=== PATIENT | female | born 1930 | race Caucasian/White ===

== ENCOUNTER → 2016-09-03 | Outpatient (REF) | payer MEDICARE, OTHER ==
[~2016-09-03] MED LIST: AMLO5TAB2 PO; ATEN100T PO; ATEN25TA PO; BISA10SU4 PR; CLONI1TA PO; FEBU40TA PO; LASI40TA PO; LOMO2.5T PO; NYST10PW TOP; TYLE325T5 PO
[2016-09-03 10:47] LABS: MEAN CORPUSCULAR HEMOGLOBIN 31.1 pg (27.0-33.0); MEAN CORPUSCULAR HGB CONC 32.8 g/dl (32.0-36.5); MEAN CORPUSCULAR VOLUME 94.7 fl (80.0-96.0); RED CELL DISTRIBUTION WIDTH 13.3 % (11.5-14.5); WHITE BLOOD COUNT 9.7 K/mm3 (4.0-10.0)
[2016-09-03 11:14] LABS: CALCIUM LEVEL 9.3 MG/DL (8.8-10.2); CREATININE FOR GFR 1.86 MG/DL (0.55-1.02); GLOMERULAR FILTRATION RATE 27.2 (>32)
== END ==
PROVIDERS: ATTEND Internal Medicine
DX: I50.9 Heart failure, unspecified (principal)

== ENCOUNTER → 2016-09-09 | Outpatient (REF) ==
[2016-09-09 12:18] LABS: MEAN CORPUSCULAR HEMOGLOBIN 32.3 pg (27.0-33.0); MEAN CORPUSCULAR HGB CONC 34.1 g/dl (32.0-36.5); MEAN CORPUSCULAR VOLUME 94.8 fl (80.0-96.0); RED CELL DISTRIBUTION WIDTH 12.4 % (11.5-14.5); WHITE BLOOD COUNT 9.6 K/mm3 (4.0-10.0)
[2016-09-09 13:12] LABS: CALCIUM LEVEL 9.6 MG/DL (8.8-10.2); CREATININE FOR GFR 1.77 MG/DL (0.55-1.02); GLOMERULAR FILTRATION RATE 28.8 (>32)
== END ==
PROVIDERS: ATTEND Internal Medicine
DX: I50.9 Heart failure, unspecified (principal)

== ENCOUNTER → 2016-09-16 | Outpatient (REF) ==
[2016-09-16 14:11] LABS: CALCIUM LEVEL 8.8 MG/DL (8.8-10.2); CREATININE FOR GFR 1.88 MG/DL (0.55-1.02); GLOMERULAR FILTRATION RATE 26.9 (>32); POTASSIUM SERUM 5.1 MEQ/L (3.5-5.1)
[2016-09-16 14:14] LABS: MEAN CORPUSCULAR HEMOGLOBIN 31.3 pg (27.0-33.0); MEAN CORPUSCULAR VOLUME 94.9 fl (80.0-96.0); RED CELL DISTRIBUTION WIDTH 13.2 % (11.5-14.5); WHITE BLOOD COUNT 10.7 K/mm3 (4.0-10.0)
== END ==
PROVIDERS: ATTEND Internal Medicine
DX: N18.9 Chronic kidney disease, unspecified (principal)

== ENCOUNTER 2016-10-14 19:53 | Inpatient (IN) | payer MEDICARE, OTHER ==
[~2016-10-14] VITALS: Ht 154.9 cm; Wt 83.5 kg
[~2016-10-14 19:53] MED LIST changes: -ACET65SU PR; -AMLO10TA2 PO; -ENEMENE3 PR; -FURO20TA2 PO; -MILKSUS PO; -MIRT1TAB PO
[2016-10-14] MEDS ORDERED: ACETAMINOPHEN 325 MG TAB As Ordered ONE (20:39)
[2016-10-14] MEDS ORDERED: ASPIRIN 325 MG TAB As Ordered ONE (20:39)
[2016-10-14 20:44] LABS: ABG BASE EXCESS 1.3 (-2.0-2.0); ABG DEVICE NASAL CANN; ABG HCO3 24.3 MEQ/L (22.0-26.0); ABG PARTIAL PRESSURE CO2 33.6 mmHg (35.0-45.0); ABG PARTIAL PRESSURE O2 67.8 mmHg (75.0-100.0); ABG STANDARD HCO3 25.6 MEQ/L (22.0-26.0); ABG TOTAL CO2 25.3 MEQ/L (23.0-31.0); ABG pH (ARTERIAL) 7.477 UNITS (7.350-7.450)
[2016-10-14 20:54] LABS: BASO % 0.2 % (0.0-1.0); EOS # 0.1 K/mm3 (0.0-0.50); EOS % 0.8 % (0.0-3.0); LARGE UNSTAINED CELL # 0.2 K/mm3 (0.0-0.4); LARGE UNSTAINED CELL % 1.6 % (0.0-4.0); LYMPH # 0.6 K/mm3 (1.5-4.5); LYMPH % 3.6 % (24.0-44.0); MEAN CORPUSCULAR HEMOGLOBIN 30.6 pg (27.0-33.0); MEAN CORPUSCULAR HGB CONC 32.6 g/dl (32.0-36.5); MEAN CORPUSCULAR VOLUME 93.9 fl (80.0-96.0); MONO # 0.6 K/mm3 (0.0-0.8); MONO % 4.8 % (0.0-5.0); NEUTROPHILS # 10.7 K/mm3 (1.8-7.7); PLATELET COUNT, AUTOMATED 179 k/mm3 (150-450); RED CELL DISTRIBUTION WIDTH 12.2 % (11.5-14.5); WHITE BLOOD COUNT 12.1 K/mm3 (4.0-10.0)
[2016-10-14 21:14] LABS: ALBUMIN/GLOBULIN RATIO 0.86 (1.00-1.93); BILIRUBIN,DIRECT 0.2 MG/DL (0.0-0.2); BILIRUBIN,TOTAL 0.4 MG/DL (0.2-1.0); CALCIUM LEVEL 8.2 MG/DL (8.8-10.2); CREATININE FOR GFR 2.18 MG/DL (0.55-1.02); GLOMERULAR FILTRATION RATE 22.7 (>32); POTASSIUM SERUM 4.7 MEQ/L (3.5-5.1); TOTAL PROTEIN 6.5 GM/DL (6.4-8.2)
[2016-10-14 21:28] LABS: INR 1.05
[2016-10-14] MEDS ORDERED: LevoFLOXacin/DEXTROSE 750 MG/150 ML BAG (J1956) As Ordered ONE (22:46)
[2016-10-14] MEDS ORDERED: AMLO10TA2 PO (23:25)
[2016-10-14] MEDS ORDERED: FURO20TA2 PO (23:25)
[2016-10-14] MEDS ORDERED: MILKSUS PO (23:25)
[2016-10-14] MEDS ORDERED: ATEN25TA PO (23:25)
[2016-10-14] MEDS ORDERED: ENEMENE3 PR (23:25)
[2016-10-14] MEDS ORDERED: MIRT1TAB PO (23:25)
[2016-10-14] MEDS ORDERED: ACET65SU PR (23:25)
[2016-10-15] VITALS (8 sets, daily range): BP systolic 107–174; BP diastolic 51–78
[2016-10-15] MEDS ORDERED: MOM 30ML SUSPENSION UDC PO PRN (00:15)
[2016-10-15] MEDS ORDERED: BISACODYL 10 MG SUPP PR PRN (00:15)
[2016-10-15] MEDS ORDERED: FLEET ENEMA PR PRN (00:15)
[2016-10-15] MEDS ORDERED: VANCOMYCIN INTERMITTENT/PULSE DOSING BY CLINICAL PHARMACIST PER DOSING PROTOCOL XX SCH (01:15)
--- NOTE | 2016-10-15 01:25 | HPEPDOC ---
General Date of Admission Oct 15, 2016 at 00:12 Chief Complaint The patient is a 86-year-old female admitted with a reason for visit of Healthcare Associated Pneumonia. History of Present Illness 86-year-old female with past medical history of gout, depression, dementia, hypertension, and CHF who presented from the assisted living facility for evaluation of respiratory distress. The extent of this history is limited given the patient's baseline dementia. According to EMS documentation the patient was noted to be in respiratory distress, with O2 saturation of 88% on room air, which improved with 2 L of nasal cannula. The patient also appeared to be more confused and agitated compared to her baseline. There were no reports suggesting any fevers, chills, chest pain, abdominal pain, or any vomiting/ diarrhea noted at the living facility. In the ER, a chest x-ray revealed an infiltrate suggestive of pneumonia. The patient has been started on broad-spectrum antibiotics, and she will be admitted to the hospitalist service for further evaluation and management of her hypoxia secondary to pneumonia. Home Medications Scheduled Amlodipine Besylate (Amlodipine Besylate) 10 Mg Tab 10 MG PO DAILY (Reported) Atenolol (Atenolol) 25 Mg Tab 12.5 MG PO DAILY (Reported) Febuxostat (Uloric) 40 Mg Tab 40 MG PO DAILY (Reported) AT DINNERTIME Furosemide (Furosemide) 20 Mg Tab 10 MG PO 3XW (Reported) FRIDAY, FRIDAY, FRIDAY AT QAM Mirtazapine (Mirtazapine) 7.5 Mg Tab 7.5 MG PO QHS (Reported) Scheduled PRN Acetaminophen (Tylenol) 325 Mg Tab 650 MG PO Q4H PRN PRN PAIN / FEVER (Reported ) Acetaminophen (Acetaminophen) 650 Mg Supp 650 MG NE Q4H PRN PRN PAIN / FEVER ( Reported) Bisacodyl (Bisacodyl) 10 Mg Sup 10 MG NE DAILY PRN PRN CONSTIPATION (Reported) Milk Of Magnesia (Milk of Magnesia) 1,200 Mg/15 Ml Tiffany 30 ML PO DAILY PRN PRN CONSTIPATION (Reported) Sodium Phosphate/Biphosphate (Enema 7-19 gm/118Ml) 1 Byron Byron 1 BYRON NE DAILY PRN PRN CONSTIPATION (Reported) Allergies Coded Allergies: No Known Drug Allergy (Verified Allergy, Unknown, 12/07/12) Past Medical History Medical History As noted in HPI. Surgical History Breast lumpectomy, hysterectomy Social History Unable to obtain social history given the patient's baseline dementia. Review of Symptoms Other systems Unable to fully obtain review of systems given the patient's baseline dementia. Physical Examination General Exam: Positive: Cooperative, No Acute Distress, Other (patient only oriented to person, but not to place, time, or situation) ENT Exam: Positive: Atraumatic, Mucous membr. moist/pink Neck Exam: Negative: JVD Chest Exam: Positive: Diminished Heart Exam: Positive: Normal S1, Normal S2, Rate Normal Telemetry: Positive: Sinus Abdomen Exam: Positive: Soft, Negative: Tenderness Extremity Exam: Positive: Swelling (1+ pitting edema in the lower extremities bilaterally), Negative: Tenderness Vital Signs As noted in the EMR. Laboratory Data Labs 24H Laboratory Tests 2 10/14/16 20:18: Arterial Blood pH 7.477H, Arterial Blood Partial Pressure CO2 33.6L, Arterial Blood Partial Pressure O2 67.8L, Arterial Blood Total CO2 25.3, Arterial Blood HCO3 24.3, Arterial Blood Base Excess 1.3, Arterial Blood Oxygen Saturation 94.7L, Blood Gas Bicarbonate Standard 25.6, Oxygen Delivery Device NASAL ERICK 10/14/16 20:25: Activated Partial Thromboplast Time 32.6, Aspartate Amino Transf (AST/SGOT) 41H , Alanine Aminotransferase (ALT/SGPT) 18, Alkaline Phosphatase 75, Total Bilirubin 0.4, Direct Bilirubin 0.2, Albumin 3.0L, Albumin/Globulin Ratio 0.86L , Anion Gap 10, White Blood Count 12.1H, Red Blood Count 4.21, Hemoglobin 12.9, Hematocrit 39.5, Mean Corpuscular Volume 93.9, Mean Corpuscular Hemoglobin 30.6 , Mean Corpuscular Hemoglobin Concent 32.6, Red Cell Distribution Width 12.2, Platelet Count 179, Neutrophils (%) (Auto) 89.0H, Lymphocytes (%) (Auto) 3.6L, Monocytes (%) (Auto) 4.8, Eosinophils (%) (Auto) 0.8, Basophils (%) (Auto) 0.2, Neutrophils # (Auto) 10.7H, Lymphocytes # (Auto) 0.6L, Monocytes # (Auto) 0.6, Eosinophils # (Auto) 0.1, Basophils # (Auto) 0.0, C-Reactive Protein, Quantitative 7.89H, Calcium Level 8.2L, Glomerular Filtration Rate 22.7L, Lactic Acid (Sepsis) 1.5, Large Unclassified Cells # 0.2, Large Unclassified Cells % 1.6, Prothromb Time International Ratio 1.05, Prothrombin Time 13.8, Total Protein 6.5 10/14/16 20:35: Urine Amorphous Sediment MODERATEH, Urine Appearance CLOUDYH, Urine Color YELLOW , Urine pH 5.0, Urine Specific [place] 1.013, Urine Protein 1+H, Urine Glucose ( UA) NEGATIVE, Urine Ketones NEGATIVE, Urine Urobilinogen 0.2, Urine Bilirubin NEGATIVE, Urine Leukocyte Esterase NEGATIVE, Urine Bacteria (Auto) 1+H, Urine Blood NEGATIVE, Urine Calcium Carbonate Cryst(Auto) , Urine Calcium Oxalate Cryst (Auto) , Urine Calcium Phosphate Coral (Auto) , Urine Cellular Casts , Urine Cystine Crystals , Urine Granular Casts (Auto) , Urine Hyaline Casts (Auto ) 0, Urine Leucine Crystals , Urine Mucus (Auto) , Urine Nitrite NEGATIVE, Urine Oval Fat Bodies (Auto) , Urine RBC (Auto) 1, Urine Renal Epithelial Cells , Urine Sperm (Auto) , Urine Squamous Epithelial Cells 1, Urine Transitional Epithelial Cells , Urine Trichomonas (Auto) , Urine Triple Phosphate Cryst (Auto ) , Urine Tyrosine Crystals , Urine Uric Acid Crystals (Auto) , Urine WBC (Auto ) 1, Urine Waxy Casts (Auto) , Urine Yeast-Like Cells (Auto) CBC/BMP Laboratory Tests 10/14/16 20:25 Red Blood Count 4.21, Mean Corpuscular Volume 93.9, Mean Corpuscular Hemoglobin 30.6, Mean Corpuscular Hemoglobin Concent 32.6, Red Cell Distribution Width 12.2 , Neutrophils (%) (Auto) 89.0 H, Lymphocytes (%) (Auto) 3.6 L, Monocytes (%) ( Auto) 4.8, Eosinophils (%) (Auto) 0.8, Basophils (%) (Auto) 0.2, Neutrophils # ( Auto) 10.7 H, Lymphocytes # (Auto) 0.6 L, Monocytes # (Auto) 0.6, Eosinophils # (Auto) 0.1, Basophils # (Auto) 0.0 Microbiology Microbiology 10/14/16 Blood Culture, Received Pending 10/14/16 Blood Culture, Received Pending 10/14/16 Respiratory Virus Panel (PCR) (LATONYA) - Final, Complete 10/14/16 Urine Culture, Received Pending Plan / VTE VTE Prophylaxis Ordered?: Yes Plan Plan Healthcare associated pneumonia We will admit the patient to the telemetry unit Chest x-ray noted Blood cultures, sputum cultures, respiratory panel ordered We will empirically cover the patient with vancomycin and Zosyn Continue to monitor the patient's respiratory status Chronic kidney disease Serum creatinine noted to be 2.18 (the patient's serum creatinine noted to be between 1.8 and 2.0 at baseline) Will withhold from nephrotoxic agents at this time Gentle IV fluid hydration Repeat BMP in a.m. ? Atrial fibrillation noted on EKG Patient given 325 mg of aspirin in the ER Patient noted to be in normal sinus rhythm on gambling monitor Possibly precipitated by underlying pneumonia TSH level, echocardiogram ordered Repeat EKG in the a.m. Hypertension, stable Continue current regimen History of congestive heart failure Appears volume compensated at this time We'll continue the patient's dose of Lasix 10 mg every Mondays, Wednesdays, Fridays Echocardiogram ordered Gout Continue Uloric Constipation Continue bowel regimen as ordered DVT prophylaxis-heparin subcutaneous The patient will be admitted under the service of Dr. Garcia, who will begin to follow the patient on 10/15/16 at 7 AM. JOHN MONTANO MD Oct 15, 2016 01:24
--- NOTE | 2016-10-15 01:48 | PHACANCOPD ---
PHARMACY VANCOMYCIN DOSING Pt Demographics Demographics Patient Age:86 , Weight:90.800 , Gender: female Adjusted Body Weight Date: 10/15/16, Adjusted Body Weight: [64.3] Kg Events Past 24 Hours Events Past 24 Hours: NO: Change in CrCl, Dialysis, Diuretic Therapy, Elevation in WBC, Fever, Other, Pending Diagnostics, Pending Procedures Vancomycin Vancomycin Target Ranges: 15-20 mcg/ml Vancomycin Load Y/N: Yes Load Dose Date Time Vancomycin Load Dose: 1000MG Date: 10-15 Time: 0200 Vancomycin Dose Date: 10/15/16. Current Vancomycin Dose: Intermittent Dosing?: Yes Labs Labs Item Value Date Time White Blood Count 12.1 K/mm3 H 10/14/162024 Creatinine 2.18 MG/DL H 10/14/162024 Blood Urea Nitrogen 43 MG/DL H 10/14/162024 Vital Signs Label Value Date Time Patient Temperature 97.8 degrees F 10/15/16 0129 Temperature Source Tympanic 10/15/16 0129 Micro Microbiology 10/14/16 Blood Culture, Received Pending 10/14/16 Blood Culture, Received Pending 10/14/16 Respiratory Virus Panel (PCR) (LATONYA) - Final, Complete 10/14/16 Urine Culture, Received Pending Creatinine Clearance Date:10/15/16. Creatinine Clearance: [14]. Pending Labs random 10-15 in am Assessment and Plan Maintaining Current Dose?: Yes Reason for dose change: No Dose Change Pharmacist Note Pharmacist Note Date: 10/15/16. Pharmacist note:Dosed intermittent per levels. First random am of 2-. Will continue to monitor and make adjustments as needed. MIKAELA DUQUE PHARMACY Oct 15, 2016 01:48
[2016-10-15] MEDS ORDERED: VANCOMYCIN HCL 1,000 MG, VIAL MATE ADAPTER 1 EACH in D5W 250 ML IV SCH (02:00)
[2016-10-15] MEDS ORDERED: VANCOMYCIN 1000 MG/20 ML VIAL (J3370) As Ordered ONE (02:04)
[2016-10-15] MEDS ORDERED: PIPERACILLIN/TAZOBACTAM SOD 2.25 GM in D5W MINI-BAG PLUS 50 ML IV SCH (03:00)
[2016-10-15] MEDS ORDERED: ZOSYN 2.25 GM VIAL (J2543) As Ordered ONE (03:22)
[2016-10-15] MEDS: PIPERACILLIN/TAZOBACTAM SOD 2.25 GM in D5W MINI-BAG PLUS 50 ML IV SCH ×3 (04:22→22:31)
[2016-10-15] MEDS ORDERED: ACETAMINOPHEN TAB 650MG DOSE (2X325MG) As Ordered ONE (04:25)
[2016-10-15] MEDS: ACETAMINOPHEN TAB 650MG DOSE (2X325MG) PO PRN ×2 (04:29→16:10)
[2016-10-15] MEDS ORDERED: HEPARIN SOD (PORCINE) 5000 UNITS/ML VIAL As Ordered ONE (06:34)
[2016-10-15] MEDS: HEPARIN SOD (PORCINE) 5000 UNITS/ML VIAL SC SCH ×3 (06:42→22:31)
[2016-10-15 07:41] LABS: MEAN CORPUSCULAR HEMOGLOBIN 31.4 pg (27.0-33.0); MEAN CORPUSCULAR HGB CONC 33.7 g/dl (32.0-36.5); WHITE BLOOD COUNT 7.9 K/mm3 (4.0-10.0)
--- NOTE | 2016-10-15 07:49 | REP ---
Clinical: Fever. Chest pain. Technique: AP and lateral. Comparison: 08/23/2016. Findings: Mediastinum and cardiac silhouette are stable. Lung ram demonstrate chronic interstitial changes. Superimposed basilar atelectasis/infiltrate cannot be excluded. Small left pleural effusion cannot be excluded. No pneumothorax. Skeletal structures stable. Impression: Limited examination. Cannot exclude superimposed atelectasis or small left pleural effusion. Signed by Jeff Goodwin MD 10/15/2016 07:39 A
[2016-10-15 08:10] LABS: CALCIUM LEVEL 8.1 MG/DL (8.8-10.2); CREATININE FOR GFR 2.19 MG/DL (0.55-1.02); GLOMERULAR FILTRATION RATE 22.5 (>32); POTASSIUM SERUM 4.3 MEQ/L (3.5-5.1); VANCOMYCIN RANDOM 17.3 UG/ML
--- NOTE | 2016-10-15 08:11 | ECGEPIP ---
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
--- NOTE | 2016-10-15 08:13 | ECGEPIP ---
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
[2016-10-15] MEDS: amLODIPine 10 MG TAB PO SCH (09:00)
[2016-10-15] MEDS ORDERED: ATENOLOL 25 MG TAB PO SCH (09:00)
[2016-10-15] MEDS ORDERED: ONDANSETRON 4MG/2ML VIAL (J2405) As Ordered ONE (11:36)
[2016-10-15] MEDS: ONDANSETRON 4MG/2ML VIAL (J2405) IV PRN ×2 (11:40→12:43)
--- NOTE | 2016-10-15 12:12 | EDDOCDS ---
Nurse's Notes [facility] Name: Ariela Driscoll Age: 86 yrs Sex: Female : 1930 Arrival Date: 10/14/2016 Time: 19:53 Bed Admit Hold Private MD: Diagnosis: Lobar pneumonia, unspecified organism;Atrial fibrillation and flutter Presentation: 10/14 20:02 Presenting complaint: EMS states: Pt to ED from assisted living facility for evaluation mv5 of "respiratory distress", EMS reported no respiratory distress observed upon arrival, RA 02 sat 88%, improved with 2LNC. Pt had episode of vomiting when moved from bed to stretcher per EMS. Pt warm to touch. Pt confused at baseline, arrives awake and alert, MESSINA. Adult Sepsis Screening: The patient does not have new or worsening altered mentation. Patient's respiratory rate is less than 22. Systolic blood pressure is greater than 100. Patient has a qSOFA score of 0- Negative Sepsis Screen. Suicide/Homicide risk assessment- the patient denies having any suicidal and/or homicidal ideations and does not present with any other emotional, behavioral or mental health complaints. Status: Patient is not a front services agent or dependent. Transition of care: patient was received from [facility]-assisted. 20:02 Acuity: ASHWINI Level 3 mv5 20:02 Method Of Arrival: Ambulance mv5 Triage Assessment: 20:11 General: Appears in no apparent distress. Pain: Denies pain. The patient is triaged at mv5 the bedside. See Assessment in Nurses Notes section of ED record. Neurological: Level of Consciousness is awake, alert, Oriented to person. Cardiovascular: Capillary refill < 3 seconds Heart tones S1 S2 present. Respiratory: Airway is patent Respiratory effort is even, unlabored, Respiratory pattern is regular, symmetrical. Derm: Skin is pink, warm & dry. Historical: - Allergies: no known allergies; - Home Meds: 1. mirtazapine 7.5 mg Oral tab once daily 2. furosemide 10 mg tab oral tab every Mon/Wed/Fri 3. amlodipine 10 mg Oral tab 1 tab once daily 4. atenolol 12.5 mg tab Oral tab once daily 5. bisacodyl 10 mg Rectal supp 1 suppository as needed 6. acetaminophen 325 mg Oral tab 2 tabs as needed - PMHx: breast cancer; CHF; Dementia; Depression; Gout; Hypertension; UTI; - PSHx: breast lumpectomy; Hysterectomy; - Social history: Smoking status: unknown if patient ever smoked tobacco. No barriers to communication noted, The patient speaks fluent Danish. - Family history: No immediate family members are acutely ill. - : The pt / caregiver states he / she is not on anticoagulants. Home medication list is obtained from PCP visit record. - Exposure Risk Screening:: None identified. Assessment: 20:13 General: See triage assessment.. mv5 20:44 General: Appears in no apparent distress, comfortable, well nourished, well groomed, mv5 Behavior is cooperative, pleasant. Pain: Denies pain. Neurological: Oriented to person. Cardiovascular: Rhythm is atrial flutter variable. Respiratory: Airway is patent Respiratory effort is even, unlabored, Respiratory pattern is regular, symmetrical, Breath sounds are diminished in left posterior lower lobe, right posterior middle lobe and right posterior lower lobe. GI: No deficits noted. : Straight cath completed, pt tolerated well. Small amount of clear yellow urine obtained. Urine is clear, wears incontinence brief. Derm: Skin is pink, warm & dry. 21:20 General: Appears in no apparent distress, to be sleeping. Pain: Denies pain. mv5 Cardiovascular: Rhythm is irregular. Respiratory: Airway is patent Respiratory effort is even, unlabored, Respiratory pattern is regular, symmetrical. Derm: Skin is pink, warm & dry. 22:40 General: Appears in no apparent distress, well nourished, Behavior is cooperative. mv5 Neurological: Level of Consciousness is Oriented to person, Pt wakes to verbal stim.. Cardiovascular: Rhythm is atrial flutter. Respiratory: Airway is patent Respiratory effort is even, unlabored, Respiratory pattern is regular, symmetrical, Derm: Skin is pink, warm & dry. 23:21 General: Appears in no apparent distress, comfortable, Behavior is cooperative, mv5 pleasant. Pain: Location: left quadriceps and left knee Pain currently is 4 out of 10 on a pain scale. Pain does not radiate. Pain began Family reports hx of leg pain r/t arthritis. Pt treats with Tylenol, pt administered Tylenol previously. Will continue to monitor. Cardiovascular: Rhythm is sinus rhythm No ectopy. Derm: Skin is pink, warm & dry. 10/15 00:11 General: Appears in no apparent distress, Pt assisted to reposition in bed.. mv5 Cardiovascular: Rhythm is sinus rhythm No ectopy. Respiratory: Airway is patent Respiratory effort is even, unlabored, Respiratory pattern is regular, symmetrical. Derm: Skin is pink, warm & dry. 02:23 Cardiovascular: Rhythm is atrial fibrillation. sep 06:26 Cardiovascular: Rhythm is atrial fibrillation Other afib with jorge arrythmia. sep Vital Signs: 10/14 19:58 Temp 103.5(TE); ar3 20:05 BP 152 / 77; Pulse 81; Resp 18; Temp 103.5(TE); Pulse Ox 92% on 3 lpm NC; Weight 88.77 lr2 kg; Height 61 in. (154.94 cm); Pain 0/10; 20:37 Temp 101.1(R); mv5 20:44 BP 165 / 65; Pulse 85; Resp 18; Pulse Ox 94% 2 lpm ; mv5 21:18 BP 110 / 51 (auto/); mv5 21:18 Pulse 68 MON; Resp 16; Temp 99.8(TE); Pulse Ox 92% ; mv5 22:18 BP 131 / 61 (auto/); mv5 22:18 Pulse 72 MON; Pulse Ox 93% ; mv5 22:48 BP 138 / 65 (auto/); mv5 22:48 Pulse 58 MON; Pulse Ox 93% ; mv5 23:18 BP 136 / 60 (auto/); mv5 23:18 Pulse 60 MON; Pulse Ox 93% ; mv5 23:48 BP 132 / 63 (auto/); mv5 23:48 Pulse 58 MON; Pulse Ox 94% ; mv5 10/15 00:03 BP 103 / 55 (auto/); sep 00:04 Pulse 122 MON; Pulse Ox 98% ; sep 00:18 BP 98 / 57 (auto/); sep 00:19 Pulse 119 MON; Pulse Ox 98% ; sep 00:33 BP 94 / 51 (auto/); sep 00:34 Pulse 117 MON; Pulse Ox 99% ; sep 00:48 BP 100 / 57 (auto/); sep 00:48 Pulse 116 MON; Pulse Ox 95% ; sep 02 20:05 Body Mass Index 36.98 (88.77 kg, 154.94 cm) lr2 Vitals: 10/14 20:11 Log In Time N/A - ambulance arrival. mv5 ED Course: 19:57 Patient visited by Aj Aguirre, Furniture Crater. ml3 19:57 Leila Gonzalez,RN is Primary Nurse. ml3 19:57 Patient moved to Waiting ml3 19:57 Patient moved to 7 ml3 19:58 Patient visited by Corie Sawant PCA. ar3 20:05 [facility] le 20:05 Triage Initiated mv5 20:09 Patient visited by Samreen Floyd FNP. le 20:09 Patient visited by Samreen Floyd FNP. le 20:22 -Arterial Blood Gas Sent. jc3 20:35 BLOOD CULTURES Sent. mv5 20:35 -Blood Culture Sent. mv5 20:35 C Reactive Protein Sent. mv5 20:36 CBC with Diff Sent. mv5 20:36 Lactic Acid (Suarez tube on ice) Sent. mv5 20:36 Liver Profile Sent. mv5 20:36 MED Profile Sent. mv5 20:36 PT/INR Sent. mv5 20:36 PTT Sent. mv5 20:36 Urinalysis Sent. mv5 20:36 Urine Culture Sent. mv5 20:40 EKG done. (by ED staff). lr2 20:47 RESPIRATORY PANEL Sent. cln 20:50 Patient visited by Leila Gonzalez RN. mv5 21:20 Patient visited by Leila Gonzalez,DARSHAN. mv5 21:52 Patient visited by Leila Gonzalez,DARSHAN. mv5 22:12 [facility] Payment Agreement was scanned into [employer] and attached to record. gjb 22:15 Patient name changed from Ariela\\S\\\\S\\Americo\\S\\ to Ariela\\S\\Rhianna\\S\\[place]. EDMS 22:39 Patient visited by Leila Gonzalez,DARSHAN. mv5 22:41 Patient visited by Leila Gonzalez,DARSHAN. mv5 22:56 Domingo Washington is Hospitalizing Provider. le 10/15 00:28 Patient moved to Admit Hold sep 00:50 Aleisha Camarillo,DARSHAN is Primary Nurse. sep 00:50 Patient moved to 21 sep 00:53 Patient moved to Admit Hold ml3 01:01 Patient visited by Tong Rhoades PCA. kb5 01:01 EKG done. (by ED staff). Reviewed by Samreen WOO. kb5 03:18 Primary Nurse role handed off by Aleisha Camarillo,DARSHAN kb5 07:07 Geovanny Whiteside MD is Attending Physician. pc 07:12 Primary Nurse role handed off by Leila Gonzalez,DARSHAN mv5 08:06 Chest, 2 View (pa\\E\\lat) Returned. EDMS 08:40 EKG-ADULT Returned. EDMS 08:40 EKG-ADULT Returned. EDMS Administered Medications: 10/14 20:44 Drug: Acetaminophen 650 mg [acetaminophen 325 mg tablet (2 tabs)] Route: PO; mv5 21:16 Follow up: Response: No Adverse Reaction mv5 20:44 Drug: Aspirin 325 mg [aspirin 325 mg tablet (1 tabs)] Route: PO; mv5 21:15 Follow up: Response: No Adverse Reaction mv5 22:54 Drug: levofloxacin 750 mg [levofloxacin 750 mg/150 mL in 5 % dextrose intravenous mv5 piggyback] Route: IVPB; Infused Over: 90 mins; Site: left antecubital; RT: 20:22 ABG's drawn from right radial artery pressure held for 5 minutes no bleeding noted jc3 pressure bandage applied specimen sent pt. tolerated well. Order Results: Lab Order: -Arterial Blood Gas; SPEC'M 10/14/16 20:18 Test: ABG pH (ARTERIAL); Value: 7.477; Range: 7.350-7.450; Abnormal: Above high normal; Units: UNITS; Status: F Test: ABG PARTIAL PRESSURE CO2; Value: 33.6; Range: 35.0-45.0; Abnormal: Below low normal; Units: mmHg; Status: F Test: ABG PARTIAL PRESSURE O2; Value: 67.8; Range: 75.0-100.0; Abnormal: Below low normal; Units: mmHg; Status: F Test: ABG TOTAL CO2; Value: 25.3; Range: 23.0-31.0; Units: MEQ/L; Status: F Test: ABG HCO3; Value: 24.3; Range: 22.0-26.0; Units: MEQ/L; Status: F Test: ABG BASE EXCESS; Value: 1.3; Range: -2.0-2.0; Status: F Test: ABG STANDARD HCO3; Value: 25.6; Range: 22.0-26.0; Units: MEQ/L; Status: F Test: ABG O2 SATURATION; Value: 94.7; Range: 95.0-99.0; Abnormal: Below low normal; Units: %; Status: F Test: ABG DEVICE; Value: NASAL ERICK; Status: F Lab Order: C Reactive Protein; SPEC10/14/16 20:25 Test: C REACTIVE PROTEIN QUANTITATIV; Value: 7.89; Range: 0.00-0.30; Abnormal: Above high normal; Units: MG/DL; Status: F Lab Order: CBC with Diff; 10/14/16 20:25 Test: WHITE BLOOD COUNT; Value: 12.1; Range: 4.0-10.0; Abnormal: Above high normal; Units: K/mm3; Status: F Test: RED BLOOD COUNT; Value: 4.21; Range: 4.00-5.40; Units: M/mm3; Status: F Test: HEMOGLOBIN; Value: 12.9; Range: 12.0-16.0; Units: g/dl; Status: F Test: HEMATOCRIT; Value: 39.5; Range: 36.0-47.0; Units: %; Status: F Test: MEAN CORPUSCULAR VOLUME; Value: 93.9; Range: 80.0-96.0; Units: fl; Status: F Test: MEAN CORPUSCULAR HEMOGLOBIN; Value: 30.6; Range: 27.0-33.0; Units: pg; Status: F Test: MEAN CORPUSCULAR HGB CONC; Value: 32.6; Range: 32.0-36.5; Units: g/dl; Status: F Test: RED CELL DISTRIBUTION WIDTH; Value: 12.2; Range: 11.5-14.5; Units: %; Status: F Test: PLATELET COUNT, AUTOMATED; Value: 179; Range: 150-450; Units: k/mm3; Status: F Test: NEUTROPHILS %; Value: 89.0; Range: 36.0-66.0; Abnormal: Above high normal; Units: %; Status: F Test: LYMPH %; Value: 3.6; Range: 24.0-44.0; Abnormal: Below low normal; Units: %; Status: F Test: MONO %; Value: 4.8; Range: 0.0-5.0; Units: %; Status: F Test: EOS %; Value: 0.8; Range: 0.0-3.0; Units: %; Status: F Test: BASO %; Value: 0.2; Range: 0.0-1.0; Units: %; Status: F Test: LARGE UNSTAINED CELL %; Value: 1.6; Range: 0.0-4.0; Units: %; Status: F Test: NEUTROPHILS #; Value: 10.7; Range: 1.8-7.7; Abnormal: Above high normal; Units: K/mm3; Status: F Test: LYMPH #; Value: 0.6; Range: 1.5-4.5; Abnormal: Below low normal; Units: K/mm3; Status: F Test: MONO #; Value: 0.6; Range: 0.0-0.8; Units: K/mm3; Status: F Test: EOS #; Value: 0.1; Range: 0.0-0.50; Units: K/mm3; Status: F Test: BASO #; Value: 0.0; Range: 0.0-0.2; Units: K/mm3; Status: F Test: LARGE UNSTAINED CELL #; Value: 0.2; Range: 0.0-0.4; Units: K/mm3; Status: F Lab Order: Lactic Acid (Suarez tube on ice); SPEC' 10/14/16 20:25 Test: LACTIC ACID SEPSIS PROTOCOL; Value: 1.5; Range: 0.4-2.0; Units: MMOL/L; Status: F Lab Order: Liver Profile; SPEC'M 10/14/16 20:25 Test: AST/SGOT; Value: 41; Range: 15-37; Abnormal: Above high normal; Units: U/L; Status: F Test: ALT/SGPT; Value: 18; Range: 12-78; Units: U/L; Status: F Test: ALKALINE PHOSPHATASE; Value: 75; Range: 45-117; Units: U/L; Status: F Test: BILIRUBIN,TOTAL; Value: 0.4; Range: 0.2-1.0; Units: MG/DL; Status: F Test: BILIRUBIN,DIRECT; Value: 0.2; Range: 0.0-0.2; Units: MG/DL; Status: F Test: TOTAL PROTEIN; Value: 6.5; Range: 6.4-8.2; Units: GM/DL; Status: F Test: ALBUMIN; Value: 3.0; Range: 3.2-5.2; Abnormal: Below low normal; Units: GM/DL; Status: F Test: ALBUMIN/GLOBULIN RATIO; Value: 0.86; Range: 1.00-1.93; Abnormal: Below low normal; Status: F Lab Order: MED Profile; [facility] 10/14/16 20:25 Test: GLUCOSE, FASTING; Value: 148; Range: 83-110; Abnormal: Above high normal; Units: MG/DL; Status: F Test: BLOOD UREA NITROGEN; Value: 43; Range: 7-18; Abnormal: Above high normal; Units: MG/DL; Status: F Test: CREATININE FOR GFR; Value: 2.18; Range: 0.55-1.02; Abnormal: Above high normal; Units: MG/DL; Status: F Test: GLOMERULAR FILTRATION RATE; Value: 22.7; Range: >32; Abnormal: Below low normal; Status: F Test: SODIUM LEVEL; Value: 142; Range: 136-145; Units: MEQ/L; Status: F Test: POTASSIUM SERUM; Value: 4.7; Range: 3.5-5.1; Units: MEQ/L; Status: F Test: CHLORIDE LEVEL; Value: 106; Range: 98-107; Units: MEQ/L; Status: F Test: CARBON DIOXIDE LEVEL; Value: 26; Range: 21-32; Units: MEQ/L; Status: F Test: ANION GAP; Value: 10; Range: 8-16; Units: MEQ/L; Status: F Test: CALCIUM LEVEL; Value: 8.2; Range: 8.8-10.2; Abnormal: Below low normal; Units: MG/DL; Status: F Test Note: ; Units are mL/min/1.73 m2 Chronic Kidney Disease Staging per NKF: Stage I & II GFR >=60 Normal to Mildly Decreased Stage III GFR 30-59 Moderately Decreased Stage IV GFR 15-29 Severely Decreased Stage V GFR <15 Very Little GFR Left ESRD GFR <15 on ATTACHE Lab Order: PT/INR; [facility] 10/14/16 20:25 Test: PROTHROMBIN TIME; Value: 13.8; Range: 12.3-14.5; Units: SECONDS; Status: F Test: INR; Value: 1.05; Status: F Test Note: ; THERAPUTIC HUMAN INR VALUES INDICATIONS NORMAL RANGES PROPHYLAXIS/TREATMENT OF: VENOUS THROMBOSIS 2.0-3.0 PULMONARY EMBOLISM 2.0-3.0 PREVENTION OF SYSTEMIC EMBOLISM FROM: TISSUE HEART VALVES 2.0-3.0 ACUTE MYOCARDIAL INFARCTION 2.0-3.0 VALVULAR HEART DISEASE 2.0-3.0 ATRIAL FIBRILLATION 2.0-3.0 MECHANICAL VALVES(HIGH RISK) 2.5-3.5 RECURRENT MYOCARDIAL INFARCTION 2.5-3.5 Lab Order: PTT; [facility] 10/14/16 20:25 Test: PARTIAL THROMBOPLASTIN TIME; Value: 32.6; Range: 26.6-37.1; Units: SECONDS; Status: F Lab Order: Urinalysis; [facility] 10/14/16 20:35 Test: APPEARANCE, URINE; Value: CLOUDY; Range: CLEAR; Abnormal: Above high normal; Status: F Test: COLOR, URINE; Value: YELLOW; Range: YELLOW; Status: F Test: PH,URINE; Value: 5.0; Range: 5.0-9.0; Units: UNITS; Status: F Test: SPECIFIC GRAVITY URINE AUTO; Value: 1.013; Range: 1.002-1.035; Status: F Test: PROTEIN, URINE AUTO; Value: 1+; Range: NEGATIVE; Abnormal: Above high normal; Units: mg/dL; Status: F Test: GLUCOSE, URINE (UA) AUTO; Value: NEGATIVE; Range: NEGATIVE; Units: mg/dL; Status: F Test: KETONE, URINE AUTO; Value: NEGATIVE; Range: NEGATIVE; Units: mg/dL; Status: F Test: UROBILINOGEN, URINE AUTO; Value: 0.2; Range: 0.0-2.0; Units: mg/dL; Status: F Test: BILIRUBIN, URINE AUTO; Value: NEGATIVE; Range: NEGATIVE; Status: F Test: NITRITE, URINE AUTO; Value: NEGATIVE; Range: NEGATIVE; Status: F Test: LEUKOCYTE ESTERASE, URINE AUTO; Value: NEGATIVE; Range: NEGATIVE; Status: F Test: BLOOD, URINE BLOOD; Value: NEGATIVE; Range: NEGATIVE; Status: F Test: WBC, URINE AUTO; Value: 1; Range: 0-3; Units: /HPF; Status: F Test: RBC, URINE AUTO; Value: 1; Range: 0-3; Units: /HPF; Status: F Test: BACTERIA, URINE AUTO; Value: 1+; Range: NEGATIVE; Abnormal: Above high normal; Status: F Test: SQUAMOUS EPITHELIAL CELL UR AU; Value: 1; Range: 0-6; Units: /HPF; Status: F Test: HYALINE CAST, URINE AUTO; Value: 0; Range: 0-1; Units: /LPF; Status: F Test: AMORPHOUS SEDIMENT; Value: MODERATE; Range: NEGATIVE; Abnormal: Above high normal; Status: F Lab Order: RESPIRATORY PANEL; SPEC'M 10/14/16 20:42 Test: RESPIRATORY PANEL; Value: RP PANEL RESULT NEGATIVE by PCR; Status: F Test: RESPIRATORY PANEL; Value: Comments:; Status: F Test Note: ; This respiratory PCR panel detects Influenza A H1, H3 and 2009 H1 viruses, Influenza B virus, Respiratory syncytial virus, Human metapneumovirus, Parainfluenza virus 1, 2, 3 and 4, Adenovirus, Rhinovirus/Enterovirus, Coronavirus HKU1, NL63, OC43 and 229E, Bordetella pertussis, Mycoplasma pneumoniae and Chlamydia pneumoniae. Lab Order: BASIC METABOLIC PROFILE; SPEC'M 10/15/16 06:55 Test: GLUCOSE, FASTING; Value: 94; Range: 83-110; Units: MG/DL; Status: F Test: BLOOD UREA NITROGEN; Value: 45; Range: 7-18; Abnormal: Above high normal; Units: MG/DL; Status: F Test: CREATININE FOR GFR; Value: 2.19; Range: 0.55-1.02; Abnormal: Above high normal; Units: MG/DL; Status: F Test: GLOMERULAR FILTRATION RATE; Value: 22.5; Range: >32; Abnormal: Below low normal; Status: F Test: SODIUM LEVEL; Value: 140; Range: 136-145; Units: MEQ/L; Status: F Test: POTASSIUM SERUM; Value: 4.3; Range: 3.5-5.1; Units: MEQ/L; Status: F Test: CHLORIDE LEVEL; Value: 105; Range: 98-107; Units: MEQ/L; Status: F Test: CARBON DIOXIDE LEVEL; Value: 26; Range: 21-32; Units: MEQ/L; Status: F Test: ANION GAP; Value: 9; Range: 8-16; Units: MEQ/L; Status: F Test: CALCIUM LEVEL; Value: 8.1; Range: 8.8-10.2; Abnormal: Below low normal; Units: MG/DL; Status: F Test Note: ; Units are mL/min/1.73 m2 Chronic Kidney Disease Staging per NKF: Stage I & II GFR >=60 Normal to Mildly Decreased Stage III GFR 30-59 Moderately Decreased Stage IV GFR 15-29 Severely Decreased Stage V GFR <15 Very Little GFR Left ESRD GFR <15 on ATTACHE Lab Order: COMPLETE BLOOD COUNT; SPEC'10/15/16 06:55 Test: WHITE BLOOD COUNT; Value: 7.9; Range: 4.0-10.0; Units: K/mm3; Status: F Test: RED BLOOD COUNT; Value: 4.04; Range: 4.00-5.40; Units: M/mm3; Status: F Test: HEMOGLOBIN; Value: 12.7; Range: 12.0-16.0; Units: g/dl; Status: F Test: HEMATOCRIT; Value: 37.5; Range: 36.0-47.0; Units: %; Status: F Test: MEAN CORPUSCULAR VOLUME; Value: 93.0; Range: 80.0-96.0; Units: fl; Status: F Test: MEAN CORPUSCULAR HEMOGLOBIN; Value: 31.4; Range: 27.0-33.0; Units: pg; Status: F Test: MEAN CORPUSCULAR HGB CONC; Value: 33.7; Range: 32.0-36.5; Units: g/dl; Status: F Test: RED CELL DISTRIBUTION WIDTH; Value: 12.0; Range: 11.5-14.5; Units: %; Status: F Test: PLATELET COUNT, AUTOMATED; Value: 142; Range: 150-450; Abnormal: Below low normal; Units: k/mm3; Status: F Lab Order: TROPONIN; SPEC10/15/16 01:32 Test: TROPONIN I; Value: 0.08; Range: < 0.10; Units: NG/ML; Status: F Test Note: ; Troponin I Reference Interval for [employer] [place] LOCI: 99th Percentile= 0.00-0.045 ng/ml Risk Stratification: <= 0.10 ng/ml Decreased Risk for Adverse Clinical Events. 0.10-1.50 ng/ml Increased Risk for Adverse Clinical Events. Evaluation of additional criterion and/or repeat testing in 2-6 hours is suggested to rule out myocardial damage. >= 1.50 ng/ml Indicative of Myocardial Injury. Lab Order: THYROID STIMULATING HORMONE; SPEC'10/15/16 06:55 Test: THYROID STIMULATING HORMONE; Value: 4.660; Range: 0.358-3.740; Abnormal: Above high normal; Units: uIU/ML; Status: F Lab Order: TROPONIN; SPEC'10/15/16 06:55 Test: TROPONIN I; Value: 0.05; Range: < 0.10; Abnormal: Delta; Units: NG/ML; Status: F Test Note: ; Troponin I Reference Interval for [employer] [place] Boqii: 99th Percentile= 0.00-0.045 ng/ml Risk Stratification: <= 0.10 ng/ml Decreased Risk for Adverse Clinical Events. 0.10-1.50 ng/ml Increased Risk for Adverse Clinical Events. Evaluation of additional criterion and/or repeat testing in 2-6 hours is suggested to rule out myocardial damage. >= 1.50 ng/ml Indicative of Myocardial Injury. Lab Order: VANCOMYCIN RANDOM; SPEC'10/15/16 06:55 Test: VANCOMYCIN RANDOM; Value: 17.3; Units: UG/ML; Status: F Radiology Order: Chest, 2 View (pa\\E\\lat) Test: Chest, 2 View (pa\\E\\lat) REASON FOR EXAMINATION: fever; Clinical: Fever. Chest pain.; ; Technique: AP and lateral.; ; Comparison: 08/23/2016.; ; Findings:; Mediastinum and cardiac silhouette are stable. Lung ram demonstrate chronic; interstitial changes. Superimposed basilar atelectasis/infiltrate cannot be; excluded. Small left pleural effusion cannot be excluded. No pneumothorax.; Skeletal structures stable.; ; Impression:; Limited examination. Cannot exclude superimposed atelectasis or small left; pleural effusion.; ; ; Signed by; Jeff Goodwin MD 10/15/2016 07:39 A; Radiology Order: EKG-ADULT Test: EKG-ADULT REASON FOR EXAMINATION: new a fib/flutter; Stationary ECG Study; [facility] ED; ; Test Date: 2016-10-14; Pat Name: [facility] Department:; Room: [place] [address]; Gender: F Keeper Head: lennox; : 1930 Requested By: SAMREEN WOO; Order Number: [id number] Reading MD: Nicolasa Caballero; Measurements; Intervals [place]; Rate: 85 P:; WI: 0 QRS: 101; QRSD: 72 T: -5; QT: 361; QTc: 430; Interpretive Statements; ATRIAL FIBRILLATION; MARKED RIGHT AXIS DEVIATION; NONSPECIFIC ST T-WAVE ABNORMALITY; PRIOR SINUS BRADYCARDIA 08/23/16; Electronically Signed On 10-15-2016 8:11:23 EST by Nicolasa Caballero; Radiology Order: EKG-ADULT Test: EKG-ADULT REASON FOR EXAMINATION: converted to NSR; Stationary ECG Study; [facility] ED; ; Test Date: 2016-10-15; Pat Name: [facility] Department:; Room: [place] [address]; Gender: F Keeper Head: MIRELLA; : 1930 Requested By: SAMREEN WOO; Order Number: [id number] Reading : Nicolasa Caballero; Measurements; Intervals [place]; Rate: 60 P: 61; WI: 234 QRS: 52; QRSD: 74 T: 46; QT: 423; QTc: 424; Interpretive Statements; SINUS RHYTHM WITH FIRST DEGREE AV BLOCK; POSSIBLE LEFT ATRIAL ENLARGEMENT; NONSPECIFIC T-WAVE ABNORMALITY; PRIOR ATRIAL FIBRILLATION 20:37; Electronically Signed On 10-15-2016 8:13:36 EST by Nicolasa Caballero; Outcome: 22:58 Decision to Hospitalize by Provider. le 10/15 12:11 Patient left the ED. kcs Signatures: Dispatcher [employer] EDMS Geovanny Whiteside MD MD pc Sleeman, Kacey, RN RN alyce Callejas, Jovana Delatorre, RN RN chase Aguirre, Ivettebeth, Furniture Crater Unit ml3 Tong Rhoades, RAILROAD FIRER RAILROAD FIRER kb5 Samreen Floyd, SALES REPRESENTATIVE UNIFORMS SALES REPRESENTATIVE UNIFORMS Akash Turner jc3 Corie Sawant, RAILROAD FIRER RAILROAD FIRER ar3 Jo Cooperb Juli, [place], RAILROAD FIRER RAILROAD FIRER prashanthn Lanette Gamble lr2 Leila Gonzalez,RN RN mv5 MTDD
--- NOTE | 2016-10-15 12:12 | EDDOCDS ---
Physician Documentation [facility] Name: Ariela Driscoll Age: 86 yrs Sex: Female : 1930 Arrival Date: 10/14/2016 Time: 19:53 Bed Admit Hold Private MD: Disposition: 10/14/16 22:58 Hospitalization ordered by Domingo Washington for Observation. Preliminary diagnosis are Lobar pneumonia, unspecified organism, Atrial fibrillation and flutter. - Bed requested for PCU. - Status is Observation. kcs - Condition is Stable. - Problem is new. - Symptoms are unchanged. Historical: - Allergies: no known allergies; - Home Meds: 1. mirtazapine 7.5 mg Oral tab once daily 2. furosemide 10 mg tab oral tab every Fri/Fri/Fri 3. amlodipine 10 mg Oral tab 1 tab once daily 4. atenolol 12.5 mg tab Oral tab once daily 5. bisacodyl 10 mg Rectal supp 1 suppository as needed 6. acetaminophen 325 mg Oral tab 2 tabs as needed - PMHx: breast cancer; CHF; Dementia; Depression; Gout; Hypertension; UTI; - PSHx: breast lumpectomy; Hysterectomy; - Social history: Smoking status: unknown if patient ever smoked tobacco. No barriers to communication noted, The patient speaks fluent Monegasque. - Family history: No immediate family members are acutely ill. - : The pt / caregiver states he / she is not on anticoagulants. Home medication list is obtained from PCP visit record. - Exposure Risk Screening:: None identified. Vital Signs: 10/14 19:58 Temp 103.5(TE); ar3 20:05 BP 152 / 77; Pulse 81; Resp 18; Temp 103.5(TE); Pulse Ox 92% on 3 lpm NC; Weight 88.77 lr2 kg / 195.7 lbs; Height 61 in. (154.94 cm); Pain 0/10; 20:37 Temp 101.1(R); mv5 20:44 BP 165 / 65; Pulse 85; Resp 18; Pulse Ox 94% 2 lpm ; mv5 21:18 BP 110 / 51 (auto/); mv5 21:18 Pulse 68 MON; Resp 16; Temp 99.8(TE); Pulse Ox 92% ; mv5 22:18 BP 131 / 61 (auto/); mv5 22:18 Pulse 72 MON; Pulse Ox 93% ; mv5 22:48 BP 138 / 65 (auto/); mv5 22:48 Pulse 58 MON; Pulse Ox 93% ; mv5 23:18 BP 136 / 60 (auto/); mv5 23:18 Pulse 60 MON; Pulse Ox 93% ; mv5 23:48 BP 132 / 63 (auto/); mv5 23:48 Pulse 58 MON; Pulse Ox 94% ; mv5 10/15 00:03 BP 103 / 55 (auto/); sep 00:04 Pulse 122 MON; Pulse Ox 98% ; sep 00:18 BP 98 / 57 (auto/); sep 00:19 Pulse 119 MON; Pulse Ox 98% ; sep 00:33 BP 94 / 51 (auto/); sep 00:34 Pulse 117 MON; Pulse Ox 99% ; sep 00:48 BP 100 / 57 (auto/); sep 00:48 Pulse 116 MON; Pulse Ox 95% ; sep 02 20:05 Body Mass Index 36.98 (88.77 kg, 154.94 cm) lr2 MDM: 10/14 20:06 Vital Signs ordered. le 20:06 Misc Project Engineer Order ordered. le 20:07 Misc Project Engineer Order complete. ml3 20:08 Chest, 2 View (pa\E\lat) Ordered. EDMS 20:08 -Blood Culture (Adults Only), peripheral from different site, or from device/port/PICC le etc. if present ordered. 20:08 Call Respiratory ordered. le 20:08 General Internal Medicine Physician/Pulse Ox/q 15 min VS ordered. le 20:08 Straight cath ordered. le 20:08 Rectal Temp ordered. le 20:08 Acetaminophen Tablet 650 mg PO once ordered. le 20:09 RESPIRATORY PANEL Ordered. EDMS 20:10 -Arterial Blood Gas Ordered. EDMS 20:10 C Reactive Protein Ordered. EDMS 20:10 CBC with Diff Ordered. EDMS 20:10 Lactic Acid (Suarez tube on ice) Ordered. EDMS 20:10 Liver Profile Ordered. EDMS 20:10 MED Profile Ordered. EDMS 20:10 PT/INR Ordered. EDMS 20:10 PTT Ordered. EDMS 20:10 Urinalysis Ordered. EDMS 20:10 -Blood Culture Ordered. EDMS 20:10 Urine Culture Ordered. EDMS 20:17 Call Respiratory complete. ml3 20:18 -Blood Culture (Adults Only), peripheral from different site, or from device/port/PICC ml3 etc. if present complete. 20:19 BLOOD CULTURES Ordered. EDMS 20:23 Aspirin 325 mg PO once ordered. le 20:23 ECG WITH READING ER PHYS+CARDIAG ordered. EDMS 21:14 Financial registration complete. gjb 22:12 [facility] Payment Agreement was scanned into [employer] and attached to record. gjb 22:23 RESPIRATORY PANEL Reviewed. le 22:23 -Arterial Blood Gas Reviewed. le 22:23 C Reactive Protein Reviewed. le 22:23 CBC with Diff Reviewed. le 22:23 Liver Profile Reviewed. le 22:23 MED Profile Reviewed. le 22:23 Urinalysis Reviewed. le 22:23 Lactic Acid (Suarez tube on ice) Reviewed. le 22:23 PT/INR Reviewed. le 22:23 PTT Reviewed. le 22:29 BED REQUEST+ADM ordered. EDMS 22:30 levofloxacin 750 mg IVPB once over 90 mins ordered. le 23:44 ECG WITH READING ER PHYS+CARDIAG ordered. EDMS 02/ 00:22 PHYSICAL THERAPY EVAL & TREAT ordered. EDMS 00:22 Admission / Observation Status ordered. EDMS 00:23 ECHOCARD,DOPPLER/COLOR FLOW ordered. EDMS 00:23 CONSISTENT CARBOHYDRATES ordered. EDMS 00:23 BASIC METABOLIC PROFILE Ordered. EDMS 00:23 COMPLETE BLOOD COUNT Ordered. EDMS 00:23 TROPONIN Ordered. EDMS 00:23 TROPONIN Ordered. EDMS 00:23 THYROID STIMULATING HORMONE Ordered. EDMS 01:19 SPUTUM CULTURE AND GRAM STAIN Ordered. EDMS 01:24 ELECTROCARDIOGRAM ADULT ordered. EDMS 06:49 TROPONIN Ordered. EDMS 06:49 VANCOMYCIN RANDOM Ordered. EDMS Administered Medications: 10/14 20:44 Drug: Acetaminophen 650 mg [acetaminophen 325 mg tablet (2 tabs)] Route: PO; mv5 21:16 Follow up: Response: No Adverse Reaction mv5 20:44 Drug: Aspirin 325 mg [aspirin 325 mg tablet (1 tabs)] Route: PO; mv5 21:15 Follow up: Response: No Adverse Reaction mv5 22:54 Drug: levofloxacin 750 mg [levofloxacin 750 mg/150 mL in 5 % dextrose intravenous mv5 piggyback] Route: IVPB; Infused Over: 90 mins; Site: left antecubital; Signatures: Dispatcher [employer] Pilar Ospina, RN RN [facility] Aj Aguirre, Dry Mill Operator Unit ml3 Samreen Floyd, Jo Dove Megan,RN RN mv5 The chart was reviewed and I authenticate all verbal orders and agree with the evaluation and treatment provided.Corrections: (The following items were deleted from the chart) 10/15 06:51 00:23 TROPONIN ordered. EDMS EDMS 06:51 01:45 VANCOMYCIN RANDOM ordered. EDMS EDMS Attachments: 10/14 22:12 [facility] Payment Agreement [email or web address] MTDD
[2016-10-15] MEDS: IPRATROPIUM 0.5MG/ALBUTEROL 2.5MG INH SOL UD 3ML (DUONEB)(J7620) NEB SCH ×2 (14:00→21:13)
[2016-10-15] MEDS: IPRATROPIUM 0.5MG/ALBUTEROL 2.5MG INH SOL UD 3ML (DUONEB)(J7620) NEB PRN (16:03)
[2016-10-15] MEDS: FEBUXOSTAT 40 MG TABLET (ULORIC) PO SCH (18:00)
[2016-10-15] MEDS: MIRTAZAPINE 7.5MG PER 1/2 TABLET PO SCH (21:00)
[2016-10-16] MEDS: IPRATROPIUM 0.5MG/ALBUTEROL 2.5MG INH SOL UD 3ML (DUONEB)(J7620) NEB SCH ×4 (01:47→23:58)
[2016-10-16 04:03] VITALS: BP 135/60
[2016-10-16] MEDS: IPRATROPIUM 0.5MG/ALBUTEROL 2.5MG INH SOL UD 3ML (DUONEB)(J7620) NEB PRN (04:19)
[2016-10-16] MEDS: PIPERACILLIN/TAZOBACTAM SOD 2.25 GM in D5W MINI-BAG PLUS 50 ML IV SCH ×3 (04:22→20:51)
[2016-10-16 05:45] LABS: MEAN CORPUSCULAR HEMOGLOBIN 30.8 pg (27.0-33.0); MEAN CORPUSCULAR HGB CONC 32.5 g/dl (32.0-36.5); MEAN CORPUSCULAR VOLUME 94.8 fl (80.0-96.0); RED CELL DISTRIBUTION WIDTH 12.3 % (11.5-14.5); WHITE BLOOD COUNT 11.8 K/mm3 (4.0-10.0)
[2016-10-16 05:47] LABS: CALCIUM LEVEL 8.2 MG/DL (8.8-10.2); CREATININE FOR GFR 2.33 MG/DL (0.55-1.02); VANCOMYCIN RANDOM 10.3 UG/ML
--- NOTE | 2016-10-16 05:47 | ECHO ---
DATE OF PROCEDURE: 10/15/2016 DATE OF : 1930 AGE: 86 REFERRING PROVIDER: Dr. Domingo Washington. PATIENT LOCATION: Room 3222. REASON FOR ECHOCARDIOGRAM: Abnormal EKG. 2D MEASUREMENTS: IVS: 1.0 cm LVPW: 1.1 cm LV: 3.8 cm Aorta: 2.5 cm LA: 3.5 cm IVC: 1.9 cm DOPPLER MEASUREMENTS: Peak velocity across the aortic valve: 1.9 m/s Peak velocity across the LVOT: 1.4 m/s Mitral E: 1.3 Mitral A: 0.85 Ratio 1.5 Maximum tricuspid valve velocity: 2.4 m/s 2D COMMENTS: 1. Normal left ventricular size, wall thickness and normal global left ventricular systolic function. Left ventricular systolic ejection fraction is estimated at 65% to 70%. 2. Normal left atrium. Normal right atrium and right ventricle. 3. The atrial septum appeared to be normal without evidence of defect or shunt. 4. Normal aortic root. 5. No pericardial effusion seen. 6. Minimally calcified aortic valve with normal leaflet excursion. Mildly calcified mitral annulus with normal anterior mitral valve leaflet motion. Normal tricuspid valve. The pulmonic valve was not well visualized. 7. The inferior vena cava was normal in size, central venous pressure is probably normal. DOPPLER: It detects mild aortic regurgitation, trace mitral regurgitation and trace to mild tricuspid regurgitation. The calculated pulmonary artery systolic pressure varies between 30 to 40 mmHg. Assessment of the left ventricular diastolic function appeared to be normal. IMPRESSION: 1. Normal global left ventricular systolic function with a hyperdynamic left ventricle. Left ventricular diastolic function also appeared to be normal. 2. Aortic valve sclerosis with mild aortic regurgitation and trivial aortic stenosis. 3. Mitral annulus calcification with trace mitral regurgitation. 4. Trace to mild tricuspid regurgitation with mild pulmonary hypertension. 5. This was compared with last echocardiogram on 10/17/2015, no remarkable changes. [facility]
[2016-10-16] MEDS: NYSTATIN 100,000 UNITS/GM TOPICAL PWD 15 GM TOP SCH ×3 (06:00→21:00)
[2016-10-16] MEDS: HEPARIN SOD (PORCINE) 5000 UNITS/ML VIAL SC SCH ×3 (06:10→23:18)
[2016-10-16] MEDS: ONDANSETRON 4MG/2ML VIAL (J2405) IV PRN ×2 (06:36→17:54)
[2016-10-16 07:30] VITALS: BP 151/71
[2016-10-16] MEDS ORDERED: VANCOMYCIN HCL 1,000 MG, VIAL MATE ADAPTER 1 EACH in D5W 250 ML IV ONE (09:00)
[2016-10-16] MEDS ORDERED: FUROSEMIDE 20 MG TAB PO SCH (09:00)
[2016-10-16 12:00] VITALS: BP 132/64
--- NOTE | 2016-10-16 12:21 | PHACANCOPD ---
PHARMACY VANCOMYCIN DOSING Pt Demographics Demographics Patient Age:86 , Weight:87.700 , Gender: female Adjusted Body Weight Date: 10/15/16, Adjusted Body Weight: [64.3] Kg Vancomycin Vancomycin Target Ranges: 15-20 mcg/ml Vancomycin Load Y/N: Yes Load Dose Date Time Vancomycin Load Dose: 1000MG Date: 10-15 Time: 0200 Vancomycin Dose Date: 10/15/16. Current Vancomycin Dose: Intermittent Dosing?: Yes Labs Micro Microbiology 10/14/16 Blood Culture - Preliminary, Resulted No growth after 24 hours . All specim... 10/14/16 Blood Culture - Preliminary, Resulted No growth after 24 hours . All specim... 10/14/16 Respiratory Virus Panel (PCR) (LATONYA) - Final, Complete 10/14/16 Urine Culture, Received Pending Creatinine Clearance Date:10/15/16. Creatinine Clearance: [14]. Pending Labs random 10-15 in am Assessment and Plan Maintaining Current Dose?: Yes Reason for dose change: No Dose Change Pharmacist Note Pharmacist Note 10/16/16: Random level today resulted @ 10.3. I have scheduled a one time vancomycin 1g dose to be given this morning at 0900. WBC remains elevated, and the patient has been febrile in the past 24 hours. Cultures are still pending. Another random level is scheduled for tomorrow morning, 10/17/16 @ 0500. We will continue to monitor and make further dose adjustments accordingly. Date: 10/15/16. Pharmacist note:Dosed intermittent per levels. First random am of 2-14. Will continue to monitor and make adjustments as needed. JOLENE MAHARAJ PHARMACY Oct 16, 2016 12:21
--- NOTE | 2016-10-16 12:22 | REP ---
Clinical: Hypoxia. Technique: AP and lateral views. Comparison: 10/14/2016. Findings: Indistinct pulmonary vasculature with cephalization and increased markings suggests CHF and pulmonary vascular congestion with interstitial edema. Left lower lobe consolidation is also appreciated. Layering effusions cannot be excluded. No pneumothorax. Skeletal structures intact. Impression: Findings suggesting pulmonary vascular congestion and interstitial edema with left lower lobe consolidation and possible small layering effusions. Signed by Jeff Goodwin MD 10/16/2016 12:14 P
[2016-10-16] MEDS: amLODIPine 10 MG TAB PO SCH (13:25)
[2016-10-16 16:15] VITALS: BP 143/77
[2016-10-16] MEDS: FEBUXOSTAT 40 MG TABLET (ULORIC) PO SCH (17:54)
[2016-10-16 20:00] VITALS: BP 139/65
[2016-10-16] MEDS: MIRTAZAPINE 7.5MG PER 1/2 TABLET PO SCH (20:51)
[2016-10-16] MEDS: ACETAMINOPHEN TAB 650MG DOSE (2X325MG) PO PRN (23:17)
[2016-10-16 23:59] VITALS: BP 149/59
[2016-10-17] VITALS (7 sets, daily range): BP systolic 145–180; BP diastolic 67–106; O2SAT 96
[2016-10-17] MEDS: IPRATROPIUM 0.5MG/ALBUTEROL 2.5MG INH SOL UD 3ML (DUONEB)(J7620) NEB SCH ×4 (02:00→21:21)
[2016-10-17] MEDS: PIPERACILLIN/TAZOBACTAM SOD 2.25 GM in D5W MINI-BAG PLUS 50 ML IV SCH ×3 (03:34→21:05)
[2016-10-17] MEDS: ACETAMINOPHEN TAB 650MG DOSE (2X325MG) PO PRN ×4 (03:36→21:04)
[2016-10-17 06:03] LABS: MEAN CORPUSCULAR HEMOGLOBIN 30.9 pg (27.0-33.0); MEAN CORPUSCULAR HGB CONC 33.2 g/dl (32.0-36.5); MEAN CORPUSCULAR VOLUME 93.3 fl (80.0-96.0); RED CELL DISTRIBUTION WIDTH 12.1 % (11.5-14.5); WHITE BLOOD COUNT 10.5 K/mm3 (4.0-10.0)
[2016-10-17 06:25] LABS: CALCIUM LEVEL 8.3 MG/DL (8.8-10.2); CREATININE FOR GFR 2.23 MG/DL (0.55-1.02); GLOMERULAR FILTRATION RATE 22.1 (>32); POTASSIUM SERUM 3.8 MEQ/L (3.5-5.1); VANCOMYCIN RANDOM 16.5 UG/ML
[2016-10-17] MEDS: APIXABAN 2.5 MG TAB (ELIQUIS) PO SCH ×2 (08:22→21:04)
[2016-10-17] MEDS: amLODIPine 10 MG TAB PO SCH (08:22)
[2016-10-17] MEDS: FUROSEMIDE 20 MG/2 ML VIAL (J1940) IV SCH (08:23)
[2016-10-17] MEDS: NYSTATIN 100,000 UNITS/GM TOPICAL PWD 15 GM TOP SCH ×2 (08:23→21:04)
[2016-10-17] MEDS: ONDANSETRON 4MG/2ML VIAL (J2405) IV PRN (08:24)
--- NOTE | 2016-10-17 09:07 | ECGEPIP ---
Stationary ECG Study [facility] Test Date: 2016-10-16 Pat Name: KELLY FIGUEROA Department: Room: [place] [address] Gender: [place] Road[place] Supervisor: EAMON : 1930 Requested By: JHON MONTANO Order Number: [id number] Reading MD: Chandan Dobbins Measurements Intervals [place] Rate: 93 P: AR: 0 QRS: 111 QRSD: 120 T: -55 QT: 306 QTc: 381 Interpretive Statements Incorrect limb lead placement. Atrial fibrillation with controlled ventricular response. Slow precordial R-wave progression, incomplete RBBB, and Persistent S waves in V5 and V6 Body habitus versus pulmonary disease Nonspecific ST/T-wave abnormalities Rhythm change from 10/15/16 Electronically Signed On 10-17-2016 9:07:17 EST by Chandan Dobbins
--- NOTE | 2016-10-17 10:06 | PHACANCOPD ---
PHARMACY VANCOMYCIN DOSING Pt Demographics Demographics Patient Age:86 , Weight:89.000 , Gender: female Adjusted Body Weight Date: 10/15/16, Adjusted Body Weight: [64.3] Kg Events Past 24 Hours Events Past 24 Hours: NO: Change in CrCl, Dialysis, Diuretic Therapy, Elevation in WBC, Fever, Other, Pending Diagnostics, Pending Procedures Vancomycin Vancomycin Target Ranges: 15-20 mcg/ml Vancomycin Load Y/N: Yes Load Dose Date Time Vancomycin Load Dose: 1000MG Date: 10-15 Time: 0200 Vancomycin Dose Date: 10/17/16. Current Vancomycin Dose: [750MG IV Q24H @ 1000] Date: 10/15/16. Current Vancomycin Dose: Intermittent Dosing?: No Labs Labs Item Value Date Time White Blood Count 7.9 K/mm3 10/15/16 0655 White Blood Count 11.8 K/mm3 H 10/16/16 0504 White Blood Count 10.5 K/mm3 H 10/17/16 0551 Creatinine 2.19 MG/DL H 10/15/16 0655 Creatinine 2.33 MG/DL H 10/16/16 0504 Creatinine 2.23 MG/DL H 10/17/16 0551 Random Vancomycin Level 10.3 UG/ML 10/16/16 0504 Random Vancomycin Level 16.5 UG/ML 10/17/16 0551 Micro Microbiology 10/14/16 Blood Culture - Preliminary, Resulted No Growth after 48 hours. All Specime... 10/14/16 Blood Culture - Preliminary, Resulted No Growth after 48 hours. All Specime... 10/14/16 Respiratory Virus Panel (PCR) (LATONYA) - Final, Complete 10/14/16 Urine Culture - Final, Complete Creatinine Clearance Date:10/15/16. Creatinine Clearance: [14]. Pending Labs VANCO TROUGH 10/18/16 @ 0900 Assessment and Plan Maintaining Current Dose?: No Reason for dose change: Other Pharmacist Note Pharmacist Note Date: 10/17/16: [Vanco random returned @ 16.5. Random was drawn 20 hours post 1 gram dose. Vanco 750mg iv [id number] is scheduled to start @ 1000. Vanco trough is scheduled to be drawn 10/18/16 @0900. Continue to monitor renal function and adjust dose as needed. Cultures are still pending] 10/16/16: Random level today resulted @ 10.3. I have scheduled a one time vancomycin 1g dose to be given this morning at 0900. WBC remains elevated, and the patient has been febrile in the past 24 hours. Cultures are still pending. Another random level is scheduled for tomorrow morning, 10/17/16 @ 0500. We will continue to monitor and make further dose adjustments accordingly. Date: 10/15/16. Pharmacist note:Dosed intermittent per levels. First random am of 2-14. Will continue to monitor and make adjustments as needed. GEORGE GERARDO PHARMACY Oct 17, 2016 10:06
[2016-10-17] MEDS: VANCOMYCIN HCL 750 MG, VIAL MATE ADAPTER 1 EACH in D5W 250 ML IV SCH (11:31)
--- NOTE | 2016-10-17 13:12 | EDDOCDS ---
Physician Documentation [facility] Name: Ariela Driscoll Age: 86 yrs Sex: Female : 1930 Arrival Date: 10/14/2016 Time: 19:53 Bed Admit Hold Private MD: Disposition: 10/14/16 22:58 Hospitalization ordered by Domingo Washington for Observation. Preliminary diagnosis are Lobar pneumonia, unspecified organism, Atrial fibrillation and flutter. - Bed requested for PCU. - Status is Observation. kcs - Condition is Stable. - Problem is new. - Symptoms are unchanged. Historical: - Allergies: no known allergies; - Home Meds: 1. mirtazapine 7.5 mg Oral tab once daily 2. furosemide 10 mg tab oral tab every Fri/Fri/Fri 3. amlodipine 10 mg Oral tab 1 tab once daily 4. atenolol 12.5 mg tab Oral tab once daily 5. bisacodyl 10 mg Rectal supp 1 suppository as needed 6. acetaminophen 325 mg Oral tab 2 tabs as needed - PMHx: breast cancer; CHF; Dementia; Depression; Gout; Hypertension; UTI; - PSHx: breast lumpectomy; Hysterectomy; - Social history: Smoking status: unknown if patient ever smoked tobacco. No barriers to communication noted, The patient speaks fluent Kenyan. - Family history: No immediate family members are acutely ill. - : The pt / caregiver states he / she is not on anticoagulants. Home medication list is obtained from PCP visit record. - Exposure Risk Screening:: None identified. Vital Signs: 10/14 19:58 Temp 103.5(TE); ar3 20:05 BP 152 / 77; Pulse 81; Resp 18; Temp 103.5(TE); Pulse Ox 92% on 3 lpm NC; Weight 88.77 lr2 kg / 195.7 lbs; Height 61 in. (154.94 cm); Pain 0/10; 20:37 Temp 101.1(R); mv5 20:44 BP 165 / 65; Pulse 85; Resp 18; Pulse Ox 94% 2 lpm ; mv5 21:18 BP 110 / 51 (auto/); mv5 21:18 Pulse 68 MON; Resp 16; Temp 99.8(TE); Pulse Ox 92% ; mv5 22:18 BP 131 / 61 (auto/); mv5 22:18 Pulse 72 MON; Pulse Ox 93% ; mv5 22:48 BP 138 / 65 (auto/); mv5 22:48 Pulse 58 MON; Pulse Ox 93% ; mv5 23:18 BP 136 / 60 (auto/); mv5 23:18 Pulse 60 MON; Pulse Ox 93% ; mv5 23:48 BP 132 / 63 (auto/); mv5 23:48 Pulse 58 MON; Pulse Ox 94% ; mv5 10/15 00:03 BP 103 / 55 (auto/); sep 00:04 Pulse 122 MON; Pulse Ox 98% ; sep 00:18 BP 98 / 57 (auto/); sep 00:19 Pulse 119 MON; Pulse Ox 98% ; sep 00:33 BP 94 / 51 (auto/); sep 00:34 Pulse 117 MON; Pulse Ox 99% ; sep 00:48 BP 100 / 57 (auto/); sep 00:48 Pulse 116 MON; Pulse Ox 95% ; sep 02 20:05 Body Mass Index 36.98 (88.77 kg, 154.94 cm) lr2 MDM: 10/14 20:06 Vital Signs ordered. le 20:06 Misc Bowl Topper Order ordered. le 20:07 Misc Bowl Topper Order complete. ml3 20:08 Chest, 2 View (pa\E\lat) Ordered. EDMS 20:08 -Blood Culture (Adults Only), peripheral from different site, or from device/port/PICC le etc. if present ordered. 20:08 Call Respiratory ordered. le 20:08 Bin Cleaner/Pulse Ox/q 15 min VS ordered. le 20:08 Straight cath ordered. le 20:08 Rectal Temp ordered. le 20:08 Acetaminophen Tablet 650 mg PO once ordered. le 20:09 RESPIRATORY PANEL Ordered. EDMS 20:10 -Arterial Blood Gas Ordered. EDMS 20:10 C Reactive Protein Ordered. EDMS 20:10 CBC with Diff Ordered. EDMS 20:10 Lactic Acid (Suarez tube on ice) Ordered. EDMS 20:10 Liver Profile Ordered. EDMS 20:10 MED Profile Ordered. EDMS 20:10 PT/INR Ordered. EDMS 20:10 PTT Ordered. EDMS 20:10 Urinalysis Ordered. EDMS 20:10 -Blood Culture Ordered. EDMS 20:10 Urine Culture Ordered. EDMS 20:17 Call Respiratory complete. ml3 20:18 -Blood Culture (Adults Only), peripheral from different site, or from device/port/PICC ml3 etc. if present complete. 20:19 BLOOD CULTURES Ordered. EDMS 20:23 Aspirin 325 mg PO once ordered. le 20:23 ECG WITH READING ER PHYS+CARDIAG ordered. EDMS 21:14 Financial registration complete. gjb 22:12 [facility] Payment Agreement was scanned into [employer] and attached to record. gjb 22:23 RESPIRATORY PANEL Reviewed. le 22:23 -Arterial Blood Gas Reviewed. le 22:23 C Reactive Protein Reviewed. le 22:23 CBC with Diff Reviewed. le 22:23 Liver Profile Reviewed. le 22:23 MED Profile Reviewed. le 22:23 Urinalysis Reviewed. le 22:23 Lactic Acid (Suarez tube on ice) Reviewed. le 22:23 PT/INR Reviewed. le 22:23 PTT Reviewed. le 22:29 BED REQUEST+ADM ordered. EDMS 22:30 levofloxacin 750 mg IVPB once over 90 mins ordered. le 23:44 ECG WITH READING ER PHYS+CARDIAG ordered. EDMS 02 00:22 PHYSICAL THERAPY EVAL & TREAT ordered. EDMS 00:22 Admission / Observation Status ordered. EDMS 00:23 ECHOCARD,DOPPLER/COLOR FLOW ordered. EDMS 00:23 CONSISTENT CARBOHYDRATES ordered. EDMS 00:23 BASIC METABOLIC PROFILE Ordered. EDMS 00:23 COMPLETE BLOOD COUNT Ordered. EDMS 00:23 TROPONIN Ordered. EDMS 00:23 TROPONIN Ordered. EDMS 00:23 THYROID STIMULATING HORMONE Ordered. EDMS 01:19 SPUTUM CULTURE AND GRAM STAIN Ordered. EDMS 01:24 ELECTROCARDIOGRAM ADULT ordered. EDMS 06:49 TROPONIN Ordered. EDMS 06:49 VANCOMYCIN RANDOM Ordered. EDMS 10/16 14:35 T-Sheet-- Draft Copy was scanned into [employer] and attached to record. gb 14:36 ECG/EKG was scanned into [employer] and attached to record. gb Administered Medications: 10/14 20:44 Drug: Acetaminophen 650 mg [acetaminophen 325 mg tablet (2 tabs)] Route: PO; mv5 21:16 Follow up: Response: No Adverse Reaction mv5 20:44 Drug: Aspirin 325 mg [aspirin 325 mg tablet (1 tabs)] Route: PO; mv5 21:15 Follow up: Response: No Adverse Reaction mv5 22:54 Drug: levofloxacin 750 mg [levofloxacin 750 mg/150 mL in 5 % dextrose intravenous mv5 piggyback] Route: IVPB; Infused Over: 90 mins; Site: left antecubital; Signatures: Dispatcher [employer] Pilar Ospina, RN RN Inna Crouch, Reg Reg gb Timothy, Aj, Women'S Activities Adviser Unit ml3 Samreen Floyd, RIPSAWYER RIPSAWYERJo Palmer Megan, RN RN mv5 The chart was reviewed and I authenticate all verbal orders and agree with the evaluation and treatment provided.Corrections: (The following items were deleted from the chart) 10/15 06:51 00:23 TROPONIN ordered. EDMS EDMS 06:51 01:45 VANCOMYCIN RANDOM ordered. EDMS EDMS Attachments: 10/14 22:12 [facility] Payment Agreement [facility] 10/16 14:35 T-Sheet-- Draft Copy gb 14:36 ECG/EKG Chart Complete MTDD
--- NOTE | 2016-10-17 13:12 | EDDOCDS ---
Nurse's Notes [facility] Name: Ariela Driscoll Age: 86 yrs Sex: Female : 1930 Arrival Date: 10/14/2016 Time: 19:53 Bed Admit Hold Private MD: Diagnosis: Lobar pneumonia, unspecified organism;Atrial fibrillation and flutter Presentation: 10/14 20:02 Presenting complaint: EMS states: Pt to ED from assisted living facility for evaluation mv5 of "respiratory distress", EMS reported no respiratory distress observed upon arrival, RA 02 sat 88%, improved with 2LNC. Pt had episode of vomiting when moved from bed to stretcher per EMS. Pt warm to touch. Pt confused at baseline, arrives awake and alert, MESSINA. Adult Sepsis Screening: The patient does not have new or worsening altered mentation. Patient's respiratory rate is less than 22. Systolic blood pressure is greater than 100. Patient has a qSOFA score of 0- Negative Sepsis Screen. Suicide/Homicide risk assessment- the patient denies having any suicidal and/or homicidal ideations and does not present with any other emotional, behavioral or mental health complaints. Status: Patient is not a service order dispatcher chief or dependent. Transition of care: patient was received from [facility]-assisted. 20:02 Acuity: ASHWINI Level 3 mv5 20:02 Method Of Arrival: Ambulance mv5 Triage Assessment: 20:11 General: Appears in no apparent distress. Pain: Denies pain. The patient is triaged at mv5 the bedside. See Assessment in Nurses Notes section of ED record. Neurological: Level of Consciousness is awake, alert, Oriented to person. Cardiovascular: Capillary refill < 3 seconds Heart tones S1 S2 present. Respiratory: Airway is patent Respiratory effort is even, unlabored, Respiratory pattern is regular, symmetrical. Derm: Skin is pink, warm & dry. Historical: - Allergies: no known allergies; - Home Meds: 1. mirtazapine 7.5 mg Oral tab once daily 2. furosemide 10 mg tab oral tab every Mon/Wed/Fri 3. amlodipine 10 mg Oral tab 1 tab once daily 4. atenolol 12.5 mg tab Oral tab once daily 5. bisacodyl 10 mg Rectal supp 1 suppository as needed 6. acetaminophen 325 mg Oral tab 2 tabs as needed - PMHx: breast cancer; CHF; Dementia; Depression; Gout; Hypertension; UTI; - PSHx: breast lumpectomy; Hysterectomy; - Social history: Smoking status: unknown if patient ever smoked tobacco. No barriers to communication noted, The patient speaks fluent Ugandan. - Family history: No immediate family members are acutely ill. - : The pt / caregiver states he / she is not on anticoagulants. Home medication list is obtained from PCP visit record. - Exposure Risk Screening:: None identified. Assessment: 20:13 General: See triage assessment.. mv5 20:44 General: Appears in no apparent distress, comfortable, well nourished, well groomed, mv5 Behavior is cooperative, pleasant. Pain: Denies pain. Neurological: Oriented to person. Cardiovascular: Rhythm is atrial flutter variable. Respiratory: Airway is patent Respiratory effort is even, unlabored, Respiratory pattern is regular, symmetrical, Breath sounds are diminished in left posterior lower lobe, right posterior middle lobe and right posterior lower lobe. GI: No deficits noted. : Straight cath completed, pt tolerated well. Small amount of clear yellow urine obtained. Urine is clear, wears incontinence brief. Derm: Skin is pink, warm & dry. 21:20 General: Appears in no apparent distress, to be sleeping. Pain: Denies pain. mv5 Cardiovascular: Rhythm is irregular. Respiratory: Airway is patent Respiratory effort is even, unlabored, Respiratory pattern is regular, symmetrical. Derm: Skin is pink, warm & dry. 22:40 General: Appears in no apparent distress, well nourished, Behavior is cooperative. mv5 Neurological: Level of Consciousness is Oriented to person, Pt wakes to verbal stim.. Cardiovascular: Rhythm is atrial flutter. Respiratory: Airway is patent Respiratory effort is even, unlabored, Respiratory pattern is regular, symmetrical, Derm: Skin is pink, warm & dry. 23:21 General: Appears in no apparent distress, comfortable, Behavior is cooperative, mv5 pleasant. Pain: Location: left quadriceps and left knee Pain currently is 4 out of 10 on a pain scale. Pain does not radiate. Pain began Family reports hx of leg pain r/t arthritis. Pt treats with Tylenol, pt administered Tylenol previously. Will continue to monitor. Cardiovascular: Rhythm is sinus rhythm No ectopy. Derm: Skin is pink, warm & dry. 10/15 00:11 General: Appears in no apparent distress, Pt assisted to reposition in bed.. mv5 Cardiovascular: Rhythm is sinus rhythm No ectopy. Respiratory: Airway is patent Respiratory effort is even, unlabored, Respiratory pattern is regular, symmetrical. Derm: Skin is pink, warm & dry. 02:23 Cardiovascular: Rhythm is atrial fibrillation. sep 06:26 Cardiovascular: Rhythm is atrial fibrillation Other afib with jorge arrythmia. sep Vital Signs: 10/14 19:58 Temp 103.5(TE); ar3 20:05 BP 152 / 77; Pulse 81; Resp 18; Temp 103.5(TE); Pulse Ox 92% on 3 lpm NC; Weight 88.77 lr2 kg; Height 61 in. (154.94 cm); Pain 0/10; 20:37 Temp 101.1(R); mv5 20:44 BP 165 / 65; Pulse 85; Resp 18; Pulse Ox 94% 2 lpm ; mv5 21:18 BP 110 / 51 (auto/); mv5 21:18 Pulse 68 MON; Resp 16; Temp 99.8(TE); Pulse Ox 92% ; mv5 22:18 BP 131 / 61 (auto/); mv5 22:18 Pulse 72 MON; Pulse Ox 93% ; mv5 22:48 BP 138 / 65 (auto/); mv5 22:48 Pulse 58 MON; Pulse Ox 93% ; mv5 23:18 BP 136 / 60 (auto/); mv5 23:18 Pulse 60 MON; Pulse Ox 93% ; mv5 23:48 BP 132 / 63 (auto/); mv5 23:48 Pulse 58 MON; Pulse Ox 94% ; mv5 10/15 00:03 BP 103 / 55 (auto/); sep 00:04 Pulse 122 MON; Pulse Ox 98% ; sep 00:18 BP 98 / 57 (auto/); sep 00:19 Pulse 119 MON; Pulse Ox 98% ; sep 00:33 BP 94 / 51 (auto/); sep 00:34 Pulse 117 MON; Pulse Ox 99% ; sep 00:48 BP 100 / 57 (auto/); sep 00:48 Pulse 116 MON; Pulse Ox 95% ; sep 02 20:05 Body Mass Index 36.98 (88.77 kg, 154.94 cm) lr2 Vitals: 10/14 20:11 Log In Time N/A - ambulance arrival. mv5 ED Course: 19:57 Patient visited by Aj Aguirre, Duralumin Metalworker. ml3 19:57 Leila Gonzalez,RN is Primary Nurse. ml3 19:57 Patient moved to Waiting ml3 19:57 Patient moved to 7 ml3 19:58 Patient visited by Corie Sawant PCA. ar3 20:05 Samreen Floyd FNP is [facility]. le 20:05 Triage Initiated mv5 20:09 Patient visited by Samreen Floyd FNP. le 20:09 Patient visited by Samreen Floyd FNP. le 20:22 -Arterial Blood Gas Sent. jc3 20:35 BLOOD CULTURES Sent. mv5 20:35 -Blood Culture Sent. mv5 20:35 C Reactive Protein Sent. mv5 20:36 CBC with Diff Sent. mv5 20:36 Lactic Acid (Suarez tube on ice) Sent. mv5 20:36 Liver Profile Sent. mv5 20:36 MED Profile Sent. mv5 20:36 PT/INR Sent. mv5 20:36 PTT Sent. mv5 20:36 Urinalysis Sent. mv5 20:36 Urine Culture Sent. mv5 20:40 EKG done. (by ED staff). lr2 20:47 RESPIRATORY PANEL Sent. cln 20:50 Patient visited by Leila Gonzalez RN. mv5 21:20 Patient visited by Leila Gonzalez,DARSHAN. mv5 21:52 Patient visited by Leila Gonzalez,DARSHAN. mv5 22:12 [facility] Payment Agreement was scanned into [employer] and attached to record. gjb 22:15 Patient name changed from Ariela\\S\\\\S\\Americo\\S\\ to Ariela\\S\\Rhianna\\S\\[place]. EDMS 22:39 Patient visited by Leila Gonzalez,DARSHAN. mv5 22:41 Patient visited by Leila Gonzalez,DARSHAN. mv5 22:56 Domingo Washington is Hospitalizing Provider. le 10/15 00:28 Patient moved to Admit Hold sep 00:50 Aleisha Camarillo,DARSHAN is Primary Nurse. sep 00:50 Patient moved to 21 sep 00:53 Patient moved to Admit Hold ml3 01:01 Patient visited by oTng Rhoades PCA. kb5 01:01 EKG done. (by ED staff). Reviewed by Samreen WOO. kb5 03:18 Primary Nurse role handed off by Aleisha Camarillo,DARSHAN kb5 07:07 Geovanny Whiteside MD is Attending Physician. pc 07:12 Primary Nurse role handed off by Leila Gonzalez,DARSHAN mv5 08:06 Chest, 2 View (pa\\E\\lat) Returned. EDMS 08:40 EKG-ADULT Returned. EDMS 08:40 EKG-ADULT Returned. EDMS 10/16 14:35 T-Sheet-- Draft Copy was scanned into [employer]ume and attached to record. gb 14:36 ECG/EKG was scanned into [employer] and attached to record. gb Administered Medications: 10/14 20:44 Drug: Acetaminophen 650 mg [acetaminophen 325 mg tablet (2 tabs)] Route: PO; mv5 21:16 Follow up: Response: No Adverse Reaction mv5 20:44 Drug: Aspirin 325 mg [aspirin 325 mg tablet (1 tabs)] Route: PO; mv5 21:15 Follow up: Response: No Adverse Reaction mv5 22:54 Drug: levofloxacin 750 mg [levofloxacin 750 mg/150 mL in 5 % dextrose intravenous mv5 piggyback] Route: IVPB; Infused Over: 90 mins; Site: left antecubital; RT: 20:22 ABG's drawn from right radial artery pressure held for 5 minutes no bleeding noted jc3 pressure bandage applied specimen sent pt. tolerated well. Order Results: Lab Order: -Arterial Blood Gas; [facility] 10/14/16 20:18 Test: ABG pH (ARTERIAL); Value: 7.477; Range: 7.350-7.450; Abnormal: Above high normal; Units: UNITS; Status: F Test: ABG PARTIAL PRESSURE CO2; Value: 33.6; Range: 35.0-45.0; Abnormal: Below low normal; Units: mmHg; Status: F Test: ABG PARTIAL PRESSURE O2; Value: 67.8; Range: 75.0-100.0; Abnormal: Below low normal; Units: mmHg; Status: F Test: ABG TOTAL CO2; Value: 25.3; Range: 23.0-31.0; Units: MEQ/L; Status: F Test: ABG HCO3; Value: 24.3; Range: 22.0-26.0; Units: MEQ/L; Status: F Test: ABG BASE EXCESS; Value: 1.3; Range: -2.0-2.0; Status: F Test: ABG STANDARD HCO3; Value: 25.6; Range: 22.0-26.0; Units: MEQ/L; Status: F Test: ABG O2 SATURATION; Value: 94.7; Range: 95.0-99.0; Abnormal: Below low normal; Units: %; Status: F Test: ABG DEVICE; Value: NASAL ERICK; Status: F Lab Order: C Reactive Protein; SPEC'10/14/16 20:25 Test: C REACTIVE PROTEIN QUANTITATIV; Value: 7.89; Range: 0.00-0.30; Abnormal: Above high normal; Units: MG/DL; Status: F Lab Order: CBC with Diff; SPEC'10/14/16 20:25 Test: WHITE BLOOD COUNT; Value: 12.1; Range: 4.0-10.0; Abnormal: Above high normal; Units: K/mm3; Status: F Test: RED BLOOD COUNT; Value: 4.21; Range: 4.00-5.40; Units: M/mm3; Status: F Test: HEMOGLOBIN; Value: 12.9; Range: 12.0-16.0; Units: g/dl; Status: F Test: HEMATOCRIT; Value: 39.5; Range: 36.0-47.0; Units: %; Status: F Test: MEAN CORPUSCULAR VOLUME; Value: 93.9; Range: 80.0-96.0; Units: fl; Status: F Test: MEAN CORPUSCULAR HEMOGLOBIN; Value: 30.6; Range: 27.0-33.0; Units: pg; Status: F Test: MEAN CORPUSCULAR HGB CONC; Value: 32.6; Range: 32.0-36.5; Units: g/dl; Status: F Test: RED CELL DISTRIBUTION WIDTH; Value: 12.2; Range: 11.5-14.5; Units: %; Status: F Test: PLATELET COUNT, AUTOMATED; Value: 179; Range: 150-450; Units: k/mm3; Status: F Test: NEUTROPHILS %; Value: 89.0; Range: 36.0-66.0; Abnormal: Above high normal; Units: %; Status: F Test: LYMPH %; Value: 3.6; Range: 24.0-44.0; Abnormal: Below low normal; Units: %; Status: F Test: MONO %; Value: 4.8; Range: 0.0-5.0; Units: %; Status: F Test: EOS %; Value: 0.8; Range: 0.0-3.0; Units: %; Status: F Test: BASO %; Value: 0.2; Range: 0.0-1.0; Units: %; Status: F Test: LARGE UNSTAINED CELL %; Value: 1.6; Range: 0.0-4.0; Units: %; Status: F Test: NEUTROPHILS #; Value: 10.7; Range: 1.8-7.7; Abnormal: Above high normal; Units: K/mm3; Status: F Test: LYMPH #; Value: 0.6; Range: 1.5-4.5; Abnormal: Below low normal; Units: K/mm3; Status: F Test: MONO #; Value: 0.6; Range: 0.0-0.8; Units: K/mm3; Status: F Test: EOS #; Value: 0.1; Range: 0.0-0.50; Units: K/mm3; Status: F Test: BASO #; Value: 0.0; Range: 0.0-0.2; Units: K/mm3; Status: F Test: LARGE UNSTAINED CELL #; Value: 0.2; Range: 0.0-0.4; Units: K/mm3; Status: F Lab Order: Lactic Acid (Suarez tube on ice); SPEC'M 10/14/16 20:25 Test: LACTIC ACID SEPSIS PROTOCOL; Value: 1.5; Range: 0.4-2.0; Units: MMOL/L; Status: F Lab Order: Liver Profile; SPEC'10/14/16 20:25 Test: AST/SGOT; Value: 41; Range: 15-37; Abnormal: Above high normal; Units: U/L; Status: F Test: ALT/SGPT; Value: 18; Range: 12-78; Units: U/L; Status: F Test: ALKALINE PHOSPHATASE; Value: 75; Range: 45-117; Units: U/L; Status: F Test: BILIRUBIN,TOTAL; Value: 0.4; Range: 0.2-1.0; Units: MG/DL; Status: F Test: BILIRUBIN,DIRECT; Value: 0.2; Range: 0.0-0.2; Units: MG/DL; Status: F Test: TOTAL PROTEIN; Value: 6.5; Range: 6.4-8.2; Units: GM/DL; Status: F Test: ALBUMIN; Value: 3.0; Range: 3.2-5.2; Abnormal: Below low normal; Units: GM/DL; Status: F Test: ALBUMIN/GLOBULIN RATIO; Value: 0.86; Range: 1.00-1.93; Abnormal: Below low normal; Status: F Lab Order: MED Profile; [facility] 10/14/16 20:25 Test: GLUCOSE, FASTING; Value: 148; Range: 83-110; Abnormal: Above high normal; Units: MG/DL; Status: F Test: BLOOD UREA NITROGEN; Value: 43; Range: 7-18; Abnormal: Above high normal; Units: MG/DL; Status: F Test: CREATININE FOR GFR; Value: 2.18; Range: 0.55-1.02; Abnormal: Above high normal; Units: MG/DL; Status: F Test: GLOMERULAR FILTRATION RATE; Value: 22.7; Range: >32; Abnormal: Below low normal; Status: F Test: SODIUM LEVEL; Value: 142; Range: 136-145; Units: MEQ/L; Status: F Test: POTASSIUM SERUM; Value: 4.7; Range: 3.5-5.1; Units: MEQ/L; Status: F Test: CHLORIDE LEVEL; Value: 106; Range: 98-107; Units: MEQ/L; Status: F Test: CARBON DIOXIDE LEVEL; Value: 26; Range: 21-32; Units: MEQ/L; Status: F Test: ANION GAP; Value: 10; Range: 8-16; Units: MEQ/L; Status: F Test: CALCIUM LEVEL; Value: 8.2; Range: 8.8-10.2; Abnormal: Below low normal; Units: MG/DL; Status: F Test Note: ; Units are mL/min/1.73 m2 Chronic Kidney Disease Staging per NKF: Stage I & II GFR >=60 Normal to Mildly Decreased Stage III GFR 30-59 Moderately Decreased Stage IV GFR 15-29 Severely Decreased Stage V GFR <15 Very Little GFR Left ESRD GFR <15 on MANDREL MAKER Lab Order: PT/INR; [facility] 10/14/16 20:25 Test: PROTHROMBIN TIME; Value: 13.8; Range: 12.3-14.5; Units: SECONDS; Status: F Test: INR; Value: 1.05; Status: F Test Note: ; THERAPUTIC HUMAN INR VALUES INDICATIONS NORMAL RANGES PROPHYLAXIS/TREATMENT OF: VENOUS THROMBOSIS 2.0-3.0 PULMONARY EMBOLISM 2.0-3.0 PREVENTION OF SYSTEMIC EMBOLISM FROM: TISSUE HEART VALVES 2.0-3.0 ACUTE MYOCARDIAL INFARCTION 2.0-3.0 VALVULAR HEART DISEASE 2.0-3.0 ATRIAL FIBRILLATION 2.0-3.0 MECHANICAL VALVES(HIGH RISK) 2.5-3.5 RECURRENT MYOCARDIAL INFARCTION 2.5-3.5 Lab Order: PTT; [facility] 10/14/16 20:25 Test: PARTIAL THROMBOPLASTIN TIME; Value: 32.6; Range: 26.6-37.1; Units: SECONDS; Status: F Lab Order: Urinalysis; [facility] 10/14/16 20:35 Test: APPEARANCE, URINE; Value: CLOUDY; Range: CLEAR; Abnormal: Above high normal; Status: F Test: COLOR, URINE; Value: YELLOW; Range: YELLOW; Status: F Test: PH,URINE; Value: 5.0; Range: 5.0-9.0; Units: UNITS; Status: F Test: SPECIFIC GRAVITY URINE AUTO; Value: 1.013; Range: 1.002-1.035; Status: F Test: PROTEIN, URINE AUTO; Value: 1+; Range: NEGATIVE; Abnormal: Above high normal; Units: mg/dL; Status: F Test: GLUCOSE, URINE (UA) AUTO; Value: NEGATIVE; Range: NEGATIVE; Units: mg/dL; Status: F Test: KETONE, URINE AUTO; Value: NEGATIVE; Range: NEGATIVE; Units: mg/dL; Status: F Test: UROBILINOGEN, URINE AUTO; Value: 0.2; Range: 0.0-2.0; Units: mg/dL; Status: F Test: BILIRUBIN, URINE AUTO; Value: NEGATIVE; Range: NEGATIVE; Status: F Test: NITRITE, URINE AUTO; Value: NEGATIVE; Range: NEGATIVE; Status: F Test: LEUKOCYTE ESTERASE, URINE AUTO; Value: NEGATIVE; Range: NEGATIVE; Status: F Test: BLOOD, URINE BLOOD; Value: NEGATIVE; Range: NEGATIVE; Status: F Test: WBC, URINE AUTO; Value: 1; Range: 0-3; Units: /HPF; Status: F Test: RBC, URINE AUTO; Value: 1; Range: 0-3; Units: /HPF; Status: F Test: BACTERIA, URINE AUTO; Value: 1+; Range: NEGATIVE; Abnormal: Above high normal; Status: F Test: SQUAMOUS EPITHELIAL CELL UR AU; Value: 1; Range: 0-6; Units: /HPF; Status: F Test: HYALINE CAST, URINE AUTO; Value: 0; Range: 0-1; Units: /LPF; Status: F Test: AMORPHOUS SEDIMENT; Value: MODERATE; Range: NEGATIVE; Abnormal: Above high normal; Status: F Lab Order: RESPIRATORY PANEL; SPEC'M 10/14/16 20:42 Test: RESPIRATORY PANEL; Value: RP PANEL RESULT NEGATIVE by PCR; Status: F Test: RESPIRATORY PANEL; Value: Comments:; Status: F Test Note: ; This respiratory PCR panel detects Influenza A H1, H3 and 2009 H1 viruses, Influenza B virus, Respiratory syncytial virus, Human metapneumovirus, Parainfluenza virus 1, 2, 3 and 4, Adenovirus, Rhinovirus/Enterovirus, Coronavirus HKU1, NL63, OC43 and 229E, Bordetella pertussis, Mycoplasma pneumoniae and Chlamydia pneumoniae. Lab Order: BASIC METABOLIC PROFILE; SPEC'M 10/15/16 06:55 Test: GLUCOSE, FASTING; Value: 94; Range: 83-110; Units: MG/DL; Status: F Test: BLOOD UREA NITROGEN; Value: 45; Range: 7-18; Abnormal: Above high normal; Units: MG/DL; Status: F Test: CREATININE FOR GFR; Value: 2.19; Range: 0.55-1.02; Abnormal: Above high normal; Units: MG/DL; Status: F Test: GLOMERULAR FILTRATION RATE; Value: 22.5; Range: >32; Abnormal: Below low normal; Status: F Test: SODIUM LEVEL; Value: 140; Range: 136-145; Units: MEQ/L; Status: F Test: POTASSIUM SERUM; Value: 4.3; Range: 3.5-5.1; Units: MEQ/L; Status: F Test: CHLORIDE LEVEL; Value: 105; Range: 98-107; Units: MEQ/L; Status: F Test: CARBON DIOXIDE LEVEL; Value: 26; Range: 21-32; Units: MEQ/L; Status: F Test: ANION GAP; Value: 9; Range: 8-16; Units: MEQ/L; Status: F Test: CALCIUM LEVEL; Value: 8.1; Range: 8.8-10.2; Abnormal: Below low normal; Units: MG/DL; Status: F Test Note: ; Units are mL/min/1.73 m2 Chronic Kidney Disease Staging per NKF: Stage I & II GFR >=60 Normal to Mildly Decreased Stage III GFR 30-59 Moderately Decreased Stage IV GFR 15-29 Severely Decreased Stage V GFR <15 Very Little GFR Left ESRD GFR <15 on MANDREL MAKER Lab Order: COMPLETE BLOOD COUNT; [facility] 10/15/16 06:55 Test: WHITE BLOOD COUNT; Value: 7.9; Range: 4.0-10.0; Units: K/mm3; Status: F Test: RED BLOOD COUNT; Value: 4.04; Range: 4.00-5.40; Units: M/mm3; Status: F Test: HEMOGLOBIN; Value: 12.7; Range: 12.0-16.0; Units: g/dl; Status: F Test: HEMATOCRIT; Value: 37.5; Range: 36.0-47.0; Units: %; Status: F Test: MEAN CORPUSCULAR VOLUME; Value: 93.0; Range: 80.0-96.0; Units: fl; Status: F Test: MEAN CORPUSCULAR HEMOGLOBIN; Value: 31.4; Range: 27.0-33.0; Units: pg; Status: F Test: MEAN CORPUSCULAR HGB CONC; Value: 33.7; Range: 32.0-36.5; Units: g/dl; Status: F Test: RED CELL DISTRIBUTION WIDTH; Value: 12.0; Range: 11.5-14.5; Units: %; Status: F Test: PLATELET COUNT, AUTOMATED; Value: 142; Range: 150-450; Abnormal: Below low normal; Units: k/mm3; Status: F Lab Order: TROPONIN; [facility]10/15/16 01:32 Test: TROPONIN I; Value: 0.08; Range: < 0.10; Units: NG/ML; Status: F Test Note: ; Troponin I Reference Interval for Siemens [place] iAdvize: 99th Percentile= 0.00-0.045 ng/ml Risk Stratification: <= 0.10 ng/ml Decreased Risk for Adverse Clinical Events. 0.10-1.50 ng/ml Increased Risk for Adverse Clinical Events. Evaluation of additional criterion and/or repeat testing in 2-6 hours is suggested to rule out myocardial damage. >= 1.50 ng/ml Indicative of Myocardial Injury. Lab Order: THYROID STIMULATING HORMONE; SPEC10/15/16 06:55 Test: THYROID STIMULATING HORMONE; Value: 4.660; Range: 0.358-3.740; Abnormal: Above high normal; Units: uIU/ML; Status: F Lab Order: TROPONIN; SPEC10/15/16 06:55 Test: TROPONIN I; Value: 0.05; Range: < 0.10; Abnormal: Delta; Units: NG/ML; Status: F Test Note: ; Troponin I Reference Interval for Siemens [place] iAdvize: 99th Percentile= 0.00-0.045 ng/ml Risk Stratification: <= 0.10 ng/ml Decreased Risk for Adverse Clinical Events. 0.10-1.50 ng/ml Increased Risk for Adverse Clinical Events. Evaluation of additional criterion and/or repeat testing in 2-6 hours is suggested to rule out myocardial damage. >= 1.50 ng/ml Indicative of Myocardial Injury. Lab Order: VANCOMYCIN RANDOM; SPEC'M 10/15/16 06:55 Test: VANCOMYCIN RANDOM; Value: 17.3; Units: UG/ML; Status: F Radiology Order: Chest, 2 View (pa\\E\\lat) Test: Chest, 2 View (pa\\E\\lat) REASON FOR EXAMINATION: fever; Clinical: Fever. Chest pain.; ; Technique: AP and lateral.; ; Comparison: 08/23/2016.; ; Findings:; Mediastinum and cardiac silhouette are stable. Lung ram demonstrate chronic; interstitial changes. Superimposed basilar atelectasis/infiltrate cannot be; excluded. Small left pleural effusion cannot be excluded. No pneumothorax.; Skeletal structures stable.; ; Impression:; Limited examination. Cannot exclude superimposed atelectasis or small left; pleural effusion.; ; ; Signed by; Jeff Goodwin MD 10/15/2016 07:39 A; Radiology Order: EKG-ADULT Test: EKG-ADULT REASON FOR EXAMINATION: new a fib/flutter; Stationary ECG Study; [facility]; ; Test Date: 2016-10-14; Pat Name: [facility] Department:; Room: [place] [address]; Gender: F Printed Circuit Boards Inspector: lennox; : 1930 Requested By: SAMREEN WOO; Order Number: [id number] Reading : Nicolasa Caballero; Measurements; Intervals Wheeler; Rate: 85 P:; SC: 0 QRS: 101; QRSD: 72 T: -5; QT: 361; QTc: 430; Interpretive Statements; ATRIAL FIBRILLATION; MARKED RIGHT AXIS DEVIATION; NONSPECIFIC ST T-WAVE ABNORMALITY; PRIOR SINUS BRADYCARDIA 08/23/16; Electronically Signed On 10-15-2016 8:11:23 EST by Nicolasa Caballero; Radiology Order: EKG-ADULT Test: EKG-ADULT REASON FOR EXAMINATION: converted to NSR; Stationary ECG Study; [facility]; ; Test Date: 2016-10-15; Pat Name: [facility] Department:; Room: [place] [address]; Gender: F Printed Circuit Boards Inspector: MIRELLA; : 1930 Requested By: SAMREEN WOO; Order Number: [id number] Reading : Nicolasa Caballero; Measurements; Intervals Wheeler; Rate: 60 P: 61; SC: 234 QRS: 52; QRSD: 74 T: 46; QT: 423; QTc: 424; Interpretive Statements; SINUS RHYTHM WITH FIRST DEGREE AV BLOCK; POSSIBLE LEFT ATRIAL ENLARGEMENT; NONSPECIFIC T-WAVE ABNORMALITY; PRIOR ATRIAL FIBRILLATION 20:37; Electronically Signed On 10-15-2016 8:13:36 EST by Nicolasa Caballero; Outcome: 22:58 Decision to Hospitalize by Provider. reed 10/15 12:11 Patient left the ED. kcs Signatures: Dispatcher [employer] EDGeovanny Patel MD MD pc Sleeman, Kacey, RN RN alyce Callejas, Jovana Delatorre, RN RN chase Atkinson, Inna, Reg Reg gb Timothy, Aj, Duralumin Metalworker Unit ml3 Tong Rhoades, [employer] COUNCIL MEMBER TRI[employer] MEMBER kb5 Samreen Floyd, COMPOSITION BOARD PRESS OPERATOR COMPOSITION BOARD PRESS OPERATOR Akash Turner jc3 Corie Sawant, TRI[employer] COUNCIL MEMBER TRI[employer] COU[employer]IL MEMBER ar3 Jo Cooper gjb Ita Bustos, TRI[employer] COUNCIL MEMBER TRI[employer] COU[employer]IL MEMBER prashanthn Lanette Gamble2 Leila GonzalezRN RN mv5 Chart Complete MTDKarine
--- NOTE | 2016-10-17 13:12 | EDDOCDS ---
Physician Documentation [facility] Name: Ariela Driscoll Age: 86 yrs Sex: Female : 1930 Arrival Date: 10/14/2016 Time: 19:53 Bed Admit Hold Private MD: Disposition: 10/14/16 22:58 Hospitalization ordered by Domingo Washington for Observation. Preliminary diagnosis are Lobar pneumonia, unspecified organism, Atrial fibrillation and flutter. - Bed requested for PCU. - Status is Observation. kcs - Condition is Stable. - Problem is new. - Symptoms are unchanged. Historical: - Allergies: no known allergies; - Home Meds: 1. mirtazapine 7.5 mg Oral tab once daily 2. furosemide 10 mg tab oral tab every Fri/Fri/Fri 3. amlodipine 10 mg Oral tab 1 tab once daily 4. atenolol 12.5 mg tab Oral tab once daily 5. bisacodyl 10 mg Rectal supp 1 suppository as needed 6. acetaminophen 325 mg Oral tab 2 tabs as needed - PMHx: breast cancer; CHF; Dementia; Depression; Gout; Hypertension; UTI; - PSHx: breast lumpectomy; Hysterectomy; - Social history: Smoking status: unknown if patient ever smoked tobacco. No barriers to communication noted, The patient speaks fluent Lao. - Family history: No immediate family members are acutely ill. - : The pt / caregiver states he / she is not on anticoagulants. Home medication list is obtained from PCP visit record. - Exposure Risk Screening:: None identified. Vital Signs: 10/14 19:58 Temp 103.5(TE); ar3 20:05 BP 152 / 77; Pulse 81; Resp 18; Temp 103.5(TE); Pulse Ox 92% on 3 lpm NC; Weight 88.77 lr2 kg / 195.7 lbs; Height 61 in. (154.94 cm); Pain 0/10; 20:37 Temp 101.1(R); mv5 20:44 BP 165 / 65; Pulse 85; Resp 18; Pulse Ox 94% 2 lpm ; mv5 21:18 BP 110 / 51 (auto/); mv5 21:18 Pulse 68 MON; Resp 16; Temp 99.8(TE); Pulse Ox 92% ; mv5 22:18 BP 131 / 61 (auto/); mv5 22:18 Pulse 72 MON; Pulse Ox 93% ; mv5 22:48 BP 138 / 65 (auto/); mv5 22:48 Pulse 58 MON; Pulse Ox 93% ; mv5 23:18 BP 136 / 60 (auto/); mv5 23:18 Pulse 60 MON; Pulse Ox 93% ; mv5 23:48 BP 132 / 63 (auto/); mv5 23:48 Pulse 58 MON; Pulse Ox 94% ; mv5 10/15 00:03 BP 103 / 55 (auto/); sep 00:04 Pulse 122 MON; Pulse Ox 98% ; sep 00:18 BP 98 / 57 (auto/); sep 00:19 Pulse 119 MON; Pulse Ox 98% ; sep 00:33 BP 94 / 51 (auto/); sep 00:34 Pulse 117 MON; Pulse Ox 99% ; sep 00:48 BP 100 / 57 (auto/); sep 00:48 Pulse 116 MON; Pulse Ox 95% ; sep 02 20:05 Body Mass Index 36.98 (88.77 kg, 154.94 cm) lr2 MDM: 10/14 20:06 Vital Signs ordered. le 20:06 Misc Gelatin Dynamite Packing Operator Order ordered. le 20:07 Misc Gelatin Dynamite Packing Operator Order complete. ml3 20:08 Chest, 2 View (pa\E\lat) Ordered. EDMS 20:08 -Blood Culture (Adults Only), peripheral from different site, or from device/port/PICC le etc. if present ordered. 20:08 Call Respiratory ordered. le 20:08 Barrel Dedenting Machine Operator/Pulse Ox/q 15 min VS ordered. le 20:08 Straight cath ordered. le 20:08 Rectal Temp ordered. le 20:08 Acetaminophen Tablet 650 mg PO once ordered. le 20:09 RESPIRATORY PANEL Ordered. EDMS 20:10 -Arterial Blood Gas Ordered. EDMS 20:10 C Reactive Protein Ordered. EDMS 20:10 CBC with Diff Ordered. EDMS 20:10 Lactic Acid (Suarez tube on ice) Ordered. EDMS 20:10 Liver Profile Ordered. EDMS 20:10 MED Profile Ordered. EDMS 20:10 PT/INR Ordered. EDMS 20:10 PTT Ordered. EDMS 20:10 Urinalysis Ordered. EDMS 20:10 -Blood Culture Ordered. EDMS 20:10 Urine Culture Ordered. EDMS 20:17 Call Respiratory complete. ml3 20:18 -Blood Culture (Adults Only), peripheral from different site, or from device/port/PICC ml3 etc. if present complete. 20:19 BLOOD CULTURES Ordered. EDMS 20:23 Aspirin 325 mg PO once ordered. le 20:23 ECG WITH READING ER PHYS+CARDIAG ordered. EDMS 21:14 Financial registration complete. gjb 22:12 [facility] Payment Agreement was scanned into iLive and attached to record. gjb 22:23 RESPIRATORY PANEL Reviewed. le 22:23 -Arterial Blood Gas Reviewed. le 22:23 C Reactive Protein Reviewed. le 22:23 CBC with Diff Reviewed. le 22:23 Liver Profile Reviewed. le 22:23 MED Profile Reviewed. le 22:23 Urinalysis Reviewed. le 22:23 Lactic Acid (Suarez tube on ice) Reviewed. le 22:23 PT/INR Reviewed. le 22:23 PTT Reviewed. le 22:29 BED REQUEST+ADM ordered. EDMS 22:30 levofloxacin 750 mg IVPB once over 90 mins ordered. le 23:44 ECG WITH READING ER PHYS+CARDIAG ordered. EDMS 02 00:22 PHYSICAL THERAPY EVAL & TREAT ordered. EDMS 00:22 Admission / Observation Status ordered. EDMS 00:23 ECHOCARD,DOPPLER/COLOR FLOW ordered. EDMS 00:23 CONSISTENT CARBOHYDRATES ordered. EDMS 00:23 BASIC METABOLIC PROFILE Ordered. EDMS 00:23 COMPLETE BLOOD COUNT Ordered. EDMS 00:23 TROPONIN Ordered. EDMS 00:23 TROPONIN Ordered. EDMS 00:23 THYROID STIMULATING HORMONE Ordered. EDMS 01:19 SPUTUM CULTURE AND GRAM STAIN Ordered. EDMS 01:24 ELECTROCARDIOGRAM ADULT ordered. EDMS 06:49 TROPONIN Ordered. EDMS 06:49 VANCOMYCIN RANDOM Ordered. EDMS 10/16 14:35 T-Sheet-- Draft Copy was scanned into iLive and attached to record. gb 14:36 ECG/EKG was scanned into iLive and attached to record. gb Administered Medications: 10/14 20:44 Drug: Acetaminophen 650 mg [acetaminophen 325 mg tablet (2 tabs)] Route: PO; mv5 21:16 Follow up: Response: No Adverse Reaction mv5 20:44 Drug: Aspirin 325 mg [aspirin 325 mg tablet (1 tabs)] Route: PO; mv5 21:15 Follow up: Response: No Adverse Reaction mv5 22:54 Drug: levofloxacin 750 mg [levofloxacin 750 mg/150 mL in 5 % dextrose intravenous mv5 piggyback] Route: IVPB; Infused Over: 90 mins; Site: left antecubital; Signatures: Dispatcher [employer] Pilar Ospina, RN RN Inna Crouch, Reg Reg gb Timothy, Aj, Account Coordinator Unit ml3 Samreen Floyd, MUSIC LIBRARIAN MUSIC LIBRARIANJo Palmer Megan, RN RN mv5 The chart was reviewed and I authenticate all verbal orders and agree with the evaluation and treatment provided.Corrections: (The following items were deleted from the chart) 10/15 06:51 00:23 TROPONIN ordered. EDMS EDMS 06:51 01:45 VANCOMYCIN RANDOM ordered. EDMS EDMS Attachments: 10/14 22:12 [facility] [place] Agreement [facility] 10/16 14:35 T-Sheet-- Draft Copy gb 14:36 ECG/EKG Chart Complete MTDD
--- NOTE | 2016-10-17 15:07 | IPNPDOC ---
Subjective General Date Seen The patient was seen on 10/16/16. Subjective Chief Complaint/HPI The patient is a 86-year-old female admitted with a reason for visit of Healthcare Associated Pneumonia. Objective Physical Examination General Exam: Positive: Cooperative, No Acute Distress, Other (patient only oriented to person, but not to place, time, or situation) ENT Exam: Positive: Atraumatic, Mucous membr. moist/pink Neck Exam: Negative: JVD Chest Exam: Positive: Diminished Heart Exam: Positive: Normal S1, Normal S2, Rate Normal Telemetry: Positive: Sinus Abdomen Exam: Positive: Soft, Negative: Tenderness Extremity Exam: Positive: Swelling (1+ pitting edema in the lower extremities bilaterally), Negative: Tenderness Assessment /Plan Problems Problems: (1) Acute on chronic renal failure Status: Acute Problem Text: * worsening likely secondary to antibiotics, vs fluid overload * will continue to monitor (2) Afib Status: Acute Problem Text: new onset (3) HCAP (healthcare-associated pneumonia) Status: Acute (4) Falls Status: Chronic Response to Treatment: Stable (5) HTN (hypertension) Status: Chronic Response to Treatment: Stable (6) Dementia Status: Chronic Response to Treatment: Stable Plan/VTE VTE Prophylaxis Ordered?: Yes VS, I&O, 24H, Fishbone Vital Signs/I&O Vital Signs Date Time Temp Pulse Resp B/P Pulse Ox O2 Delivery O2 Flow Rate FiO2 10/16/16 16:15 98.9 80 22 143/77 94 Nasal Cannula 4.0 I&O- Last 24 Hours up to 6 AM 10/16/16 06:00 Intake Total 300 ml Output Total 0 ml Balance 300 ml Laboratory Data 24H LABS Laboratory Tests 2 10/16/16 05:04: Anion Gap 13, Blood Urea Nitrogen 45H, Creatinine 2.33H, Sodium Level 139, Potassium Level 4.0, Chloride Level 102, Carbon Dioxide Level 24, Calcium Level 8.2L, Glomerular Filtration Rate 21.0L, Random Vancomycin Level 10.3 CBC/BMP Laboratory Tests 10/16/16 05:04 Calcium Level 8.2 L, Red Blood Count 4.08, Mean Corpuscular Volume 94.8, Mean Corpuscular Hemoglobin 30.8, Mean Corpuscular Hemoglobin Concent 32.5, Red Cell Distribution Width 12.3 Microbiology Microbiology 10/14/16 Blood Culture - Preliminary, Resulted No growth after 24 hours . All specim... 10/14/16 Blood Culture - Preliminary, Resulted No growth after 24 hours . All specim... 10/14/16 Respiratory Virus Panel (PCR) (LATONYA) - Final, Complete 10/14/16 Urine Culture, Received Pending PRINCE GARCIA DO Oct 16, 2016 19:36
--- NOTE | 2016-10-17 15:13 | IPNPDOC ---
Subjective Date Seen The patient was seen on 10/17/16. Subjective Chief Complaint/HPI The patient is a 86-year-old female admitted with a reason for visit of Healthcare Associated Pneumonia. Events since last encounter pt is still having shortness of breath Constitutional: Reports: Fever Pulmonary: Reports: Cough, Dyspnea Objective Physical Examination General Exam: Positive: Cooperative, No Acute Distress, Other (patient only oriented to person, but not to place, time, or situation) ENT Exam: Positive: Atraumatic, Mucous membr. moist/pink Neck Exam: Negative: JVD Chest Exam: Positive: Diminished Heart Exam: Positive: Normal S1, Normal S2, Rate Normal Telemetry: Positive: Sinus Abdomen Exam: Positive: Soft, Negative: Tenderness Extremity Exam: Positive: Swelling (1+ pitting edema in the lower extremities bilaterally), Negative: Tenderness Assessment /Plan Problems (1) Acute on chronic renal failure Status: Acute Problem Text: * worsening likely secondary to antibiotics, vs fluid overload * will continue to monitor (2) Afib Status: Acute Problem Text: new onset (3) HCAP (healthcare-associated pneumonia) Status: Acute (4) Falls Status: Chronic Response to Treatment: Stable (5) HTN (hypertension) Status: Chronic Response to Treatment: Stable (6) Dementia Status: Chronic Response to Treatment: Stable Plan/VTE VTE Prophylaxis Ordered?: Yes VS, I&O, 24H, Fishbone Vital Signs/I&O Vital Signs Date Time Temp Pulse Resp B/P Pulse Ox O2 Delivery O2 Flow Rate FiO2 10/17/16 12:00 98.3 88 20 176/76 94 Venturi Mask 15.0 I&O- Last 24 Hours up to 6 AM 10/17/16 06:00 Intake Total 790 ml Balance 790 ml Laboratory Data 24H LABS Laboratory Tests 2 10/17/16 05:51: Anion Gap 12, Blood Urea Nitrogen 41H, Creatinine 2.23H, Sodium Level 139, Potassium Level 3.8, Chloride Level 102, Carbon Dioxide Level 25, Calcium Level 8.3L, Glomerular Filtration Rate 22.1L, Random Vancomycin Level 16.5 CBC/BMP Laboratory Tests 10/17/16 05:51 Calcium Level 8.3 L, Red Blood Count 3.89 L, Mean Corpuscular Volume 93.3, Mean Corpuscular Hemoglobin 30.9, Mean Corpuscular Hemoglobin Concent 33.2, Red Cell Distribution Width 12.1 Microbiology Microbiology 10/14/16 Blood Culture - Preliminary, Resulted No Growth after 48 hours. All Specime... 10/14/16 Blood Culture - Preliminary, Resulted No Growth after 48 hours. All Specime... 10/14/16 Respiratory Virus Panel (PCR) (LATONYA) - Final, Complete 10/14/16 Urine Culture - Final, Complete PRINCE GARCIA DO Oct 17, 2016 15:13
[2016-10-17] MEDS: FEBUXOSTAT 40 MG TABLET (ULORIC) PO SCH (18:07)
[2016-10-17] MEDS: MIRTAZAPINE 7.5MG PER 1/2 TABLET PO SCH (21:03)
[2016-10-18] MEDS: IPRATROPIUM 0.5MG/ALBUTEROL 2.5MG INH SOL UD 3ML (DUONEB)(J7620) NEB SCH ×4 (01:54→21:27)
[2016-10-18 04:00] VITALS: BP 148/69
[2016-10-18] MEDS: PIPERACILLIN/TAZOBACTAM SOD 2.25 GM in D5W MINI-BAG PLUS 50 ML IV SCH ×3 (04:22→20:17)
[2016-10-18 05:44] LABS: MEAN CORPUSCULAR HEMOGLOBIN 31.4 pg (27.0-33.0); MEAN CORPUSCULAR HGB CONC 33.8 g/dl (32.0-36.5); MEAN CORPUSCULAR VOLUME 92.7 fl (80.0-96.0); RED CELL DISTRIBUTION WIDTH 12.2 % (11.5-14.5); WHITE BLOOD COUNT 13.4 K/mm3 (4.0-10.0)
[2016-10-18 06:00] LABS: CALCIUM LEVEL 8.7 MG/DL (8.8-10.2); CREATININE FOR GFR 2.1 MG/DL (0.55-1.02); GLOMERULAR FILTRATION RATE 23.7 (>32); POTASSIUM SERUM 3.6 MEQ/L (3.5-5.1)
[2016-10-18 08:00] VITALS: BP 184/85
[2016-10-18] MEDS: NYSTATIN 100,000 UNITS/GM TOPICAL PWD 15 GM TOP SCH ×2 (09:14→20:17)
[2016-10-18] MEDS: amLODIPine 10 MG TAB PO SCH (09:14)
[2016-10-18] MEDS: FUROSEMIDE 20 MG/2 ML VIAL (J1940) IV SCH (09:14)
[2016-10-18] MEDS: APIXABAN 2.5 MG TAB (ELIQUIS) PO SCH ×2 (09:14→20:17)
[2016-10-18] MEDS: VANCOMYCIN HCL 750 MG, VIAL MATE ADAPTER 1 EACH in D5W 250 ML IV SCH (10:26)
[2016-10-18 12:00] VITALS: BP 167/74
--- NOTE | 2016-10-18 15:35 | IPNPDOC ---
Subjective Date Seen The patient was seen on 10/18/16. Subjective Chief Complaint/HPI The patient is a 86-year-old female admitted with a reason for visit of Healthcare Associated Pneumonia. Events since last encounter pt seen and examined, General: Reports: ROS Unobtainable Objective Physical Examination General Exam: Positive: Cooperative, No Acute Distress, Other (patient only oriented to person, but not to place, time, or situation) ENT Exam: Positive: Atraumatic, Mucous membr. moist/pink Neck Exam: Negative: JVD Chest Exam: Positive: Diminished Heart Exam: Positive: Normal S1, Normal S2, Rate Normal Telemetry: Positive: Sinus Abdomen Exam: Positive: Soft, Negative: Tenderness Extremity Exam: Positive: Swelling (1+ pitting edema in the lower extremities bilaterally), Negative: Tenderness Assessment /Plan Problems (1) Acute on chronic renal failure Status: Acute Problem Text: * improving (2) Afib Status: Acute Problem Text: new onset started pt on elquis (3) HCAP (healthcare-associated pneumonia) Status: Acute Problem Text: * continue vanco and zosyn (4) Falls Status: Chronic Response to Treatment: Stable Problem Text: pt is from intermediate (5) HTN (hypertension) Status: Chronic Response to Treatment: Stable (6) Dementia Status: Chronic Response to Treatment: Stable Plan/VTE VTE Prophylaxis Ordered?: Yes VS, I&O, 24H, [facility] Vital Signs/I&O Vital Signs Date Time Temp Pulse Resp B/P Pulse Ox O2 Delivery O2 Flow Rate FiO2 10/18/16 12:00 98.5 92 18 167/74 93 Nasal Cannula 3.0 I&O- Last 24 Hours up to 6 AM 10/18/16 06:00 Intake Total 830 ml Balance 830 ml Laboratory Data 24H LABS Laboratory Tests 2 10/18/16 05:16: Anion Gap 12, Blood Urea Nitrogen 38H, Creatinine 2.10H, Sodium Level 139, Potassium Level 3.6, Chloride Level 103, Carbon Dioxide Level 24, Calcium Level 8.7L, Glomerular Filtration Rate 23.7L 10/18/16 09:17: Vancomycin Level Trough 18.2 CBC/BMP Laboratory Tests 10/18/16 05:16 Calcium Level 8.7 L, Red Blood Count 3.82 L, Mean Corpuscular Volume 92.7, Mean Corpuscular Hemoglobin 31.4, Mean Corpuscular Hemoglobin Concent 33.8, Red Cell Distribution Width 12.2 Microbiology Microbiology 10/14/16 Blood Culture - Preliminary, Resulted No Growth after 72 hours. All specime... 10/14/16 Blood Culture - Preliminary, Resulted No Growth after 72 hours. All specime... 10/14/16 Respiratory Virus Panel (PCR) (LATONYA) - Final, Complete 10/14/16 Urine Culture - Final, Complete PRINCE GARCIA DO Oct 18, 2016 15:35
[2016-10-18 16:00] VITALS: BP 168/71
[2016-10-18] MEDS: ONDANSETRON 4MG/2ML VIAL (J2405) IV PRN ×2 (17:03→21:52)
[2016-10-18] MEDS: FEBUXOSTAT 40 MG TABLET (ULORIC) PO SCH (18:39)
[2016-10-18 20:00] VITALS: BP 127/63
[2016-10-18] MEDS: MIRTAZAPINE 7.5MG PER 1/2 TABLET PO SCH (20:17)
[2016-10-19] VITALS (7 sets, daily range): BP systolic 142–178; BP diastolic 63–84
[2016-10-19] MEDS: IPRATROPIUM 0.5MG/ALBUTEROL 2.5MG INH SOL UD 3ML (DUONEB)(J7620) NEB SCH ×4 (02:49→20:08)
[2016-10-19] MEDS: PIPERACILLIN/TAZOBACTAM SOD 2.25 GM in D5W MINI-BAG PLUS 50 ML IV SCH ×3 (04:39→21:23)
[2016-10-19 05:16] LABS: MEAN CORPUSCULAR HEMOGLOBIN 31.1 pg (27.0-33.0); MEAN CORPUSCULAR HGB CONC 33.9 g/dl (32.0-36.5); MEAN CORPUSCULAR VOLUME 91.9 fl (80.0-96.0); RED CELL DISTRIBUTION WIDTH 12.2 % (11.5-14.5); WHITE BLOOD COUNT 13.5 K/mm3 (4.0-10.0)
[2016-10-19 05:31] LABS: CALCIUM LEVEL 8.4 MG/DL (8.8-10.2); CREATININE FOR GFR 2.06 MG/DL (0.55-1.02); GLOMERULAR FILTRATION RATE 24.2 (>32); POTASSIUM SERUM 3.4 MEQ/L (3.5-5.1)
[2016-10-19] MEDS: VANCOMYCIN HCL 750 MG, VIAL MATE ADAPTER 1 EACH in D5W 250 ML IV SCH (09:28)
[2016-10-19] MEDS: FUROSEMIDE 20 MG/2 ML VIAL (J1940) IV SCH (09:28)
[2016-10-19] MEDS: amLODIPine 10 MG TAB PO SCH (09:28)
[2016-10-19] MEDS: APIXABAN 2.5 MG TAB (ELIQUIS) PO SCH ×2 (09:28→21:24)
[2016-10-19] MEDS: NYSTATIN 100,000 UNITS/GM TOPICAL PWD 15 GM TOP SCH ×2 (09:29→21:23)
--- NOTE | 2016-10-19 09:29 | REP ---
Clinical: Hypoxia. Comparison: 10/16/2016. Findings: Mid to lower lobe infiltrates and suspected effusions (left greater than right) are similar to prior examination. No pneumothorax. Mediastinum and cardiac silhouette stable. Skeletal structures demonstrate age-related degenerative changes. Impression: Bilateral infiltrates and effusions (left greater than right) similar to prior examination. Signed by Jeff Goodwin MD 10/19/2016 09:21 A
--- NOTE | 2016-10-19 13:30 | IPNPDOC ---
Subjective Date Seen The patient was seen on 10/19/16. Subjective Chief Complaint/HPI The patient is a 86-year-old female admitted with a reason for visit of Healthcare Associated Pneumonia. Events since last encounter pt seen and examined still complaining of some shortness of breath and not feeling well, she states she wants to get up and sit in the chair Constitutional: Denies: Chills, Fever, Night Sweats Objective Physical Examination General Exam: Positive: Cooperative, No Acute Distress, Other ENT Exam: Positive: Atraumatic, Mucous membr. 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 (3) Afib Status: Acute Problem Text: new onset started pt on elquis will resume atenolol with hold parameters (4) Falls Status: Chronic Response to Treatment: Stable Problem Text: pt is from [facility] living (5) HTN (hypertension) Status: Chronic Response to Treatment: Stable (6) Dementia Status: Chronic Response to Treatment: Stable Plan/VTE VTE Prophylaxis Ordered?: Yes VS, I&O, 24H, [facility] Vital Signs/I&O Vital Signs Date Time Temp Pulse Resp B/P Pulse Ox O2 Delivery O2 Flow Rate FiO2 10/19/16 12:00 Nasal Cannula 3.0 10/19/16 12:00 97.0 89 18 178/83 93 I&O- Last 24 Hours up to 6 AM 10/19/16 06:00 Intake Total 1240 ml Output Total 150 ml Balance 1090 ml Laboratory Data 24H LABS Laboratory Tests 2 10/19/16 04:55: Anion Gap 10, Blood Urea Nitrogen 36H, Creatinine 2.06H, Sodium Level 141, Potassium Level 3.4L, Chloride Level 102, Carbon Dioxide Level 29, Calcium Level 8.4L, Glomerular Filtration Rate 24.2L CBC/BMP Laboratory Tests 10/19/16 04:55 Calcium Level 8.4 L, Red Blood Count 3.80 L, Mean Corpuscular Volume 91.9, Mean Corpuscular Hemoglobin 31.1, Mean Corpuscular Hemoglobin Concent 33.9, Red Cell Distribution Width 12.2 Microbiology Microbiology 10/14/16 Blood Culture - Preliminary, Resulted No Growth after 72 hours. All specime... 10/14/16 Blood Culture - Preliminary, Resulted No Growth after 72 hours. All specime... 10/14/16 Respiratory Virus Panel (PCR) (LATONYA) - Final, Complete 10/14/16 Urine Culture - Final, Complete PRINCE GARCIA DO Oct 19, 2016 13:29
[2016-10-19] MEDS: POTASSIUM CHLORIDE 10 MEQ SR TABLET PO SCH (16:50)
[2016-10-19] MEDS: FEBUXOSTAT 40 MG TABLET (ULORIC) PO SCH (16:50)
[2016-10-19] MEDS: ATENOLOL 12.5MG PER 1/2 TABLET PO SCH (16:50)
[2016-10-19] MEDS: MIRTAZAPINE 7.5MG PER 1/2 TABLET PO SCH (21:24)
[2016-10-19] MEDS: ONDANSETRON 4MG/2ML VIAL (J2405) IV PRN (21:27)
[2016-10-20] VITALS (7 sets, daily range): BP systolic 138–161; BP diastolic 63–83; PULSE 68
[2016-10-20] MEDS: IPRATROPIUM 0.5MG/ALBUTEROL 2.5MG INH SOL UD 3ML (DUONEB)(J7620) NEB SCH ×4 (00:23→19:53)
[2016-10-20] MEDS: PIPERACILLIN/TAZOBACTAM SOD 2.25 GM in D5W MINI-BAG PLUS 50 ML IV SCH ×3 (04:54→21:53)
[2016-10-20 05:35] LABS: MEAN CORPUSCULAR HEMOGLOBIN 31.4 pg (27.0-33.0); MEAN CORPUSCULAR HGB CONC 34.1 g/dl (32.0-36.5); RED CELL DISTRIBUTION WIDTH 12.2 % (11.5-14.5); WHITE BLOOD COUNT 14.1 K/mm3 (4.0-10.0)
[2016-10-20 05:39] LABS: CALCIUM LEVEL 8.6 MG/DL (8.8-10.2); CREATININE FOR GFR 2.03 MG/DL (0.55-1.02); GLOMERULAR FILTRATION RATE 24.6 (>32); MAGNESIUM LEVEL 2.2 MG/DL (1.8-2.4); POTASSIUM SERUM 3.6 MEQ/L (3.5-5.1)
[2016-10-20] MEDS: ONDANSETRON 4MG/2ML VIAL (J2405) IV PRN ×2 (08:15→18:10)
[2016-10-20] MEDS: FUROSEMIDE 20 MG/2 ML VIAL (J1940) IV SCH (08:15)
[2016-10-20] MEDS: APIXABAN 2.5 MG TAB (ELIQUIS) PO SCH ×2 (08:19→21:53)
[2016-10-20] MEDS: amLODIPine 10 MG TAB PO SCH (08:20)
[2016-10-20] MEDS: ATENOLOL 12.5MG PER 1/2 TABLET PO SCH (08:20)
[2016-10-20] MEDS: NYSTATIN 100,000 UNITS/GM TOPICAL PWD 15 GM TOP SCH ×2 (08:21→21:54)
[2016-10-20] MEDS: POTASSIUM CHLORIDE 10 MEQ SR TABLET PO SCH (08:21)
[2016-10-20] MEDS: VANCOMYCIN HCL 750 MG, VIAL MATE ADAPTER 1 EACH in D5W 250 ML IV SCH (10:25)
--- NOTE | 2016-10-20 14:07 | IPNPDOC ---
Subjective Date Seen The patient was seen on 10/20/16. Subjective Chief Complaint/HPI The patient is a 86-year-old female admitted with a reason for visit of Healthcare Associated Pneumonia. Pulmonary: Reports: Cough, Dyspnea Objective Physical Examination General Exam: Positive: Cooperative, No Acute Distress, Other ENT Exam: Positive: Atraumatic, Mucous membr. 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 business education 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 (3) Afib Status: Acute Problem Text: new onset started pt on elquis will resume atenolol with hold parameters (4) Falls Status: Chronic Response to Treatment: Stable Problem Text: pt is from longterm (5) HTN (hypertension) Status: Chronic Response to Treatment: Stable (6) Dementia Status: Chronic Response to Treatment: Stable (7) Loose stools Status: Acute Problem Text: * will order Cdiff (8) Leukocytosis Status: Acute Problem Text: * pt has been afebrile but WBC continues to go up Plan/VTE VTE Prophylaxis Ordered?: Yes VS, I&O, 24H, [facility] Vital Signs/I&O Vital Signs Date Time Temp Pulse Resp B/P Pulse Ox O2 Delivery O2 Flow Rate FiO2 10/20/16 12:00 97.0 72 18 138/83 91 Nasal Cannula 3.0 I&O- Last 24 Hours up to 6 AM 10/20/16 05:59 Intake Total 1070 ml Output Total 0 ml Balance 1070 ml Laboratory Data 24H LABS Laboratory Tests 2 10/20/16 04:52: Anion Gap 10, Blood Urea Nitrogen 37H, Creatinine 2.03H, Sodium Level 141, Potassium Level 3.6, Chloride Level 103, Carbon Dioxide Level 28, Calcium Level 8.6L, Glomerular Filtration Rate 24.6L, Magnesium Level 2.2 CBC/BMP Laboratory Tests 10/20/16 04:52 Calcium Level 8.6 L, Red Blood Count 3.76 L, Mean Corpuscular Volume 92.0, Mean Corpuscular Hemoglobin 31.4, Mean Corpuscular Hemoglobin Concent 34.1, Red Cell Distribution Width 12.2 Microbiology Microbiology 10/14/16 Blood Culture - Final, Complete NO GROWTH AFTER 5 DAYS 10/14/16 Blood Culture - Final, Complete NO GROWTH AFTER 5 DAYS 10/14/16 Respiratory Virus Panel (PCR) (LATONYA) - Final, Complete 10/14/16 Urine Culture - Final, Complete PRINCE GARCIA DO Oct 20, 2016 14:07
[2016-10-20] MEDS: FEBUXOSTAT 40 MG TABLET (ULORIC) PO SCH (18:09)
[2016-10-20] MEDS: MIRTAZAPINE 7.5MG PER 1/2 TABLET PO SCH (21:53)
[2016-10-21] VITALS: PULSE 84
[2016-10-21] MEDS: IPRATROPIUM 0.5MG/ALBUTEROL 2.5MG INH SOL UD 3ML (DUONEB)(J7620) NEB SCH ×4 (01:31→20:29)
[2016-10-21 04:00] VITALS: PULSE 70
[2016-10-21] MEDS: PIPERACILLIN/TAZOBACTAM SOD 2.25 GM in D5W MINI-BAG PLUS 50 ML IV SCH ×3 (05:00→20:05)
[2016-10-21 05:22] LABS: MEAN CORPUSCULAR HGB CONC 33.9 g/dl (32.0-36.5); MEAN CORPUSCULAR VOLUME 91.6 fl (80.0-96.0); RED CELL DISTRIBUTION WIDTH 12.3 % (11.5-14.5); WHITE BLOOD COUNT 12.6 K/mm3 (4.0-10.0)
[2016-10-21 05:41] LABS: CALCIUM LEVEL 8.5 MG/DL (8.8-10.2); CREATININE FOR GFR 2.16 MG/DL (0.55-1.02); GLOMERULAR FILTRATION RATE 22.9 (>32); POTASSIUM SERUM 3.7 MEQ/L (3.5-5.1)
[2016-10-21 06:37] VITALS: BP 160/71
[2016-10-21] MEDS: ONDANSETRON 4MG/2ML VIAL (J2405) IV PRN (07:40)
[2016-10-21 08:00] VITALS: BP 168/73
[2016-10-21] MEDS: NYSTATIN 100,000 UNITS/GM TOPICAL PWD 15 GM TOP SCH ×2 (09:15→21:19)
[2016-10-21] MEDS: FUROSEMIDE 20 MG/2 ML VIAL (J1940) IV SCH (09:15)
[2016-10-21] MEDS: amLODIPine 10 MG TAB PO SCH (09:15)
[2016-10-21] MEDS: POTASSIUM CHLORIDE 10 MEQ SR TABLET PO SCH (09:15)
[2016-10-21] MEDS: APIXABAN 2.5 MG TAB (ELIQUIS) PO SCH ×2 (09:15→20:05)
[2016-10-21] MEDS: VANCOMYCIN HCL 750 MG, VIAL MATE ADAPTER 1 EACH in D5W 250 ML IV SCH (09:16)
--- NOTE | 2016-10-21 09:51 | IPNPDOC ---
Subjective Date Seen The patient was seen on 10/21/16. Subjective Chief Complaint/HPI The patient is a 86-year-old female admitted with a reason for visit of Healthcare Associated Pneumonia. Events since last encounter pt seen and examined, still having diarrhea and vomiting, no fevers overnight, no shortness of breath, afib on tele Gastrointestinal: Reports: Diarrhea, Nausea, Vomiting Objective Physical Examination General Exam: Positive: Cooperative, No Acute Distress, Other ENT Exam: Positive: Atraumatic, Mucous membr. moist/pink Neck Exam: Negative: JVD Chest Exam: Positive: Diminished Heart Exam: Positive: Normal S1, Normal S2, Rate Normal Telemetry: Positive: Sinus Abdomen Exam: Positive: Soft Extremity Exam: Positive: Swelling Assessment /Plan Problems (1) HCAP (healthcare-associated pneumonia) Status: Acute Problem Text: * continue vanco and zosyn since 10/15 * continue to titrate oxygen * now requiring 2L of oxygen (2) Acute on chronic renal failure Status: Acute Problem Text: * improving * will continue lasix * the acute kidney injury is likely due to medication * baseline follow up clerk is 1.8-1.9 (3) Afib Status: Acute Problem Text: * new onset, rate control * CHADSVAS score of 4 * started pt on eliquis * will resume atenolol with hold parameters (4) Falls Status: Chronic Response to Treatment: Stable Problem Text: [facility] (5) HTN (hypertension) Status: Chronic Response to Treatment: Stable (6) Dementia Status: Chronic Response to Treatment: Stable (7) Loose stools Status: Acute Problem Text: * will order GI panel (8) Leukocytosis Status: Acute Response to Treatment: Improving Problem Text: * pt has been afebrile * maybe reactive vs due to infection * continue to trend (9) Nausea & vomiting Status: Acute Problem Text: * will order KUB to rule out obstruction or other acute findings Plan/VTE VTE Prophylaxis Ordered?: Yes VS, I&O, 24H, Fishbone Vital Signs/I&O Vital Signs Date Time Temp Pulse Resp B/P Pulse Ox O2 Delivery O2 Flow Rate FiO2 10/21/16 09:15 78 168/73 10/21/16 08:00 96.3 20 96 Nasal Cannula 3.0 10/20/16 20:00 100 I&O- Last 24 Hours up to 6 AM 10/21/16 06:00 Intake Total 670 ml Output Total 0 ml Balance 670 ml Laboratory Data 24H LABS Laboratory Tests 2 10/21/16 05:01: Anion Gap 10, Blood Urea Nitrogen 37H, Creatinine 2.16H, Sodium Level 140, Potassium Level 3.7, Chloride Level 101, Carbon Dioxide Level 29, Calcium Level 8.5L, Glomerular Filtration Rate 22.9L 10/21/16 08:57: CBC/BMP Laboratory Tests 10/21/16 05:01 Calcium Level 8.5 L, Red Blood Count 3.79 L, Mean Corpuscular Volume 91.6, Mean Corpuscular Hemoglobin 31.0, Mean Corpuscular Hemoglobin Concent 33.9, Red Cell Distribution Width 12.3 Microbiology Microbiology 10/14/16 Blood Culture - Final, Complete NO GROWTH AFTER 5 DAYS 10/14/16 Blood Culture - Final, Complete NO GROWTH AFTER 5 DAYS 10/14/16 Respiratory Virus Panel (PCR) (LATONYA) - Final, Complete 10/14/16 Urine Culture - Final, Complete PRINCE GARCIA DO Oct 21, 2016 09:51
--- NOTE | 2016-10-21 10:11 | REP ---
Clinical: Nausea and vomiting. Technique: Two supine views of the abdomen and pelvis. Findings: Bowel gas pattern is nonspecific. No organomegaly. Prior cholecystectomy. Vascular calcifications outlining the splenic artery. Skeletal structures demonstrate degenerative changes to the thoracolumbar spine. Impression: Nonspecific bowel gas pattern. Signed by Jeff Goodwin MD 10/21/2016 10:02 A
[2016-10-21] MEDS: ATENOLOL 12.5MG PER 1/2 TABLET PO SCH (10:42)
--- NOTE | 2016-10-21 11:32 | PHACANCOPD ---
PHARMACY VANCOMYCIN DOSING Pt Demographics Demographics Patient Age:86 , Weight:84.100 , Gender: female Adjusted Body Weight Date: 10/15/16, Adjusted Body Weight: [64.3] Kg Events Past 24 Hours Events Past 24 Hours: NO: Change in CrCl, Dialysis, Diuretic Therapy, Elevation in WBC, Fever, Other, Pending Diagnostics, Pending Procedures Vancomycin Vancomycin indication: HCAP Vancomycin Target Ranges: 15-20 mcg/ml Vancomycin Load Y/N: Yes Load Dose Date Time Vancomycin Load Dose: 1000MG Date: 10-15 Time: 0200 Vancomycin Dose Date: 10/21/16. Current Vancomycin Dose: [500mg IV q24h@14 starting 10/22] Date: 10/17/16. Current Vancomycin Dose: [750MG IV Q24H @ 1000] Date: 10/15/16. Current Vancomycin Dose: Intermittent Dosing?: No Labs Labs Item Value Date Time White Blood Count 13.5 K/mm3 H 10/19/16 0455 White Blood Count 14.1 K/mm3 H 10/20/16 0452 White Blood Count 12.6 K/mm3 H 10/21/16 0501 Creatinine 2.03 MG/DL H 10/20/16 0452 Creatinine 2.16 MG/DL H 10/21/16 0501 Vancomycin Level Trough 18.2 UG/ML 10/18/16 0917 Vancomycin Level Trough 21.3 UG/ML H 10/21/16 0857 Vital Signs Label Value Date Time Patient Temperature 96.3 degrees F 10/21/16 0800 Temperature Source Tympanic 10/21/16 0800 Micro Microbiology 10/14/16 Blood Culture - Final, Complete NO GROWTH AFTER 5 DAYS 10/14/16 Blood Culture - Final, Complete NO GROWTH AFTER 5 DAYS 10/14/16 Respiratory Virus Panel (PCR) (LATONYA) - Final, Complete 10/14/16 Urine Culture - Final, Complete Creatinine Clearance Date:10/15/16. Creatinine Clearance: [14]. Pending Labs VANCO TROUGH 10/18/16 @ 0900 Assessment and Plan Maintaining Current Dose?: No Reason for dose change: Trough too high Pharmacist Note Pharmacist Note 10/21/16: Patient's trough came back at 21.3 this morning. The patient's 10am dose was hung before trough came back this morning. She was changed to Vancomycin 500mg IV q24h starting tomorrow at 1400 to give her some time to clear the Vancomycin. All micro is negative. No fevers to report. We will continue to monitor and make adjustments as needed. Date: 10/17/16: [Vanco random returned @ 16.5. Random was drawn 20 hours post 1 gram dose. Vanco 750mg iv [id number] is scheduled to start @ 1000. Vanco trough is scheduled to be drawn 10/18/16 @0900. Continue to monitor renal function and adjust dose as needed. Cultures are still pending] 10/16/16: Random level today resulted @ 10.3. I have scheduled a one time vancomycin 1g dose to be given this morning at 0900. WBC remains elevated, and the patient has been febrile in the past 24 hours. Cultures are still pending. Another random level is scheduled for tomorrow morning, 10/17/16 @ 0500. We will continue to monitor and make further dose adjustments accordingly. Date: 10/15/16. Pharmacist note:Dosed intermittent per levels. First random am of 2-14. Will continue to monitor and make adjustments as needed. DIANE CALLEJAS PHARMACY Oct 21, 2016 11:32
[2016-10-21 13:20] VITALS: BP 133/85
[2016-10-21] MEDS: FEBUXOSTAT 40 MG TABLET (ULORIC) PO SCH (18:19)
[2016-10-21] MEDS: MIRTAZAPINE 7.5MG PER 1/2 TABLET PO SCH (20:05)
[2016-10-21 22:00] VITALS: BP 138/87
[2016-10-22] MEDS: IPRATROPIUM 0.5MG/ALBUTEROL 2.5MG INH SOL UD 3ML (DUONEB)(J7620) NEB SCH ×4 (01:22→20:45)
[2016-10-22] MEDS: PIPERACILLIN/TAZOBACTAM SOD 2.25 GM in D5W MINI-BAG PLUS 50 ML IV SCH ×3 (04:30→20:10)
[2016-10-22 06:00] VITALS: BP 143/79
[2016-10-22 06:06] LABS: BASO # 0.1 K/mm3 (0.0-0.2); BASO % 0.4 % (0.0-1.0); EOS # 0.6 K/mm3 (0.0-0.50); EOS % 4.9 % (0.0-3.0); LARGE UNSTAINED CELL # 0.2 K/mm3 (0.0-0.4); LARGE UNSTAINED CELL % 1.5 % (0.0-4.0); LYMPH # 0.9 K/mm3 (1.5-4.5); LYMPH % 5.9 % (24.0-44.0); MEAN CORPUSCULAR HEMOGLOBIN 31.6 pg (27.0-33.0); MEAN CORPUSCULAR HGB CONC 34.7 g/dl (32.0-36.5); MONO # 0.4 K/mm3 (0.0-0.8); MONO % 3.5 % (0.0-5.0); NEUTROPHILS # 10.6 K/mm3 (1.8-7.7); NEUTROPHILS % 83.8 % (36.0-66.0); PLATELET COUNT, AUTOMATED 265 k/mm3 (150-450); RED CELL DISTRIBUTION WIDTH 12.3 % (11.5-14.5); WHITE BLOOD COUNT 12.6 K/mm3 (4.0-10.0)
[2016-10-22 06:29] LABS: ALBUMIN 2.2 GM/DL (3.2-5.2); ALBUMIN/GLOBULIN RATIO 0.49 (1.00-1.93); BILIRUBIN,TOTAL 0.8 MG/DL (0.2-1.0); CALCIUM LEVEL 8.2 MG/DL (8.8-10.2); CREATININE FOR GFR 2.25 MG/DL (0.55-1.02); GLOMERULAR FILTRATION RATE 21.9 (>32); POTASSIUM SERUM 3.7 MEQ/L (3.5-5.1); TOTAL PROTEIN 6.7 GM/DL (6.4-8.2)
[2016-10-22] MEDS: POTASSIUM CHLORIDE 10 MEQ SR TABLET PO SCH (09:35)
[2016-10-22] MEDS: amLODIPine 10 MG TAB PO SCH (09:36)
[2016-10-22] MEDS: ATENOLOL 12.5MG PER 1/2 TABLET PO SCH (09:36)
[2016-10-22] MEDS: APIXABAN 2.5 MG TAB (ELIQUIS) PO SCH ×2 (09:37→20:10)
[2016-10-22] MEDS: NYSTATIN 100,000 UNITS/GM TOPICAL PWD 15 GM TOP SCH ×2 (09:37→20:10)
[2016-10-22] MEDS: VANCOMYCIN HCL 500 MG in D5W MINI-BAG PLUS 100 ML IV SCH (13:51)
[2016-10-22 14:00] VITALS: BP 159/72
--- NOTE | 2016-10-22 14:10 | IPNPDOC ---
Text Note Date of Service The patient was seen on 10/22/16. NOTE Subjective: Pt states SOB has improved. Denies CP/Palpitations. Objective: Vitals: (see below) General: No acute distress, laying comfortably in bed. HEENT: Dry mucous membranes. Neck: No JVD or lymphadenopathy Cardiac: RRR, No murmurs Pulm: Coarse crackles b/l, mild exp wheezing/ rhonchi Abd: NT/ND + BS Ext: Trace edema BLE. No cyanosis Labs (see below) Images: Abd X-ray 10/21/16- Impression: Nonspecific bowel gas pattern. CXR 10/19/16 Impression: Bilateral infiltrates and effusions (left greater than right) similar to prior examination. Assessment/Plan 1. HCAP - SOB is slightly improving. Not on O2 at home. Cont Vanc/Zosyn. Mucinex. F/u cultures. 2. Acute on Chronic Kidney Disease - D/c diuretics. Baseline Cr 1.8-2.0. Gentle IVF. 3. New onset AF - CHADSVASc 4, on eliquis, atenolol 4. HTN - Cont home meds 5. Loose stools - GI panel pending DVT prophy: On Eliquis VS,Fishbone, I+O VS, Fishbone, I+O Laboratory Tests 10/22/16 05:36 Calcium Level 8.2 L, Aspartate Amino Transf (AST/SGOT) 60 H, Alanine Aminotransferase (ALT/SGPT) 40, Alkaline Phosphatase 100, Total Bilirubin 0.8, Total Protein 6.7, Albumin 2.2 L, Red Blood Count 3.85 L, Mean Corpuscular Volume 91.0, Mean Corpuscular Hemoglobin 31.6, Mean Corpuscular Hemoglobin Concent 34.7, Red Cell Distribution Width 12.3, Neutrophils (%) (Auto) 83.8 H, Lymphocytes (%) (Auto) 5.9 L, Monocytes (%) (Auto) 3.5, Eosinophils (%) (Auto) 4.9 H, Basophils (%) (Auto) 0.4, Neutrophils # (Auto) 10.6 H, Lymphocytes # ( Auto) 0.9 L, Monocytes # (Auto) 0.4, Eosinophils # (Auto) 0.6 H, Basophils # ( Auto) 0.1 Vital Signs Date Time Temp Pulse Resp B/P Pulse Ox O2 Delivery O2 Flow Rate FiO2 10/22/16 09:40 Nasal Cannula 2.0 10/22/16 09:36 61 142/67 10/22/16 06:00 97.1 21 90 10/20/16 20:00 100 I&O- Last 24 Hours up to 6 AM 10/22/16 06:00 Intake Total 970 ml Output Total 0 ml Balance 970 ml SILKE MULLEN MD Oct 22, 2016 14:10
[2016-10-22 15:05] LABS: CALCIUM LEVEL 8.8 MG/DL (8.8-10.2); CREATININE FOR GFR 2.29 MG/DL (0.55-1.02); GLOMERULAR FILTRATION RATE 21.4 (>32); MAGNESIUM LEVEL 2.2 MG/DL (1.8-2.4); POTASSIUM SERUM 3.7 MEQ/L (3.5-5.1)
[2016-10-22] MEDS ORDERED: NS 1,000 ML IV SCH (16:15)
[2016-10-22] MEDS: FEBUXOSTAT 40 MG TABLET (ULORIC) PO SCH (17:02)
[2016-10-22] MEDS: MIRTAZAPINE 7.5MG PER 1/2 TABLET PO SCH (20:09)
[2016-10-22 22:00] VITALS: BP 157/77
[2016-10-23] MEDS: IPRATROPIUM 0.5MG/ALBUTEROL 2.5MG INH SOL UD 3ML (DUONEB)(J7620) NEB SCH ×4 (01:29→19:41)
[2016-10-23] MEDS: PIPERACILLIN/TAZOBACTAM SOD 2.25 GM in D5W MINI-BAG PLUS 50 ML IV SCH ×3 (04:04→20:07)
[2016-10-23 06:00] VITALS: BP 146/74
[2016-10-23 06:08] LABS: BASO % 0.4 % (0.0-1.0); EOS # 0.7 K/mm3 (0.0-0.50); EOS % 5.1 % (0.0-3.0); LARGE UNSTAINED CELL # 0.2 K/mm3 (0.0-0.4); LARGE UNSTAINED CELL % 1.7 % (0.0-4.0); LYMPH # 1.1 K/mm3 (1.5-4.5); LYMPH % 6.7 % (24.0-44.0); MEAN CORPUSCULAR HEMOGLOBIN 30.9 pg (27.0-33.0); MEAN CORPUSCULAR HGB CONC 33.5 g/dl (32.0-36.5); MEAN CORPUSCULAR VOLUME 92.4 fl (80.0-96.0); MONO # 0.5 K/mm3 (0.0-0.8); MONO % 3.6 % (0.0-5.0); NEUTROPHILS # 10.7 K/mm3 (1.8-7.7); NEUTROPHILS % 82.5 % (36.0-66.0); PLATELET COUNT, AUTOMATED 278 k/mm3 (150-450); RED CELL DISTRIBUTION WIDTH 12.3 % (11.5-14.5)
[2016-10-23 06:38] LABS: ALBUMIN 2.7 GM/DL (3.2-5.2); ALBUMIN/GLOBULIN RATIO 0.68 (1.00-1.93); BILIRUBIN,TOTAL 0.9 MG/DL (0.2-1.0); CALCIUM LEVEL 8.2 MG/DL (8.8-10.2); CREATININE FOR GFR 2.16 MG/DL (0.55-1.02); GLOMERULAR FILTRATION RATE 22.9 (>32); MAGNESIUM LEVEL 2.1 MG/DL (1.8-2.4); POTASSIUM SERUM 3.9 MEQ/L (3.5-5.1); TOTAL PROTEIN 6.7 GM/DL (6.4-8.2)
[2016-10-23] MEDS ORDERED: SODIUM CHLORIDE 0.9% 1000 ML IV ONE (08:30)
[2016-10-23] MEDS ORDERED: NS 1,000 ML IV ONE (09:00)
[2016-10-23] MEDS: POTASSIUM CHLORIDE 10 MEQ SR TABLET PO SCH (09:43)
[2016-10-23] MEDS: NYSTATIN 100,000 UNITS/GM TOPICAL PWD 15 GM TOP SCH ×2 (09:44→20:07)
[2016-10-23] MEDS: APIXABAN 2.5 MG TAB (ELIQUIS) PO SCH ×2 (09:44→20:07)
[2016-10-23] MEDS: ATENOLOL 12.5MG PER 1/2 TABLET PO SCH (09:48)
[2016-10-23] MEDS: amLODIPine 10 MG TAB PO SCH (09:49)
--- NOTE | 2016-10-23 14:36 | IPNPDOC ---
Text Note Date of Service The patient was seen on 10/23/16. NOTE Subjective: Pt states SOB has improved. Denies CP/Palpitations. Objective: Vitals: (see below) General: No acute distress, laying comfortably in bed. HEENT: Dry mucous membranes. Neck: No JVD or lymphadenopathy Cardiac: RRR, No murmurs Pulm: Coarse crackles b/l, mild exp wheezing/ rhonchi Abd: NT/ND + BS Ext: Trace edema BLE. No cyanosis Labs (see below) Images: Abd X-ray 10/21/16- Impression: Nonspecific bowel gas pattern. CXR 10/19/16 Impression: Bilateral infiltrates and effusions (left greater than right) similar to prior examination. Assessment/Plan 1. HCAP - SOB is slightly improving. Not on O2 at home. Cont Vanc/Zosyn. Mucinex. F/u cultures. Incentive spirometer 2. Acute on Chronic Kidney Disease - D/c diuretics. Improving. Baseline Cr 1.8- 2.0. Continue gentle IVF hydration. 3. New onset AF - CHADSVASc 4, on eliquis, atenolol 4. HTN - Cont home meds 5. Loose stools - GI panel pending DVT prophy: On Eliquis VS,Fishbone, I+O VS, Fishbone, I+O Laboratory Tests 10/23/16 05:27 Calcium Level 8.2 L, Aspartate Amino Transf (AST/SGOT) 89 H, Alanine Aminotransferase (ALT/SGPT) 62, Alkaline Phosphatase 104, Total Bilirubin 0.9, Total Protein 6.7, Albumin 2.7 #L 10/23/16 05:28 Red Blood Count 3.71 L, Mean Corpuscular Volume 92.4, Mean Corpuscular Hemoglobin 30.9, Mean Corpuscular Hemoglobin Concent 33.5, Red Cell Distribution Width 12.3, Neutrophils (%) (Auto) 82.5 H, Lymphocytes (%) (Auto) 6.7 L, Monocytes (%) (Auto) 3.6, Eosinophils (%) (Auto) 5.1 H, Basophils (%) ( Auto) 0.4, Neutrophils # (Auto) 10.7 H, Lymphocytes # (Auto) 1.1 L, Monocytes # (Auto) 0.5, Eosinophils # (Auto) 0.7 H, Basophils # (Auto) 0.0 Vital Signs Date Time Temp Pulse Resp B/P Pulse Ox O2 Delivery O2 Flow Rate FiO2 10/23/16 09:49 73 146/70 10/23/16 06:00 97.5 21 91 High Flow Cannula 2.0 10/20/16 20:00 100 I&O- Last 24 Hours up to 6 AM 10/23/16 05:59 Intake Total 1170 ml Output Total 0 ml Balance 1170 ml SILKE MULLEN MD Oct 23, 2016 14:35
[2016-10-23] MEDS: FEBUXOSTAT 40 MG TABLET (ULORIC) PO SCH (17:43)
[2016-10-23] MEDS: MIRTAZAPINE 7.5MG PER 1/2 TABLET PO SCH (20:07)
[2016-10-23 22:00] VITALS: BP 148/68
[2016-10-24] MEDS: IPRATROPIUM 0.5MG/ALBUTEROL 2.5MG INH SOL UD 3ML (DUONEB)(J7620) NEB SCH ×4 (01:24→20:00)
[2016-10-24] MEDS: PIPERACILLIN/TAZOBACTAM SOD 2.25 GM in D5W MINI-BAG PLUS 50 ML IV SCH ×3 (03:12→20:05)
[2016-10-24 06:00] VITALS: BP 140/84
[2016-10-24 06:18] LABS: BASO % 0.4 % (0.0-1.0); EOS # 0.3 K/mm3 (0.0-0.50); EOS % 2.2 % (0.0-3.0); LARGE UNSTAINED CELL # 0.2 K/mm3 (0.0-0.4); LARGE UNSTAINED CELL % 1.3 % (0.0-4.0); LYMPH # 0.8 K/mm3 (1.5-4.5); LYMPH % 3.9 % (24.0-44.0); MEAN CORPUSCULAR HEMOGLOBIN 31.2 pg (27.0-33.0); MEAN CORPUSCULAR HGB CONC 33.4 g/dl (32.0-36.5); MEAN CORPUSCULAR VOLUME 93.3 fl (80.0-96.0); MONO # 0.5 K/mm3 (0.0-0.8); MONO % 3.6 % (0.0-5.0); NEUTROPHILS # 13.5 K/mm3 (1.8-7.7); NEUTROPHILS % 88.7 % (36.0-66.0); PLATELET COUNT, AUTOMATED 292 k/mm3 (150-450); RED CELL DISTRIBUTION WIDTH 12.5 % (11.5-14.5); WHITE BLOOD COUNT 15.2 K/mm3 (4.0-10.0)
[2016-10-24 06:38] LABS: ALBUMIN 2.6 GM/DL (3.2-5.2); ALBUMIN/GLOBULIN RATIO 0.63 (1.00-1.93); BILIRUBIN,TOTAL 0.8 MG/DL (0.2-1.0); CALCIUM LEVEL 8.1 MG/DL (8.8-10.2); CREATININE FOR GFR 2.09 MG/DL (0.55-1.02); GLOMERULAR FILTRATION RATE 23.8 (>32); MAGNESIUM LEVEL 2.1 MG/DL (1.8-2.4); POTASSIUM SERUM 4.6 MEQ/L (3.5-5.1); TOTAL PROTEIN 6.7 GM/DL (6.4-8.2)
[2016-10-24] MEDS ORDERED: NS 500 ML IV SCH (08:45)
[2016-10-24] MEDS: amLODIPine 10 MG TAB PO SCH (09:46)
[2016-10-24] MEDS: POTASSIUM CHLORIDE 10 MEQ SR TABLET PO SCH (09:46)
[2016-10-24] MEDS: ATENOLOL 12.5MG PER 1/2 TABLET PO SCH (09:46)
[2016-10-24] MEDS: APIXABAN 2.5 MG TAB (ELIQUIS) PO SCH ×2 (09:46→20:06)
[2016-10-24] MEDS: NYSTATIN 100,000 UNITS/GM TOPICAL PWD 15 GM TOP SCH ×2 (09:47→20:06)
--- NOTE | 2016-10-24 10:23 | REP ---
Clinical: Hypoxia and shortness of breath. Rule out infiltrate. Findings: Large bilateral pleural effusions along with moderate lower lobe atelectasis/consolidations and scattered perihilar opacities extending into the bilateral lung ram including cardiomegaly and prominent pulmonary vasculature with cephalization suggests CHF and pulmonary edema. Underlying pneumonia cannot be excluded. There is no pneumothorax. Atherosclerotic changes of the coronary arteries and thoracic aorta noted along with atherosclerotic changes to the splenic artery in the upper abdomen. Normal bilateral adrenal glands identified. Impression: Findings compatible with CHF and pulmonary edema including pulmonary vascular congestion with cephalization, large bilateral pleural effusions, lower lobe consolidation/atelectasis and scattered infiltrates. Underlying pneumonia cannot be excluded. Signed by Jeff Goodwin MD 10/24/2016 10:14 A
[2016-10-24] MEDS ORDERED: MORPHINE 2 MG/ML 1ML SYRINGE IV ONE (11:15)
[2016-10-24] MEDS ORDERED: FUROSEMIDE 40 MG/4 ML VIAL (J1940) IV ONE (11:15)
[2016-10-24 14:00] VITALS: BP 173/74
[2016-10-24] MEDS: VANCOMYCIN HCL 500 MG in D5W MINI-BAG PLUS 100 ML IV SCH (14:20)
[2016-10-24 14:30] VITALS: BP 148/82
--- NOTE | 2016-10-24 15:16 | IPNPDOC ---
Text Note Date of Service The patient was seen on 10/24/16. NOTE Subjective: Pt had increased SOB and orthopnea, required 5L NC. Denies CP/ Palpitations. Objective: Vitals: (see below) General: No acute distress, laying comfortably in bed. HEENT: Dry mucous membranes. Neck: No JVD or lymphadenopathy Cardiac: RRR, No murmurs Pulm: Coarse crackles b/l, mild exp wheezing/ rhonchi Abd: NT/ND + BS Ext: Trace edema BLE. No cyanosis Labs (see below) Images: Abd X-ray 10/21/16- Impression: Nonspecific bowel gas pattern. CXR 10/19/16 Impression: Bilateral infiltrates and effusions (left greater than right) similar to prior examination. Assessment/Plan 1. HCAP - SOB is slightly improving. Not on O2 at home. Cont Vanc/Zosyn. Mucinex. F/u cultures. Incentive spirometer 2. Acute on Chronic Kidney Disease - Improving. Baseline Cr 1.8-2.0. IVF d/c given fluid overload. Back on Lasix. 2. Acute Decompensated Diastolic HF - Off IVF. Lasix BID started. Symptoms improved this afternoon after lasix. 3. New onset AF - CHADSVASc 4, on eliquis, atenolol 4. HTN - Cont home meds 5. Loose stools - GI panel pending DVT prophy: On Eliquis VS,Fishbone, I+O VS, Fishbone, I+O Laboratory Tests 10/24/16 06:01 Calcium Level 8.1 L, Aspartate Amino Transf (AST/SGOT) 104 H, Alanine Aminotransferase (ALT/SGPT) 82 H, Alkaline Phosphatase 99, Total Bilirubin 0.8, Total Protein 6.7, Albumin 2.6 L, Red Blood Count 3.76 L, Mean Corpuscular Volume 93.3, Mean Corpuscular Hemoglobin 31.2, Mean Corpuscular Hemoglobin Concent 33.4, Red Cell Distribution Width 12.5, Neutrophils (%) (Auto) 88.7 H, Lymphocytes (%) (Auto) 3.9 L, Monocytes (%) (Auto) 3.6, Eosinophils (%) (Auto) 2.2, Basophils (%) (Auto) 0.4, Neutrophils # (Auto) 13.5 H, Lymphocytes # (Auto ) 0.8 L, Monocytes # (Auto) 0.5, Eosinophils # (Auto) 0.3, Basophils # (Auto) 0.0 Vital Signs Date Time Temp Pulse Resp B/P Pulse Ox O2 Delivery O2 Flow Rate FiO2 10/24/16 12:09 18 Nasal Cannula 5.0 10/24/16 09:46 87 150/78 10/24/16 06:00 96.1 91 10/20/16 20:00 100 I&O- Last 24 Hours up to 6 AM 10/24/16 06:00 Intake Total 2220 ml Output Total 1 ml Balance 2219 ml SILKE MULLEN MD Oct 24, 2016 15:16
[2016-10-24] MEDS ORDERED: FUROSEMIDE 40 MG/4 ML VIAL (J1940) IV SCH (17:00)
[2016-10-24] MEDS: FEBUXOSTAT 40 MG TABLET (ULORIC) PO SCH (17:48)
[2016-10-24] MEDS: MIRTAZAPINE 7.5MG PER 1/2 TABLET PO SCH (20:05)
[2016-10-24 22:00] VITALS: BP 144/77
[2016-10-25] MEDS: IPRATROPIUM 0.5MG/ALBUTEROL 2.5MG INH SOL UD 3ML (DUONEB)(J7620) NEB SCH ×4 (01:44→20:00)
[2016-10-25] MEDS: PIPERACILLIN/TAZOBACTAM SOD 2.25 GM in D5W MINI-BAG PLUS 50 ML IV SCH ×3 (03:49→20:11)
[2016-10-25 06:00] VITALS: BP 158/82
[2016-10-25 06:10] LABS: BASO % 0.3 % (0.0-1.0); EOS # 0.6 K/mm3 (0.0-0.50); EOS % 4.9 % (0.0-3.0); LARGE UNSTAINED CELL # 0.1 K/mm3 (0.0-0.4); LARGE UNSTAINED CELL % 0.9 % (0.0-4.0); LYMPH # 0.9 K/mm3 (1.5-4.5); LYMPH % 5.7 % (24.0-44.0); MEAN CORPUSCULAR HEMOGLOBIN 31.5 pg (27.0-33.0); MEAN CORPUSCULAR HGB CONC 33.6 g/dl (32.0-36.5); MEAN CORPUSCULAR VOLUME 93.7 fl (80.0-96.0); MONO # 0.5 K/mm3 (0.0-0.8); MONO % 3.4 % (0.0-5.0); NEUTROPHILS % 84.7 % (36.0-66.0); PLATELET COUNT, AUTOMATED 301 k/mm3 (150-450); RED CELL DISTRIBUTION WIDTH 12.7 % (11.5-14.5)
[2016-10-25 06:37] LABS: ALBUMIN 2.5 GM/DL (3.2-5.2); ALBUMIN/GLOBULIN RATIO 0.52 (1.00-1.93); BILIRUBIN,TOTAL 0.8 MG/DL (0.2-1.0); CALCIUM LEVEL 8.7 MG/DL (8.8-10.2); CREATININE FOR GFR 2.16 MG/DL (0.55-1.02); GLOMERULAR FILTRATION RATE 22.9 (>32); POTASSIUM SERUM 4.7 MEQ/L (3.5-5.1); TOTAL PROTEIN 7.3 GM/DL (6.4-8.2)
[2016-10-25] MEDS: POTASSIUM CHLORIDE 10 MEQ SR TABLET PO SCH (08:51)
[2016-10-25] MEDS: APIXABAN 2.5 MG TAB (ELIQUIS) PO SCH ×2 (08:51→20:11)
[2016-10-25] MEDS: amLODIPine 10 MG TAB PO SCH (08:51)
[2016-10-25] MEDS: ATENOLOL 12.5MG PER 1/2 TABLET PO SCH (08:51)
[2016-10-25] MEDS: FUROSEMIDE 40 MG/4 ML VIAL (J1940) IV SCH ×4 (10:13→20:11)
[2016-10-25] MEDS: NYSTATIN 100,000 UNITS/GM TOPICAL PWD 15 GM TOP SCH ×2 (10:13→20:11)
[2016-10-25 14:00] VITALS: BP 133/92
[2016-10-25] MEDS: VANCOMYCIN HCL 500 MG in D5W MINI-BAG PLUS 100 ML IV SCH (14:27)
--- NOTE | 2016-10-25 14:54 | IPNPDOC ---
Text Note Date of Service The patient was seen on 10/25/16. NOTE Subjective: Pt states she does not have any SOB, however required 6L O2. Denies CP/Palpitations. Objective: Vitals: (see below) General: No acute distress, laying comfortably in bed. HEENT: Dry mucous membranes. Neck: No JVD or lymphadenopathy Cardiac: RRR, No murmurs Pulm: Coarse crackles b/l, mild exp wheezing/ rhonchi Abd: NT/ND + BS Ext: Trace edema BLE. No cyanosis Labs (see below) Images: Abd X-ray 10/21/16- Impression: Nonspecific bowel gas pattern. CXR 10/19/16 Impression: Bilateral infiltrates and effusions (left greater than right) similar to prior examination. Assessment/Plan 1. HCAP - SOB is slightly improving. Not on O2 at home. Cont Vanc/Zosyn. Mucinex. F/u cultures. Incentive spirometer 2. Acute on Chronic Kidney Disease - Improving. Baseline Cr 1.8-2.0. IVF d/c given fluid overload. Back on Lasix. 2. Acute Decompensated Diastolic HF - Off IVF. Willson inserted for strict I/O. Lasix 40mg q4h. 3. New onset AF - CHADSVASc 4, on eliquis, atenolol 4. HTN - Cont home meds 5. Loose stools - resolved. GI panel negative. DVT prophy: On Eliquis VS,Fishbone, I+O VS, Fishbone, I+O Laboratory Tests 10/25/16 05:35 Calcium Level 8.7 L, Aspartate Amino Transf (AST/SGOT) 87 H, Alanine Aminotransferase (ALT/SGPT) 81 H, Alkaline Phosphatase 110, Total Bilirubin 0.8 , Total Protein 7.3, Albumin 2.5 L, Red Blood Count 3.75 L, Mean Corpuscular Volume 93.7, Mean Corpuscular Hemoglobin 31.5, Mean Corpuscular Hemoglobin Concent 33.6, Red Cell Distribution Width 12.7, Neutrophils (%) (Auto) 84.7 H, Lymphocytes (%) (Auto) 5.7 L, Monocytes (%) (Auto) 3.4, Eosinophils (%) (Auto) 4.9 H, Basophils (%) (Auto) 0.3, Neutrophils # (Auto) 11.0 H, Lymphocytes # ( Auto) 0.9 L, Monocytes # (Auto) 0.5, Eosinophils # (Auto) 0.6 H, Basophils # ( Auto) 0.0 Vital Signs Date Time Temp Pulse Resp B/P Pulse Ox O2 Delivery O2 Flow Rate FiO2 10/25/16 09:20 Nasal Cannula 6.0 10/25/16 08:51 92 169/78 10/25/16 06:00 97.5 16 92 10/20/16 20:00 100 I&O- Last 24 Hours up to 6 AM 10/25/16 06:00 Intake Total 1290 ml Output Total 0 ml Balance 1290 ml SILKE MULLEN MD Oct 25, 2016 14:54
[2016-10-25] MEDS: FEBUXOSTAT 40 MG TABLET (ULORIC) PO SCH (17:30)
[2016-10-25] MEDS: MIRTAZAPINE 7.5MG PER 1/2 TABLET PO SCH (20:11)
[2016-10-25 22:00] VITALS: BP 152/74
[2016-10-25] MEDS: ACETAMINOPHEN TAB 650MG DOSE (2X325MG) PO PRN (22:10)
[2016-10-26] MEDS: FUROSEMIDE 40 MG/4 ML VIAL (J1940) IV SCH ×6 (01:22→20:04)
[2016-10-26] MEDS: IPRATROPIUM 0.5MG/ALBUTEROL 2.5MG INH SOL UD 3ML (DUONEB)(J7620) NEB SCH ×4 (01:49→20:25)
[2016-10-26] MEDS: PIPERACILLIN/TAZOBACTAM SOD 2.25 GM in D5W MINI-BAG PLUS 50 ML IV SCH ×3 (04:39→20:08)
[2016-10-26 05:38] LABS: BASO % 0.4 % (0.0-1.0); EOS # 0.6 K/mm3 (0.0-0.50); EOS % 5.5 % (0.0-3.0); LARGE UNSTAINED CELL # 0.3 K/mm3 (0.0-0.4); LARGE UNSTAINED CELL % 2.6 % (0.0-4.0); LYMPH # 0.9 K/mm3 (1.5-4.5); LYMPH % 8.2 % (24.0-44.0); MEAN CORPUSCULAR HEMOGLOBIN 30.5 pg (27.0-33.0); MEAN CORPUSCULAR HGB CONC 32.9 g/dl (32.0-36.5); MEAN CORPUSCULAR VOLUME 92.8 fl (80.0-96.0); MONO # 0.4 K/mm3 (0.0-0.8); MONO % 3.8 % (0.0-5.0); NEUTROPHILS # 8.2 K/mm3 (1.8-7.7); NEUTROPHILS % 79.4 % (36.0-66.0); PLATELET COUNT, AUTOMATED 298 k/mm3 (150-450); RED CELL DISTRIBUTION WIDTH 12.6 % (11.5-14.5); WHITE BLOOD COUNT 10.3 K/mm3 (4.0-10.0)
[2016-10-26 05:56] LABS: ALBUMIN 2.4 GM/DL (3.2-5.2); ALBUMIN/GLOBULIN RATIO 0.52 (1.00-1.93); BILIRUBIN,TOTAL 0.8 MG/DL (0.2-1.0); CALCIUM LEVEL 8.7 MG/DL (8.8-10.2); CREATININE FOR GFR 2.44 MG/DL (0.55-1.02); GLOMERULAR FILTRATION RATE 19.9 (>32); MAGNESIUM LEVEL 1.9 MG/DL (1.8-2.4); POTASSIUM SERUM 4.1 MEQ/L (3.5-5.1)
[2016-10-26 06:00] VITALS: BP 154/69
[2016-10-26 08:30] VITALS: BP 142/64
[2016-10-26] MEDS: POTASSIUM CHLORIDE 10 MEQ SR TABLET PO SCH (08:35)
[2016-10-26] MEDS: APIXABAN 2.5 MG TAB (ELIQUIS) PO SCH ×2 (08:36→20:08)
[2016-10-26] MEDS: amLODIPine 10 MG TAB PO SCH (08:43)
[2016-10-26] MEDS: NYSTATIN 100,000 UNITS/GM TOPICAL PWD 15 GM TOP SCH ×2 (08:44→20:08)
[2016-10-26] MEDS: ATENOLOL 12.5MG PER 1/2 TABLET PO SCH (08:44)
[2016-10-26] MEDS ORDERED: MORPHINE 2 MG/ML 1ML SYRINGE IV ONE (09:00)
[2016-10-26 09:32] LABS: ABG BASE EXCESS 4.7 (-2.0-2.0); ABG HCO3 27.8 MEQ/L (22.0-26.0); ABG PARTIAL PRESSURE CO2 36.1 mmHg (35.0-45.0); ABG PARTIAL PRESSURE O2 74.8 mmHg (75.0-100.0); ABG STANDARD HCO3 28.6 MEQ/L (22.0-26.0); ABG TOTAL CO2 28.9 MEQ/L (23.0-31.0); ABG pH (ARTERIAL) 7.504 UNITS (7.350-7.450)
[2016-10-26] MEDS: NITROGLYCERIN 2% OINT 1 GM *U/D* PKT TOP SCH ×3 (10:19→20:07)
[2016-10-26] MEDS: SODIUM CHLORIDE NASAL 0.65% SPRAY BTL (OCEAN) SCH ×3 (10:58→20:08)
--- NOTE | 2016-10-26 11:03 | IPNPDOC ---
Text Note Date of Service The patient was seen on 10/26/16. NOTE Subjective: Pt states she does not have any SOB, however required 6L O2. Has an upset stomach. Denies CP/Palpitations. Objective: Vitals: (see below) General: No acute distress, laying comfortably in bed. HEENT: Dry mucous membranes. Neck: No JVD or lymphadenopathy Cardiac: RRR, No murmurs Pulm: Coarse crackles b/l, mild exp wheezing/ rhonchi Abd: NT/ND + BS Ext: Trace edema BLE. No cyanosis Labs (see below) Images: Abd X-ray 10/21/16- Impression: Nonspecific bowel gas pattern. CXR 10/19/16 Impression: Bilateral infiltrates and effusions (left greater than right) similar to prior examination. Assessment/Plan 1. HCAP - SOB is slightly improving. Not on O2 at home. Cont Vanc/Zosyn. Mucinex. F/u cultures. Incentive spirometer 2. Acute on Chronic Kidney Disease - Improving. Baseline Cr 1.8-2.0. IVF d/c given fluid overload. Back on Lasix. 2. Acute Decompensated Diastolic HF - Off IVF. Willson inserted for strict I/O. Lasix 40mg q4h. Nitro patch q6h, Morphine IV x1. 3. New onset AF - CHADSVASc 4, on eliquis, atenolol 4. HTN - Cont home meds 5. Loose stools - resolved. GI panel negative. DVT prophy: On Eliquis VS,Fishbone, I+O VS, Fishbone, I+O Laboratory Tests 10/26/16 04:52 Calcium Level 8.7 L, Aspartate Amino Transf (AST/SGOT) 82 H, Alanine Aminotransferase (ALT/SGPT) 76, Alkaline Phosphatase 96, Total Bilirubin 0.8, Total Protein 7.0, Albumin 2.4 L, Red Blood Count 3.80 L, Mean Corpuscular Volume 92.8, Mean Corpuscular Hemoglobin 30.5, Mean Corpuscular Hemoglobin Concent 32.9, Red Cell Distribution Width 12.6, Neutrophils (%) (Auto) 79.4 H, Lymphocytes (%) (Auto) 8.2 L, Monocytes (%) (Auto) 3.8, Eosinophils (%) (Auto) 5.5 H, Basophils (%) (Auto) 0.4, Neutrophils # (Auto) 8.2 H, Lymphocytes # (Auto ) 0.9 L, Monocytes # (Auto) 0.4, Eosinophils # (Auto) 0.6 H, Basophils # (Auto) 0.0 Vital Signs Date Time Temp Pulse Resp B/P Pulse Ox O2 Delivery O2 Flow Rate FiO2 10/26/16 10:19 142/64 10/26/16 10:19 20 10/26/16 08:44 73 10/26/16 06:00 98.0 95 High Flow Cannula 6.0 10/20/16 20:00 100 I&O- Last 24 Hours up to 6 AM 10/26/16 06:00 Intake Total 1310 ml Output Total 3400 ml Balance -2090 ml SILKE MULLEN MD Oct 26, 2016 11:03
[2016-10-26 14:00] VITALS: BP 137/78
[2016-10-26] MEDS: FEBUXOSTAT 40 MG TABLET (ULORIC) PO SCH (17:15)
[2016-10-26] MEDS: ONDANSETRON 4MG/2ML VIAL (J2405) IV PRN (18:29)
[2016-10-26] MEDS: MIRTAZAPINE 7.5MG PER 1/2 TABLET PO SCH (20:08)
[2016-10-26 22:00] VITALS: BP 146/65
[2016-10-27] MEDS: IPRATROPIUM 0.5MG/ALBUTEROL 2.5MG INH SOL UD 3ML (DUONEB)(J7620) NEB SCH ×4 (01:23→20:30)
[2016-10-27] MEDS: FUROSEMIDE 40 MG/4 ML VIAL (J1940) IV SCH ×2 (01:57→04:18)
[2016-10-27] MEDS: NITROGLYCERIN 2% OINT 1 GM *U/D* PKT TOP SCH (02:04)
[2016-10-27] MEDS: PIPERACILLIN/TAZOBACTAM SOD 2.25 GM in D5W MINI-BAG PLUS 50 ML IV SCH ×3 (04:18→20:33)
[2016-10-27 06:00] VITALS: BP 127/60
[2016-10-27 06:01] LABS: BASO % 0.2 % (0.0-1.0); EOS # 0.5 K/mm3 (0.0-0.50); EOS % 5.6 % (0.0-3.0); LARGE UNSTAINED CELL # 0.3 K/mm3 (0.0-0.4); LARGE UNSTAINED CELL % 2.9 % (0.0-4.0); LYMPH # 0.8 K/mm3 (1.5-4.5); LYMPH % 8.7 % (24.0-44.0); MEAN CORPUSCULAR HEMOGLOBIN 30.4 pg (27.0-33.0); MEAN CORPUSCULAR HGB CONC 32.7 g/dl (32.0-36.5); MEAN CORPUSCULAR VOLUME 92.9 fl (80.0-96.0); MONO # 0.4 K/mm3 (0.0-0.8); MONO % 3.6 % (0.0-5.0); NEUTROPHILS # 7.6 K/mm3 (1.8-7.7); PLATELET COUNT, AUTOMATED 276 k/mm3 (150-450); RED CELL DISTRIBUTION WIDTH 12.4 % (11.5-14.5); WHITE BLOOD COUNT 9.7 K/mm3 (4.0-10.0)
[2016-10-27 06:18] LABS: ALBUMIN 2.4 GM/DL (3.2-5.2); ALBUMIN/GLOBULIN RATIO 0.5 (1.00-1.93); BILIRUBIN,TOTAL 0.6 MG/DL (0.2-1.0); CALCIUM LEVEL 8.8 MG/DL (8.8-10.2); CREATININE FOR GFR 2.81 MG/DL (0.55-1.02); GLOMERULAR FILTRATION RATE 16.9 (>32); MAGNESIUM LEVEL 1.9 MG/DL (1.8-2.4); TOTAL PROTEIN 7.2 GM/DL (6.4-8.2)
[2016-10-27] MEDS: POTASSIUM CHLORIDE 10 MEQ SR TABLET PO SCH (09:51)
[2016-10-27] MEDS: APIXABAN 2.5 MG TAB (ELIQUIS) PO SCH ×2 (09:51→20:33)
[2016-10-27] MEDS: ISOSORBIDE MON. (IMDUR) 30 MG XR TAB PO SCH (09:53)
[2016-10-27] MEDS: amLODIPine 10 MG TAB PO SCH (09:53)
[2016-10-27] MEDS: ATENOLOL 12.5MG PER 1/2 TABLET PO SCH (09:54)
[2016-10-27] MEDS: SODIUM CHLORIDE NASAL 0.65% SPRAY BTL (OCEAN) SCH ×3 (09:54→20:33)
[2016-10-27] MEDS: NYSTATIN 100,000 UNITS/GM TOPICAL PWD 15 GM TOP SCH ×2 (09:55→20:33)
--- NOTE | 2016-10-27 12:40 | IPNPDOC ---
Text Note Date of Service The patient was seen on 10/27/16. NOTE Subjective: Pt states she does not have any SOB, however required 6L O2. Has an upset stomach. Denies CP/Palpitations. Objective: Vitals: (see below) General: No acute distress, laying comfortably in bed. HEENT: Dry mucous membranes. Neck: No JVD or lymphadenopathy Cardiac: RRR, No murmurs Pulm: Coarse crackles b/l, mild exp wheezing/ rhonchi Abd: NT/ND + BS Ext: Trace edema BLE. No cyanosis Labs (see below) Images: Abd X-ray 10/21/16- Impression: Nonspecific bowel gas pattern. CXR 10/19/16 Impression: Bilateral infiltrates and effusions (left greater than right) similar to prior examination. Assessment/Plan 1. HCAP - SOB is slightly improving. Not on O2 at home. Cont Vanc/Zosyn. Mucinex. F/u cultures. Incentive spirometer 2. Acute on Chronic Kidney Disease - Improving. Baseline Cr 1.8-2.0. IVF d/c given fluid overload. Back on Lasix. 2. Acute Decompensated Diastolic HF - Off IVF. Willson inserted for strict I/O. Diuresed well. Lasix on hold given worsening renal function. Imdur started. 3. New onset AF - CHADSVASc 4, on eliquis, atenolol 4. HTN - Cont home meds 5. Loose stools - resolved. GI panel negative. DVT prophy: On Eliquis VS,Fishbone, I+O VS, Fishbone, I+O Laboratory Tests 10/27/16 05:32 Calcium Level 8.8, Aspartate Amino Transf (AST/SGOT) 69 H, Alanine Aminotransferase (ALT/SGPT) 68, Alkaline Phosphatase 94, Total Bilirubin 0.6, Total Protein 7.2, Albumin 2.4 L, Red Blood Count 3.88 L, Mean Corpuscular Volume 92.9, Mean Corpuscular Hemoglobin 30.4, Mean Corpuscular Hemoglobin Concent 32.7, Red Cell Distribution Width 12.4, Neutrophils (%) (Auto) 79.0 H, Lymphocytes (%) (Auto) 8.7 L, Monocytes (%) (Auto) 3.6, Eosinophils (%) (Auto) 5.6 H, Basophils (%) (Auto) 0.2, Neutrophils # (Auto) 7.6, Lymphocytes # (Auto) 0.8 L, Monocytes # (Auto) 0.4, Eosinophils # (Auto) 0.5, Basophils # (Auto) 0.0 Vital Signs Date Time Temp Pulse Resp B/P Pulse Ox O2 Delivery O2 Flow Rate FiO2 10/27/16 10:00 Nasal Cannula 4.0 10/27/16 09:55 92 10/27/16 09:54 102 149/95 10/27/16 06:00 98.5 19 I&O- Last 24 Hours up to 6 AM 10/27/16 06:00 Intake Total 1170 ml Output Total 3225 ml Balance -2055 ml SILKE MULLEN MD Oct 27, 2016 12:40
[2016-10-27] MEDS: MIRALAX *UNIT DOSE* 17GM PACKET PO SCH ×2 (13:52→20:05)
[2016-10-27] MEDS: DOCUSATE SODIUM 100 MG CAP PO SCH ×2 (13:52→20:05)
[2016-10-27 14:00] VITALS: BP 133/62
[2016-10-27] MEDS: VANCOMYCIN HCL 500 MG in D5W MINI-BAG PLUS 100 ML IV SCH (14:09)
[2016-10-27] MEDS: ACETAMINOPHEN TAB 650MG DOSE (2X325MG) PO PRN (14:54)
[2016-10-27] MEDS: ONDANSETRON 4MG/2ML VIAL (J2405) IV PRN (14:54)
--- NOTE | 2016-10-27 15:52 | REP ---
Clinical: Altered mental status. Comparison: 08/23/2016 . Findings: Age-related atrophy and microvascular ischemic changes are appreciated including periventricular leukomalacia. The ventricles and sulci are symmetric. Suarez-white differentiation is maintained. There is no evidence for acute intracranial hemorrhage, mass/mass effect, pathology or infarction. No extra-axial fluid collection. Calvarium is intact. Paranasal sinuses and mastoid air cells are clear. Impression: Age related atrophy and microvascular ischemic changes. No acute intracranial hemorrhage, infarction, or mass/mass effect. Signed by Jeff Goodwin MD 10/27/2016 03:43 P
[2016-10-27] MEDS: FEBUXOSTAT 40 MG TABLET (ULORIC) PO SCH (17:44)
[2016-10-27 17:54] LABS: ABG BASE EXCESS 7.6 (-2.0-2.0); ABG HCO3 31.9 MEQ/L (22.0-26.0); ABG PARTIAL PRESSURE CO2 43.5 mmHg (35.0-45.0); ABG PARTIAL PRESSURE O2 128.3 mmHg (75.0-100.0); ABG STANDARD HCO3 31.5 MEQ/L (22.0-26.0); ABG TOTAL CO2 33.2 MEQ/L (23.0-31.0); ABG pH (ARTERIAL) 7.483 UNITS (7.350-7.450)
[2016-10-27] MEDS: MIRTAZAPINE 7.5MG PER 1/2 TABLET PO SCH (20:33)
[2016-10-27 22:00] VITALS: BP 123/65
[2016-10-28] MEDS: IPRATROPIUM 0.5MG/ALBUTEROL 2.5MG INH SOL UD 3ML (DUONEB)(J7620) NEB SCH ×4 (02:00→20:20)
[2016-10-28] MEDS: PIPERACILLIN/TAZOBACTAM SOD 2.25 GM in D5W MINI-BAG PLUS 50 ML IV SCH ×3 (04:55→20:49)
[2016-10-28 06:00] VITALS: BP 169/74
[2016-10-28 06:07] LABS: BASO % 0.2 % (0.0-1.0); EOS # 0.7 K/mm3 (0.0-0.50); EOS % 6.4 % (0.0-3.0); LARGE UNSTAINED CELL # 0.3 K/mm3 (0.0-0.4); LARGE UNSTAINED CELL % 2.8 % (0.0-4.0); LYMPH # 0.9 K/mm3 (1.5-4.5); LYMPH % 8.8 % (24.0-44.0); MEAN CORPUSCULAR HGB CONC 32.6 g/dl (32.0-36.5); MEAN CORPUSCULAR VOLUME 92.2 fl (80.0-96.0); MONO # 0.4 K/mm3 (0.0-0.8); NEUTROPHILS # 8.1 K/mm3 (1.8-7.7); NEUTROPHILS % 77.8 % (36.0-66.0); PLATELET COUNT, AUTOMATED 253 k/mm3 (150-450); RED CELL DISTRIBUTION WIDTH 12.3 % (11.5-14.5); WHITE BLOOD COUNT 10.4 K/mm3 (4.0-10.0)
[2016-10-28 06:23] LABS: ALBUMIN 2.3 GM/DL (3.2-5.2); ALBUMIN/GLOBULIN RATIO 0.48 (1.00-1.93); BILIRUBIN,TOTAL 0.6 MG/DL (0.2-1.0); CALCIUM LEVEL 8.4 MG/DL (8.8-10.2); CREATININE FOR GFR 3.35 MG/DL (0.55-1.02); GLOMERULAR FILTRATION RATE 13.8 (>32); MAGNESIUM LEVEL 1.9 MG/DL (1.8-2.4); POTASSIUM SERUM 3.9 MEQ/L (3.5-5.1); TOTAL PROTEIN 7.1 GM/DL (6.4-8.2)
[2016-10-28] MEDS: DOCUSATE SODIUM 100 MG CAP PO SCH ×2 (09:00→20:13)
[2016-10-28] MEDS: APIXABAN 2.5 MG TAB (ELIQUIS) PO SCH ×2 (09:00→20:49)
[2016-10-28] MEDS: ATENOLOL 12.5MG PER 1/2 TABLET PO SCH (09:51)
[2016-10-28] MEDS: MIRALAX *UNIT DOSE* 17GM PACKET PO SCH ×2 (09:51→20:13)
[2016-10-28] MEDS: ISOSORBIDE MON. (IMDUR) 30 MG XR TAB PO SCH (09:52)
[2016-10-28] MEDS: amLODIPine 10 MG TAB PO SCH (09:52)
[2016-10-28] MEDS: POTASSIUM CHLORIDE 10 MEQ SR TABLET PO SCH (09:52)
[2016-10-28] MEDS: NYSTATIN 100,000 UNITS/GM TOPICAL PWD 15 GM TOP SCH ×2 (09:53→20:49)
[2016-10-28] MEDS: SODIUM CHLORIDE NASAL 0.65% SPRAY BTL (OCEAN) SCH ×3 (09:53→20:48)
--- NOTE | 2016-10-28 11:49 | IPNPDOC ---
Text Note Date of Service The patient was seen on 10/28/16. NOTE Subjective: States her SOB has improved, although she does have generalized weakness. Denies CP/Palpitations. Objective: Vitals: (see below) General: No acute distress, laying comfortably in bed. HEENT: Dry mucous membranes. Neck: No JVD or lymphadenopathy Cardiac: RRR, No murmurs Pulm: Coarse crackles b/l, mild exp wheezing/ rhonchi Abd: NT/ND + BS Ext: Trace edema BLE. No cyanosis Labs (see below) Images: Abd X-ray 10/21/16- Impression: Nonspecific bowel gas pattern. CXR 10/19/16 Impression: Bilateral infiltrates and effusions (left greater than right) similar to prior examination. Assessment/Plan 1. HCAP - SOB is slightly improving. Not on O2 at home. Cont Vanc/Zosyn. Mucinex. F/u cultures. Incentive spirometer 2. Acute on Chronic Kidney Disease - Improving. Baseline Cr 1.8-2.0. c/p lasix, which is on hold. I have asked Dr. Real to evaluate pt. 2. Acute Decompensated Diastolic HF - Off IVF. Willson inserted for strict I/O. Diuresed well. Lasix on hold given worsening renal function. Imdur started. 3. New onset AF - CHADSVASc 4, on eliquis, atenolol 4. HTN - Cont home meds 5. Loose stools - resolved. GI panel negative. DVT prophy: On Eliquis PT eval. VS,Fishbone, I+O VS, Fishbone, I+O Laboratory Tests 10/28/16 05:42 Calcium Level 8.4 L, Aspartate Amino Transf (AST/SGOT) 59 H, Alanine Aminotransferase (ALT/SGPT) 60, Alkaline Phosphatase 84, Total Bilirubin 0.6, Total Protein 7.1, Albumin 2.3 L, Red Blood Count 3.78 L, Mean Corpuscular Volume 92.2, Mean Corpuscular Hemoglobin 30.0, Mean Corpuscular Hemoglobin Concent 32.6, Red Cell Distribution Width 12.3, Neutrophils (%) (Auto) 77.8 H, Lymphocytes (%) (Auto) 8.8 L, Monocytes (%) (Auto) 4.0, Eosinophils (%) (Auto) 6.4 H, Basophils (%) (Auto) 0.2, Neutrophils # (Auto) 8.1 H, Lymphocytes # (Auto ) 0.9 L, Monocytes # (Auto) 0.4, Eosinophils # (Auto) 0.7 H, Basophils # (Auto) 0.0 Vital Signs Date Time Temp Pulse Resp B/P Pulse Ox O2 Delivery O2 Flow Rate FiO2 10/28/16 09:51 68 169/74 10/28/16 09:00 Nasal Cannula 4.0 10/28/16 06:00 97.1 20 92 I&O- Last 24 Hours up to 6 AM 10/28/16 06:00 Intake Total 980 ml Output Total 1500 ml Balance -520 ml SILKE MULLEN MD Oct 28, 2016 11:48
--- NOTE | 2016-10-28 13:11 | CR ---
DATE OF CONSULTATION: 10/28/2016 REQUESTING PHYSICIAN: Dr. Thad Waggoner. REASON FOR CONSULT: Acute renal failure superimposed on chronic kidney disease. HISTORY OF PRESENT ILLNESS: Mrs. Driscoll is an 86-year-old female with multiple chronic medical problems including dementia, hypertension, diabetes, baseline chronic kidney disease with creatinine about 1.8 mg/dl on admission, history of diastolic congestive heart failure and gout. She was admitted to [facility] on October 15 due to difficulty breathing and was felt to have healthcare associated pneumonia. She has been treated with antibiotics including vancomycin and Zosyn. Her hospital course has been complicated with atrial fibrillation and development of decompensated congestive heart failure. The last few days she has been diuresed due to which her kidney function has worsened with creatinine up to 3.5 mg/dl. A nephrology consultation was requested today and the patient is seen this morning. PAST MEDICAL AND SURGICAL HISTORY: Significant for: 1. History of hypertension. 2. Dementia. 3. History of gout. 4. History of diastolic congestive heart failure. 5. History of chronic kidney disease. MEDICATIONS: Her medications prior to admission included: - amlodipine 10 mg daily - atenolol 25 mg half a tablet daily - Uloric 40 mg daily - Lasix 10 mg three times daily - mirtazapine 7.5 mg at bedtime - Tylenol and bisacodyl as needed Currently in the hospital, her medications include: - Imdur 30 mg daily - Colace 100 mg - MiraLax 17 gram daily - atenolol 12.5 mg daily - potassium chloride 20 mEq daily - Zofran 4 mg every 4 hours as needed nausea - Uloric 40 mg daily - DuoNebs every 6 hours as needed - amlodipine 10 mg daily - Zosyn 2.25 grams every 8 hours - vancomycin 500 mg every 24 hours - He also is Tylenol and Dulcolax as needed. ALLERGIES: The patient has no known drug allergies. PERSONAL AND SOCIAL HISTORY: The patient has history of dementia. She was currently living in assisted living prior to admission. She is not in a position to provide any reliable information due to her dementia. FAMILY HISTORY: There is no family history for end-stage renal disease. REVIEW OF SYSTEMS: The patient is confused and not able to provide any reliable information. Her chart is reviewed and it is noticed that she was admitted with shortness of breath and initial impression was pneumonia. She has been treated with antibiotics and then she developed congestive heart failure after receiving IV fluids for a few days. She has been diuresed now. There is no reported high-grade fever or positive blood cultures. PHYSICAL EXAMINATION: The patient is awake, confused and disoriented. Not in any acute distress. Temperature 97.1 degrees Fahrenheit, heart rate 68 per minute and respiratory rate 20 per minute. Blood pressure 169/74 mmHg and oxygen saturation is 92% on 3-4 liters oxygen. Intake and output records are reviewed and since admission, she has been in positive fluid balance of about 6 liters. Last 3 days, she has been in negative fluid balance of about 4.5 liters. Head is atraumatic. Ears, nose and throat are unremarkable. Pupils are equal and reactive to light and sclera is anicteric. Oral mucosa is dry but no thrush or ulcers noted. Neck is supple and without any thyroid enlargement. She has a right-sided carotid artery surgery scar present. Heart: Sounds are regular and lungs with diminished breath sounds at bases bilaterally. Abdomen: Soft and nontender and without any palpable organomegaly. Bowel sounds are normal. Extremities have no cyanosis or clubbing. Skin has no rash or ulcers and it is dry. Neurologically she is awake, alert, confused and disoriented. LABORATORY DATA: Her imaging studies are reviewed since admission. She had a CT scan of chest done on October 24 which showed congestive heart failure and prominent pulmonary vascular cephalization. Bilateral large pleural effusions were noted with some atelectasis. Her chest x-rays previously showed bilateral infiltrates and effusions greater on the left than the right. Her labs have been reviewed and today her WBC count is 10.4, hemoglobin is 11.4 and hematocrit 34.8. On admission, her WBC count was 12.1, hemoglobin 12.9 and hematocrit 39.5. She had a blood gas yesterday which showed pH of 7.48, pCO2 of 43.5, pO2 128 and bicarb 31.5. Her last vancomycin level was done on which was 15.3. Prior to this, her vancomycin level was as high as 20.7. Her chemistry on admission showed a BUN of 43 and creatinine 2.18. On 10/18, BUN was 38 and creatinine 2.1 while electrolytes were within normal range. On , her creatinine went up to 2.25 and then on it came down to 2.16. On , creatinine was 2.4, on , it was 2.81 and today it is 3.35. Sodium is 138 and potassium 3.9. CO2 is 31 and chloride 95. PROBLEMS: 1. Acute renal failure superimposed on chronic kidney disease. The patient does have underlying chronic kidney disease probably related to age-related vascular disease. She did not have any significant proteinuria or hematuria on admission to suggest acute glomerulonephritis. Obstruction has been ruled out with CT scan and it was negative for hydronephrosis. She has been diuresed for last few days and also treated with vancomycin. Acute kidney injury is probably related to diuresis and nephrotoxicity. Will repeat her vancomycin level today and consider to stop her vancomycin as she has received it for several days. Her volume status seems to be clinically compensated and I would recommend to hold off on her diuretics. 2. Acute on chronic diastolic congestive heart failure. Probably related to acute kidney injury and atrial fibrillation. At present, her volume status seems reasonably well-compensated. I agree with holding and stopping her diuretics for now and monitor her for next 24 hours. 3. Pneumonia. The patient has been treated with IV antibiotics since admission which is about 2 weeks. I would consider stopping her antibiotics altogether. 4. Bilateral pleural effusions. We should probably get another CT scan to assess her bilateral pleural effusions and then consider draining it if they are any worse. 5. Hypertension. Blood pressure is somewhat higher than the goal today. She has been on amlodipine 10 mg daily and Imdur while her diuretics are now on hold. We will watch her for next 24 hours without any changes. I thank you for involving me in the care of Mrs. Driscoll. I will follow her along with you. SONAL
[2016-10-28 14:00] VITALS: BP 152/68
[2016-10-28] MEDS: FEBUXOSTAT 40 MG TABLET (ULORIC) PO SCH (17:09)
[2016-10-28] MEDS: MIRTAZAPINE 7.5MG PER 1/2 TABLET PO SCH (20:49)
[2016-10-28 22:00] VITALS: BP 170/62
[2016-10-29] MEDS: IPRATROPIUM 0.5MG/ALBUTEROL 2.5MG INH SOL UD 3ML (DUONEB)(J7620) NEB SCH ×4 (01:46→21:08)
[2016-10-29] MEDS: PIPERACILLIN/TAZOBACTAM SOD 2.25 GM in D5W MINI-BAG PLUS 50 ML IV SCH ×3 (04:05→20:52)
[2016-10-29 06:00] VITALS: BP 149/67
[2016-10-29 08:36] LABS: MEAN CORPUSCULAR HEMOGLOBIN 30.3 pg (27.0-33.0); MEAN CORPUSCULAR HGB CONC 32.6 g/dl (32.0-36.5); MEAN CORPUSCULAR VOLUME 92.9 fl (80.0-96.0); RED CELL DISTRIBUTION WIDTH 12.3 % (11.5-14.5); WHITE BLOOD COUNT 8.9 K/mm3 (4.0-10.0)
[2016-10-29 08:39] LABS: ALBUMIN 2.4 GM/DL (3.2-5.2); CALCIUM LEVEL 8.1 MG/DL (8.8-10.2); CREATININE FOR GFR 3.31 MG/DL (0.55-1.02); PHOSPHORUS LEVEL 3.6 MG/DL (2.5-4.9); POTASSIUM SERUM 4.1 MEQ/L (3.5-5.1)
[2016-10-29] MEDS: MIRALAX *UNIT DOSE* 17GM PACKET PO SCH ×2 (09:00→19:31)
[2016-10-29] MEDS: DOCUSATE SODIUM 100 MG CAP PO SCH ×2 (09:00→19:31)
[2016-10-29] MEDS: APIXABAN 2.5 MG TAB (ELIQUIS) PO SCH ×2 (09:21→20:52)
[2016-10-29] MEDS: ATENOLOL 12.5MG PER 1/2 TABLET PO SCH (09:21)
[2016-10-29] MEDS: POTASSIUM CHLORIDE 10 MEQ SR TABLET PO SCH (09:21)
[2016-10-29] MEDS: SODIUM CHLORIDE NASAL 0.65% SPRAY BTL (OCEAN) SCH ×3 (09:22→20:52)
[2016-10-29] MEDS: ISOSORBIDE MON. (IMDUR) 30 MG XR TAB PO SCH (09:22)
[2016-10-29] MEDS: NYSTATIN 100,000 UNITS/GM TOPICAL PWD 15 GM TOP SCH ×2 (09:23→20:52)
[2016-10-29] MEDS: amLODIPine 10 MG TAB PO SCH (09:23)
--- NOTE | 2016-10-29 12:37 | IPN ---
DATE: 10/29/2016 Ms. Driscoll is seen this morning on her bedside. She is sitting in the chair and has finished eating her breakfast. She denies any nausea or vomiting. She does have some cough, has been using oxygen. Has history of dementia and is not a good historian. On physical exam, temperature 97.2 degrees Fahrenheit, heart rate 80 per minute and respiratory rate 20 per minute. Blood pressure 149/67 mmHg and oxygen saturation 94%. Intake and output records from yesterday showed total intake 2150 and output only 420. Head is atraumatic. Ears, nose and throat are unremarkable. Neck veins are not abnormally distended. Neck is supple and without thyroid enlargement. Heart sounds are regular. Lungs with bilateral rhonchi and mild expiratory wheezing. Abdomen is soft and nontender without palpable organomegaly. Extremities have no cyanosis or clubbing. Today's labs show WBC count 8.9, hemoglobin 11.2 and hematocrit 34.2. Sodium 138 and potassium 4.1. BUN 40 and creatinine 3.31. PROBLEMS: 1. Acute renal failure superimposed on chronic kidney disease. Most likely related to over diuresis. At present, she has no evidence of volume overload. She also received intravenous vancomycin, which may have contributed to acute kidney injury. However, it has been now stopped. At present, we will monitor her kidney function without any intervention. She is not on any diuretics, angiotensin-converting enzyme (BLAS) inhibitor or angiotensin receptor alberto. 2. Pneumonia. Patient remains on Zosyn and her vancomycin has already been stopped. Blood cultures have been negative. 3. Hypertension. Blood pressure control is reasonable at this point and no intervention is indicated. We will continue with current antihypertensive medications. 4. Hypokalemia. Patient has been on potassium chloride 20 mEq daily and that will be stopped as she is not on diuretics anymore. 5. Gout. Patient is currently asymptomatic and continues with Uloric 40 mg daily. MTDD
[2016-10-29 14:00] VITALS: BP 162/67
[2016-10-29] MEDS: FEBUXOSTAT 40 MG TABLET (ULORIC) PO SCH (17:08)
--- NOTE | 2016-10-29 17:11 | IPN ---
DATE OF SERVICE: 10/29/2016 SUBJECTIVE: Patient seen and examined in the room today. Patient stated his condition is stable. There is no worsening of his symptoms. Patient continues to complain about generalized weakness. No overnight events were reported. OBJECTIVE: VITAL SIGNS: Temperature 97.2, pulse 79, respirations 20, blood pressure 149/67, pulse oximetry 94% with 2 liters nasal cannula. GENERAL: Fatigue. No signs of acute distress. Alert and oriented times three. HEENT: Normocephalic, atraumatic. Extraocular motor grossly intact. CARDIOVASCULAR: Positive S1, S2. Regular rate. LUNGS: Positive bilateral rhonchi. Positive expiratory wheezes. ABDOMEN: Nontender. Nondistended. Bowel sounds present. EXTREMITIES: No edema. No cyanosis. LABORATORY DATA: WBC 8.9, hemoglobin 11.3, hematocrit 34.2, platelet count 245. Sodium 138, potassium 4.1, chloride 97, carbon dioxide 31, BUN 40, creatinine 3.31, GFR 14, fasting glucose 133, calcium 8.1, phosphorus 3.6, albumin 2.4. ASSESSMENT AND PLAN: 1. Hospital-acquired pneumonia. Patient is on vancomycin and Zosyn and Mucinex. Respiratory viral panel is negative. Unable to obtain sputum for cultures. Currently, patient is stable. There is no recurrence of fever since 10/27/2016. Patient's white count has returned to normal range. 2. Acute on chronic renal failure. Currently, patient has a creatinine of 3.31. Appreciate Dr. Barrios's assistance. Patient's acute on chronic renal failure possibly due to overdiuresis. 3. Hypertension. Continue current blood pressure medications 4. New onset of atrial fibrillation. Patient is on Eliquis and atenolol. 5. Gout. On Uloric. 6. History of decompensated diastolic heart failure. Initially, patient was getting Lasix diuresis. Patient's fluid overload improved; however, patient now is experiencing overdiuresis from Lasix. 7. Deep venous thrombosis (DVT) prophylaxis. On Eliquis.
[2016-10-29] MEDS: MIRTAZAPINE 7.5MG PER 1/2 TABLET PO SCH (20:52)
[2016-10-29 22:00] VITALS: BP 143/67
[2016-10-30] MEDS: IPRATROPIUM 0.5MG/ALBUTEROL 2.5MG INH SOL UD 3ML (DUONEB)(J7620) NEB SCH ×4 (02:00→20:08)
[2016-10-30] MEDS: PIPERACILLIN/TAZOBACTAM SOD 2.25 GM in D5W MINI-BAG PLUS 50 ML IV SCH ×3 (04:56→20:16)
[2016-10-30 06:00] VITALS: BP 144/69
[2016-10-30 06:42] LABS: MEAN CORPUSCULAR HEMOGLOBIN 30.2 pg (27.0-33.0); MEAN CORPUSCULAR HGB CONC 32.9 g/dl (32.0-36.5); MEAN CORPUSCULAR VOLUME 91.8 fl (80.0-96.0); RED CELL DISTRIBUTION WIDTH 12.5 % (11.5-14.5); WHITE BLOOD COUNT 9.7 K/mm3 (4.0-10.0)
[2016-10-30 06:57] LABS: ALBUMIN 2.4 GM/DL (3.2-5.2); CALCIUM LEVEL 8.4 MG/DL (8.8-10.2); CREATININE FOR GFR 2.95 MG/DL (0.55-1.02); PHOSPHORUS LEVEL 2.6 MG/DL (2.5-4.9); POTASSIUM SERUM 3.8 MEQ/L (3.5-5.1)
[2016-10-30] MEDS: ATENOLOL 12.5MG PER 1/2 TABLET PO SCH (08:41)
[2016-10-30] MEDS: amLODIPine 10 MG TAB PO SCH (08:42)
[2016-10-30] MEDS: ISOSORBIDE MON. (IMDUR) 30 MG XR TAB PO SCH (08:42)
[2016-10-30] MEDS: APIXABAN 2.5 MG TAB (ELIQUIS) PO SCH ×2 (08:42→20:16)
[2016-10-30] MEDS: DOCUSATE SODIUM 100 MG CAP PO SCH ×2 (08:42→20:17)
[2016-10-30] MEDS: MIRALAX *UNIT DOSE* 17GM PACKET PO SCH ×2 (08:42→20:17)
[2016-10-30] MEDS: SODIUM CHLORIDE NASAL 0.65% SPRAY BTL (OCEAN) SCH ×3 (08:43→20:17)
[2016-10-30] MEDS: NYSTATIN 100,000 UNITS/GM TOPICAL PWD 15 GM TOP SCH ×2 (08:43→20:21)
--- NOTE | 2016-10-30 11:50 | IPN ---
DATE: 10/30/2016 Mrs. Driscoll is seen this morning on her bedside. She is sitting in the chair at the time of my visit. She is more alert but still disoriented and not able to tell me the day, year or month correctly. She did tell me that she was in hospital. She has no fever or chills. Nursing staff reports that she has been able to eat well. PHYSICAL EXAMINATION: Temperature 96.0 degrees Fahrenheit, heart rate 78 per minute and respiratory rate 18 per minute. Blood pressure 144/69 mmHg and oxygen saturation between 91 and 97% on room air. Head: Is atraumatic. Pupils are equal and reactive to light and sclera is anicteric. Ears, nose and throat are unremarkable. Heart: Sounds are regular and lungs sound much better today. She has no wheezing or rales. Abdomen is soft. There is no palpable organomegaly. Extremities: Have no cyanosis or clubbing. Skin: No rash or ulcer. Neurologically she is disoriented and confused probably related to her chronic dementia. Today's labs show WBC count 9.7, hemoglobin 11.2, hematocrit 34.0. Sodium 141, potassium 3.8. BUN 40 and creatinine 2.95. PROBLEMS: 1. Acute renal failure superimposed on chronic kidney disease. Improvement in kidney function noted over the last 24 hours. Will continue to hold her diuretics. 2. Hypoxemia, most likely related to pneumonia and respiratory infection. I do not feel that she has any evidence of volume overload at this time. She will continue with nebulizers and continue to hold her diuretics. 3. Anemia. Anemia is stable at this point and no intervention is indicated. 4. Pneumonia. The patient remains on Zosyn and bronchodilators. 5. Gout. At this time, she is asymptomatic and a uric acid level has been at the goal. She will continue with Uloric 40 mg daily. 6. Hypertension. Blood pressure is reasonably well-controlled and no changes in antihypertensives are indicated.
[2016-10-30] MEDS: FEBUXOSTAT 40 MG TABLET (ULORIC) PO SCH (17:11)
--- NOTE | 2016-10-30 17:31 | IPN ---
DATE: 10/30/2016 SUBJECTIVE: Patient is seen and examined in the room today. Patient stated her breathing continues to show improvement. Patient does not have any acute complaint or acute changes. OBJECTIVE: VITAL SIGNS: Temperature is 96, pulse is 78, respirations 18, blood pressure is 144/69, pulse oximetry is 91% in room air. GENERAL: No sign of acute distress. Alert and oriented times three. Patient demonstrates some signs of dementia. HEENT: Normocephalic, atraumatic. Extraocular motor grossly intact. CARDIOVASCULAR: Positive S1, S2. Regular rate. LUNGS: Still has mild wheezes. No rhonchi. ABDOMEN: Soft, nontender, nondistended. Bowel sounds present. EXTREMITIES: No edema. No cyanosis. LABORATORY DATA: WBC is 9.7, hemoglobin 11.3, hematocrit 34, platelet count is 243. Sodium is 141, potassium 3.8, chloride is 100, carbon dioxide 30, BUN 40, creatinine is 2.95, GFR is 16, fasting glucose 102, calcium is 8.4, phosphorus 2.6, C-reactive protein is 5.17, albumin 2.4. ASSESSMENT AND PLAN: 1. Hospital-acquired pneumonia. Patient is on vancomycin, Zosyn, and Mucinex. Unable to obtain the sputum for cultures. Patient's breathing continues to show significant improvement. We will try to wean patient off the oxygen. No fevers since 10/27/2016. C-reactive protein continues to improve. 2. Acute on chronic renal failure. Nephrology has been consulted. Appreciate Dr. Barrios's assistance. 3. Hypertension. Patient's blood pressure is within satisfactory range. Continue Norvasc and atenolol. 4. New onset of atrial fibrillation. Patient is on Eliquis and atenolol. 5. Gout. On Uloric. 6. History of decompensated diastolic congestive heart failure. Patient had IV Lasix diuresis and patient's overload symptoms improved. Currently, patient has recovered from overdiuresis. 7. Deep venous thrombosis (DVT) prophylaxis. On Eliquis.
[2016-10-30 20:08] VITALS: O2SAT 92
[2016-10-30] MEDS: MIRTAZAPINE 7.5MG PER 1/2 TABLET PO SCH (20:16)
[2016-10-30 22:00] VITALS: BP 133/60
[2016-10-31] MEDS: IPRATROPIUM 0.5MG/ALBUTEROL 2.5MG INH SOL UD 3ML (DUONEB)(J7620) NEB SCH ×4 (02:00→20:00)
[2016-10-31] MEDS: PIPERACILLIN/TAZOBACTAM SOD 2.25 GM in D5W MINI-BAG PLUS 50 ML IV SCH ×3 (03:29→20:01)
[2016-10-31 05:30] LABS: MEAN CORPUSCULAR HEMOGLOBIN 30.1 pg (27.0-33.0); MEAN CORPUSCULAR HGB CONC 32.6 g/dl (32.0-36.5); MEAN CORPUSCULAR VOLUME 92.4 fl (80.0-96.0); RED CELL DISTRIBUTION WIDTH 12.7 % (11.5-14.5); WHITE BLOOD COUNT 9.3 K/mm3 (4.0-10.0)
[2016-10-31 05:31] LABS: ALBUMIN 2.4 GM/DL (3.2-5.2); CALCIUM LEVEL 8.3 MG/DL (8.8-10.2); CREATININE FOR GFR 3.12 MG/DL (0.55-1.02); PHOSPHORUS LEVEL 3.1 MG/DL (2.5-4.9); POTASSIUM SERUM 3.8 MEQ/L (3.5-5.1)
[2016-10-31 06:00] VITALS: BP 145/96
[2016-10-31] MEDS: APIXABAN 2.5 MG TAB (ELIQUIS) PO SCH ×2 (08:08→20:01)
[2016-10-31] MEDS: amLODIPine 10 MG TAB PO SCH (08:08)
[2016-10-31] MEDS: DOCUSATE SODIUM 100 MG CAP PO SCH ×3 (08:08→20:01)
[2016-10-31] MEDS: ATENOLOL 12.5MG PER 1/2 TABLET PO SCH (08:08)
[2016-10-31] MEDS: ISOSORBIDE MON. (IMDUR) 30 MG XR TAB PO SCH (08:08)
[2016-10-31] MEDS: NYSTATIN 100,000 UNITS/GM TOPICAL PWD 15 GM TOP SCH ×2 (08:09→20:01)
[2016-10-31] MEDS: SODIUM CHLORIDE NASAL 0.65% SPRAY BTL (OCEAN) SCH ×3 (08:10→20:01)
[2016-10-31] MEDS: MIRALAX *UNIT DOSE* 17GM PACKET PO SCH ×2 (08:11→20:01)
--- NOTE | 2016-10-31 12:16 | IPN ---
DATE: 10/31/2016 Mrs. Driscoll is seen this morning on her bedside. She is sitting in the chair at the time of my visit. She continues to have some cough. She denies any nausea or vomiting. On physical exam, temperature 96.8 degrees Fahrenheit, heart rate 70 per minute and respiratory rate 18 per minute. Blood pressure 160/68 mmHg and oxygen saturation 90-91% on room air. Head is atraumatic. Ears, nose and throat are unremarkable. Neck is supple and without any jugular venous distention (JVD) or thyroid enlargement. Heart sounds are regular and lungs with mild expiratory wheezing and few rhonchi. Abdomen is soft and nontender and without palpable organomegaly. Bowel sounds are normal. Extremities have no cyanosis or clubbing. Neurologically, she remains slightly confused and disoriented, probably related to her chronic dementia. On review of labs, WBC count is 9.3 and hemoglobin 10.6 with hematocrit 32.5. Sodium 140 and potassium 3.8. BUN 41 and creatinine 3.12. PROBLEMS: 1. Acute kidney injury superimposed on chronic kidney disease. There is no significant change in her kidney function. I see a slight increase in creatinine compared to yesterday. She is not on any diuretic at this point and also, she is not receiving any nephrotoxic medications. We will continue to monitor her kidney function on a daily basis. 2. Pneumonia. Patient remains on Zosyn with appropriately adjusted dose. No other changes are indicated. She is afebrile. 3. Hypertension. Blood pressure control is optimal on current antihypertensive medications. No changes are indicated. 4. Gout. Patient is currently asymptomatic and her uric acid level has been appropriate. Will continue Uloric 40 mg daily.
[2016-10-31 14:00] VITALS: BP 137/60
[2016-10-31] MEDS: FEBUXOSTAT 40 MG TABLET (ULORIC) PO SCH (17:44)
--- NOTE | 2016-10-31 19:32 | IPN ---
DATE: 10/31/2016 SUBJECTIVE: Patient is seen and examined in the room today. Patient stated she is breathing comfortably in room air. Does not require any oxygen support. Patient continues to show signs of dementia. No overnight events were reported. OBJECTIVE: VITAL SIGNS: Temperature is 96.8, pulse is 75, respirations 18, blood pressure is 145/96, pulse oximetry is 90% in room air. GENERAL: No sign of acute distress. Alert and oriented times three. Signs of dementia. HEENT: Normocephalic, atraumatic. Extraocular motor grossly intact. CARDIOVASCULAR: Positive S1, S2. Regular rate. LUNGS: Still has some mild wheezes but no rhonchi. ABDOMEN: Soft, nontender, nondistended. Bowel sounds present. No rebound or guarding. EXTREMITIES: No lower extremity edema. No sign of cyanosis. LABORATORY DATA: WBC is 9.3, hemoglobin 10.6, hematocrit 32.5, platelet count is 241. Sodium is 140, potassium 3.8, chloride is 101, carbon dioxide 30, BUN 41, creatinine is 3.12, GFR is 15, fasting glucose 120, calcium is 8.2, phosphorus 3.1, albumin 2.4. ASSESSMENT AND PLAN: 1. Acute on chronic renal failure. Nephrology has been consulted. Currently patient's renal function is not at her baseline. We will continue to monitor patient's renal function. 2. Hospital-acquired pneumonia. Patient is on vancomycin, Zosyn, and Mucinex. Currently patient's breathing continues to improve. Patient does not require any oxygen support at this moment. White count has remained normal range in the last 2-3 days. CRP continued to trend down. 3. Hypertension. Continue Norvasc and atenolol. 4. New onset of atrial fibrillation. Patient is on Eliquis and atenolol. 5. Gout. On Uloric. 6. History of decompensated congestive heart failure. Apparently patient has acute kidney injury. Diuretic on hold. 7. Deep vein thrombosis on Eliquis.
[2016-10-31] MEDS: MIRTAZAPINE 7.5MG PER 1/2 TABLET PO SCH (20:01)
[2016-10-31 22:00] VITALS: BP 131/56
[2016-11-01] MEDS: IPRATROPIUM 0.5MG/ALBUTEROL 2.5MG INH SOL UD 3ML (DUONEB)(J7620) NEB SCH ×3 (02:02→13:20)
[2016-11-01] MEDS: PIPERACILLIN/TAZOBACTAM SOD 2.25 GM in D5W MINI-BAG PLUS 50 ML IV SCH ×2 (03:00→12:00)
[2016-11-01 06:00] VITALS: BP 130/69
[2016-11-01 06:44] LABS: ALBUMIN 2.4 GM/DL (3.2-5.2); CALCIUM LEVEL 8.7 MG/DL (8.8-10.2); CREATININE FOR GFR 2.99 MG/DL (0.55-1.02); GLOMERULAR FILTRATION RATE 15.7 (>32); PHOSPHORUS LEVEL 2.8 MG/DL (2.5-4.9); POTASSIUM SERUM 3.9 MEQ/L (3.5-5.1)
[2016-11-01 07:16] LABS: MEAN CORPUSCULAR HEMOGLOBIN 30.6 pg (27.0-33.0); MEAN CORPUSCULAR HGB CONC 32.6 g/dl (32.0-36.5); MEAN CORPUSCULAR VOLUME 93.8 fl (80.0-96.0); RED CELL DISTRIBUTION WIDTH 12.7 % (11.5-14.5); WHITE BLOOD COUNT 9.7 K/mm3 (4.0-10.0)
[2016-11-01] MEDS: DOCUSATE SODIUM 100 MG CAP PO SCH (08:27)
[2016-11-01 08:28] VITALS: BP 130/69
[2016-11-01] MEDS: ISOSORBIDE MON. (IMDUR) 30 MG XR TAB PO SCH (08:28)
[2016-11-01] MEDS: SODIUM CHLORIDE NASAL 0.65% SPRAY BTL (OCEAN) SCH (08:28)
[2016-11-01] MEDS: amLODIPine 10 MG TAB PO SCH (08:28)
[2016-11-01] MEDS: MIRALAX *UNIT DOSE* 17GM PACKET PO SCH (08:28)
[2016-11-01] MEDS: APIXABAN 2.5 MG TAB (ELIQUIS) PO SCH (08:28)
[2016-11-01] MEDS: ATENOLOL 12.5MG PER 1/2 TABLET PO SCH (08:28)
[2016-11-01] MEDS: NYSTATIN 100,000 UNITS/GM TOPICAL PWD 15 GM TOP SCH (08:29)
[2016-11-01] MEDS ORDERED: ELIQ2.5T PO (10:10)
--- NOTE | 2016-11-01 17:32 | DSES ---
DATE OF ADMISSION: 10/15/2016 DATE OF DISCHARGE: 11/01/2016 Patient is from [facility]), primary care provider is Dr. Brian Keith Jr. CONSULTANTS: Dr. Iam Barrios PROCEDURES: None. COMPLICATIONS: None. ADMISSION/DISCHARGE DIAGNOSES: 1. Hospital-acquired pneumonia. 2. Acute on chronic renal failure. 3. Hypertension. 4. New onset atrial fibrillation. 5. Gout. 6. History of decompensated congestive heart failure. HOSPITALIZATION COURSE: Patient is an 86-year-old female transferred from [facility] to [facility] on 10/15/2016, for respiratory distress. Chest xrays were performed and patient was shown to have pneumonia. Due to recent hospitalization, patient is admitted for hospital-acquired pneumonia. Sputum culture is obtained, respiratory panel is obtained, and patient is started on vancomycin and Zosyn. Patient was also found to have new onset atrial fibrillation and patient is started on anticoagulation with Eliquis. Later, patient started to show acute kidney injury and it was suspected to be due to antibiotic use. With antibiotics patient's breathing continued to improve and renal function continued to fluctuate above the baseline but no dramatic increase. Later, patient started to show some sign of fluid overload and intravenous (IV) fluids were discontinued and patient's Lasix was restarted. Later, patient finished a course of vancomycin and it was discontinued. Patient was continued on Zosyn. Due to concern of diuretic affecting patient's renal function, patient's diuretic has been on hold and patient's fluid status has been monitored on a daily basis. Gradually, patient's fever resolved without recurrence and patient's oxygen requirement continued to improve. Later, patient is able to maintain satisfactory oxygen saturation with oxygen support. Due to persistent compromised renal function, patient stayed in the hospital for monitoring and medication adjustment. On 11/01/2016, patient is determined to be medically stable to be transferred to [facility] with recommendation to followup with primary care provider within 1 week and followup with [employer] in 1 week. OBJECTIVE: VITAL SIGNS: Temperature 96.9, pulse 85, respirations 18, blood pressure 130/69, pulse oximetry 93% in room air. LABORATORY DATA: WBC 9.7, hemoglobin 10.8, hematocrit 33.1, platelet count 245. Sodium 141, potassium 3.9, chloride 103, carbon dioxide 29, BUN 33, creatinine 2.99, GFR 15.7, fasting glucose 86, calcium 8.7, phosphorous 2.8, C-reactive protein 3.65 (initial C-reactive protein is 7.89), albumin 2.4. MICROBIOLOGY: Blood cultures negative after 5 days times two sets. Urine culture is negative. Respiratory panel is negative. Gastrointestinal (GI) panel is negative. IMAGING STUDIES: Chest xray on 10/14/2016, cannot exclude superimposed atelectasis or small pleural effusion. Chest xray on 10/16/2016, showed pulmonary vascular congestion, interstitial edema, with left lower lobe consolidation with possible small layering effusions. Chest xray on 10/19/2016, showed bilateral infiltrate effusion, left greater than right, similar to prior examinations. Abdominal xray on 10/21/2016, showed nonspecific bowel gas patterns. Chest CT without contrast on 10/24/2016, showed findings compatible with congestive heart failure (CHF) and pulmonary edema, including pulmonary vascular congestion with cephalization, large bilateral pleural effusion, left lower lobe consolidation/atelectasis and scattered infiltrate. Underlying pneumonia cannot be excluded. CT of the head without contrast on 10/27/2016, showed age-related atrophy and microvascular ischemic changes. No acute intracranial hemorrhage, infarction, or mass or mass effect. DISCHARGE MEDICATIONS: - Eliquis 2.5 mg by mouth twice a day - Tylenol 650 mg by mouth every 4 hours as needed - amlodipine 10 mg by mouth daily - atenolol 12.5 mg by mouth daily - bisacodyl 10 mg per rectum daily as needed - Uloric 40 mg by mouth daily - milk of magnesia 30 mL by mouth daily as needed for constipation - mirtazapine 7.5 mg by mouth nightly - Fleet enema per rectum daily as needed for constipation DISCHARGE INSTRUCTIONS: Discontinue lines. Discharge to [facility]. Activity as tolerated. Diet as tolerated. Patient should followup with primary care provider, Dr. Keith, within 1 week. Patient should followup with [employer] [employer], Dr. Barrios, in 1 week. DISCHARGE CONDITION: Stable. DISCHARGE TIME: Greater than 30 minutes.
--- NOTE | 2016-11-01 20:55 | IPN ---
DATE: 11/01/2016 Mrs. Driscoll is seen this morning on her bedside. Her son is visiting, and I did discuss with him her condition. The patient is chronically demented and does not provide any reliable information; however, she denies any dyspnea, chest pain, fever or chills. Nursing staff reports that she has been eating reasonably well and has no nausea, vomiting or diarrhea. PHYSICAL EXAMINATION Temperature 96.9 degrees Fahrenheit, heart rate 85 per minute and respiratory rate 18 per minute. Blood pressure 130/69 mmHg and oxygen saturation 96%. Head is atraumatic. Ears, nose and throat are unremarkable. Neck is supple and without jugular venous distention (JVD) or thyroid enlargement. Abdomen is soft and benign and extremities without cyanosis or clubbing. Today's laboratories show WBC count 9.7, hemoglobin 10.8 and hematocrit 33.1. Sodium 141 and potassium 3.9. BUN 38 and creatinine 2.99. Glucose 86 and calcium 8.7. C-reactive protein is 3.65. PROBLEMS: 1. Acute renal failure superimposed on chronic kidney disease. Slight improvement in kidney function is noted. The patient has been off diuretics. 2. Pneumonia. The patient is improving and her symptoms have improved significantly. She has been treated with antibiotics. I will defer to hospitalist service about further antibiotic as an outpatient. 3. Congestive heart failure. At present, she is quite compensated and has been off diuretics due to acute renal failure. I would recommend to keep her off diuretics until she is seen in the office. 4. Anemia. Her anemia is stable and does not need any intervention. DISPOSITION: From a renal standpoint, the [facility], and I will be pleased to see her in the office next week for followup and adjustment of her medications.
== END 2016-11-01 14:06 | DRG 193 ==
LOC: M ED 19:53 → M ED INP 10-15 00:12 → M PCU 10-15 11:55 → M MSPAV 10-21 13:15
PROVIDERS: ADMIT Internal Medicine; ATTEND Internal Medicine
DX: J18.9 Pneumonia, unspecified organism (principal); I50.33 Acute on chronic diastolic (congestive) heart failure; I13.0 Hypertensive heart and chronic kidney disease with heart failure and stage 1 through stage 4 chronic kidney disease, or unspecified chronic kidney disease; N17.9 Acute kidney failure, unspecified; M10.9 Gout, unspecified; F32.9 Major depressive disorder, single episode, unspecified; F03.90 Unspecified dementia, unspecified severity, without behavioral disturbance, psychotic disturbance, mood disturbance, and anxiety; N18.9 Chronic kidney disease, unspecified; I48.91 Unspecified atrial fibrillation; R29.6 Repeated falls; R11.2 Nausea with vomiting, unspecified; T36.95XA Adverse effect of unspecified systemic antibiotic, initial encounter; E87.6 Hypokalemia; R09.02 Hypoxemia; Y95 Nosocomial condition; Z90.710 Acquired absence of both cervix and uterus; Z79.899 Other long term (current) drug therapy

== ENCOUNTER → 2016-10-14 | Outpatient (REF) | payer MEDICARE, OTHER ==
[~2016-10-14] MED LIST changes: +ACET65SU PR; +AMLO10TA2 PO; +ENEMENE3 PR; +FURO20TA2 PO; +MILKSUS PO; +MIRT1TAB PO
[2016-10-14 13:59] LABS: MEAN CORPUSCULAR HGB CONC 32.6 g/dl (32.0-36.5); MEAN CORPUSCULAR VOLUME 94.9 fl (80.0-96.0); RED CELL DISTRIBUTION WIDTH 12.3 % (11.5-14.5)
[2016-10-14 14:18] LABS: CALCIUM LEVEL 8.5 MG/DL (8.8-10.2); CREATININE FOR GFR 2.08 MG/DL (0.55-1.02); GLOMERULAR FILTRATION RATE 23.9 (>32); POTASSIUM SERUM 4.8 MEQ/L (3.5-5.1)
== END ==
PROVIDERS: ATTEND Internal Medicine
DX: R11.10 Vomiting, unspecified (principal)

== ENCOUNTER → 2016-11-04 | Outpatient (REF) ==
[~2016-11-04] MED LIST changes: +ACET65SU PR; +AMLO10TA2 PO; +ELIQ2.5T PO; +ENEMENE3 PR; +FURO20TA2 PO; +MILKSUS PO; +MIRT1TAB PO
[2016-11-04 10:07] LABS: MEAN CORPUSCULAR HEMOGLOBIN 31.2 pg (27.0-33.0); MEAN CORPUSCULAR HGB CONC 32.6 g/dl (32.0-36.5); MEAN CORPUSCULAR VOLUME 95.8 fl (80.0-96.0); RED CELL DISTRIBUTION WIDTH 13.2 % (11.5-14.5); WHITE BLOOD COUNT 8.5 K/mm3 (4.0-10.0)
[2016-11-04 10:35] LABS: CALCIUM LEVEL 8.8 MG/DL (8.8-10.2); CREATININE FOR GFR 2.52 MG/DL (0.55-1.02); GLOMERULAR FILTRATION RATE 19.2 (>32); POTASSIUM SERUM 4.6 MEQ/L (3.5-5.1)
== END ==
PROVIDERS: ATTEND Internal Medicine
DX: I50.9 Heart failure, unspecified (principal)

== ENCOUNTER → 2016-11-04 | Outpatient (REF) | payer MEDICARE, OTHER | LOC: M ED 23:17 | PROVIDERS: ATTEND Internal Medicine | DX: R41.82 Altered mental status, unspecified (principal) ==

== ENCOUNTER → 2016-11-06 | Outpatient (REF) ==
[2016-11-06 14:13] LABS: YEAST LIKE CELL URINE AUTO LARGE
== END ==
PROVIDERS: ATTEND Internal Medicine
DX: R41.82 Altered mental status, unspecified (principal)

== ENCOUNTER → 2016-11-07 | Outpatient (REF) | payer MEDICARE, OTHER ==
[2016-11-08 08:23] LABS: BASO % 0.4 % (0.0-1.0); EOS % 11.3 % (0.0-3.0); LARGE UNSTAINED CELL # 0.4 K/mm3 (0.0-0.4); LYMPH # 2.1 K/mm3 (1.5-4.5); LYMPH % 19.3 % (24.0-44.0); MEAN CORPUSCULAR HEMOGLOBIN 31.6 pg (27.0-33.0); MEAN CORPUSCULAR HGB CONC 32.1 g/dl (32.0-36.5); MEAN CORPUSCULAR VOLUME 98.3 fl (80.0-96.0); MONO # 0.6 K/mm3 (0.0-0.8); MONO % 6.8 % (0.0-5.0); NEUTROPHILS # 5.2 K/mm3 (1.8-7.7); NEUTROPHILS % 58.3 % (36.0-66.0); PLATELET COUNT, AUTOMATED 250 k/mm3 (150-450); RED CELL DISTRIBUTION WIDTH 13.5 % (11.5-14.5)
[2016-11-08 08:42] LABS: CALCIUM LEVEL 9.2 MG/DL (8.8-10.2); CREATININE FOR GFR 2.45 MG/DL (0.55-1.02); GLOMERULAR FILTRATION RATE 19.8 (>32); POTASSIUM SERUM 4.6 MEQ/L (3.5-5.1)
== END ==
PROVIDERS: ATTEND Internal Medicine
DX: I50.9 Heart failure, unspecified (principal)

== ENCOUNTER → 2016-11-12 | Outpatient (REF) ==
[2016-11-12 11:05] LABS: MEAN CORPUSCULAR HEMOGLOBIN 31.1 pg (27.0-33.0); MEAN CORPUSCULAR HGB CONC 32.5 g/dl (32.0-36.5); MEAN CORPUSCULAR VOLUME 95.7 fl (80.0-96.0); RED CELL DISTRIBUTION WIDTH 13.4 % (11.5-14.5); WHITE BLOOD COUNT 9.7 K/mm3 (4.0-10.0)
[2016-11-12 11:41] LABS: CALCIUM LEVEL 8.7 MG/DL (8.8-10.2); CREATININE FOR GFR 2.5 MG/DL (0.55-1.02); GLOMERULAR FILTRATION RATE 19.3 (>32)
== END ==
PROVIDERS: ATTEND Internal Medicine
DX: I50.9 Heart failure, unspecified (principal)

== ENCOUNTER → 2016-11-14 | Outpatient (REF) | payer MEDICARE, OTHER ==
[2016-11-14 15:40] LABS: MEAN CORPUSCULAR HGB CONC 32.9 g/dl (32.0-36.5); MEAN CORPUSCULAR VOLUME 94.2 fl (80.0-96.0); RED CELL DISTRIBUTION WIDTH 13.3 % (11.5-14.5); WHITE BLOOD COUNT 9.3 K/mm3 (4.0-10.0)
[2016-11-14 15:54] LABS: CALCIUM LEVEL 8.5 MG/DL (8.8-10.2); CREATININE FOR GFR 2.37 MG/DL (0.55-1.02); GLOMERULAR FILTRATION RATE 20.6 (>32); POTASSIUM SERUM 4.7 MEQ/L (3.5-5.1)
== END ==
PROVIDERS: ATTEND Internal Medicine
DX: I50.9 Heart failure, unspecified (principal)

== ENCOUNTER → 2016-11-15 | Outpatient (REF) | payer MEDICARE, OTHER ==
--- NOTE | 2016-11-15 13:35 | REP ---
Chest x-ray: Single AP view. History: Follow-up pneumonia. Comparison study: October 19, 2016. Findings: The patient is rotated slightly to the left for the current exposure. The lungs are symmetrically aerated and free of infiltrate. Pleural angles are sharp. Heart size is unchanged. Pulmonary vasculature is not increased. Impression: No acute disease. Signed by Tramaine Zayas MD 11/15/2016 02:05 P
== END ==
PROVIDERS: ATTEND Internal Medicine
DX: J18.9 Pneumonia, unspecified organism (principal); I50.9 Heart failure, unspecified

== ENCOUNTER → 2016-11-18 | Outpatient (REF) | payer MEDICARE, OTHER ==
[2016-11-18 13:58] LABS: CALCIUM LEVEL 8.8 MG/DL (8.8-10.2); CREATININE FOR GFR 2.57 MG/DL (0.55-1.02); GLOMERULAR FILTRATION RATE 18.7 (>32); POTASSIUM SERUM 4.3 MEQ/L (3.5-5.1)
== END ==
PROVIDERS: ATTEND Internal Medicine
DX: I50.9 Heart failure, unspecified (principal)

== ENCOUNTER → 2016-11-19 | Outpatient (REF) ==
[2016-11-19 10:14] LABS: MEAN CORPUSCULAR HEMOGLOBIN 30.5 pg (27.0-33.0); MEAN CORPUSCULAR HGB CONC 31.9 g/dl (32.0-36.5); MEAN CORPUSCULAR VOLUME 95.6 fl (80.0-96.0); WHITE BLOOD COUNT 11.6 K/mm3 (4.0-10.0)
[2016-11-19 10:35] LABS: CALCIUM LEVEL 8.8 MG/DL (8.8-10.2); CREATININE FOR GFR 2.43 MG/DL (0.55-1.02); POTASSIUM SERUM 4.3 MEQ/L (3.5-5.1)
== END ==
PROVIDERS: ATTEND Internal Medicine
DX: I50.9 Heart failure, unspecified (principal)

== ENCOUNTER → 2016-11-22 | Outpatient (REF) ==
[2016-11-22 13:47] LABS: MEAN CORPUSCULAR HEMOGLOBIN 31.2 pg (27.0-33.0); MEAN CORPUSCULAR HGB CONC 32.7 g/dl (32.0-36.5); MEAN CORPUSCULAR VOLUME 95.4 fl (80.0-96.0); RED CELL DISTRIBUTION WIDTH 13.1 % (11.5-14.5); WHITE BLOOD COUNT 10.9 K/mm3 (4.0-10.0)
[2016-11-22 14:05] LABS: ALBUMIN 3.4 GM/DL (3.2-5.2); CREATININE FOR GFR 1.97 MG/DL (0.55-1.02); GLOMERULAR FILTRATION RATE 25.5 (>32); PHOSPHORUS LEVEL 3.1 MG/DL (2.5-4.9); POTASSIUM SERUM 4.3 MEQ/L (3.5-5.1); URIC ACID 5.5 MG/DL (2.6-6.0)
== END ==
PROVIDERS: ATTEND Internal Medicine
DX: I50.9 Heart failure, unspecified (principal); M10.9 Gout, unspecified

== ENCOUNTER → 2017-02-06 | Outpatient (REF) ==
[2017-02-06 14:29] LABS: MEAN CORPUSCULAR HEMOGLOBIN 30.1 pg (27.0-33.0); MEAN CORPUSCULAR HGB CONC 32.4 g/dl (32.0-36.5); MEAN CORPUSCULAR VOLUME 92.7 fl (80.0-96.0); RED CELL DISTRIBUTION WIDTH 12.9 % (11.5-14.5); WHITE BLOOD COUNT 11.2 K/mm3 (4.0-10.0)
[2017-02-06 15:34] LABS: CALCIUM LEVEL 9.2 MG/DL (8.8-10.2); CREATININE FOR GFR 2.28 MG/DL (0.55-1.02); GLOMERULAR FILTRATION RATE 21.5 (>32); POTASSIUM SERUM 4.4 MEQ/L (3.5-5.1); URIC ACID 6.2 MG/DL (2.6-6.0)
== END ==
PROVIDERS: ATTEND Internal Medicine
DX: I48.91 Unspecified atrial fibrillation (principal); Z79.01 Long term (current) use of anticoagulants

== ENCOUNTER → 2017-02-10 | Outpatient (REF) ==
[2017-02-10 14:17] LABS: MEAN CORPUSCULAR HEMOGLOBIN 31.6 pg (27.0-33.0); MEAN CORPUSCULAR HGB CONC 33.4 g/dl (32.0-36.5); MEAN CORPUSCULAR VOLUME 94.7 fl (80.0-96.0); RED CELL DISTRIBUTION WIDTH 12.8 % (11.5-14.5); WHITE BLOOD COUNT 12.1 K/mm3 (4.0-10.0)
[2017-02-10 15:38] LABS: CREATININE FOR GFR 2.62 MG/DL (0.55-1.02); GLOMERULAR FILTRATION RATE 18.3 (>32); POTASSIUM SERUM 4.4 MEQ/L (3.5-5.1)
== END ==
PROVIDERS: ATTEND Internal Medicine
DX: I50.9 Heart failure, unspecified (principal)

== ENCOUNTER → 2017-02-14 | Outpatient (REF) ==
[2017-02-14 10:48] LABS: MEAN CORPUSCULAR HEMOGLOBIN 32.4 pg (27.0-33.0); MEAN CORPUSCULAR HGB CONC 34.6 g/dl (32.0-36.5); MEAN CORPUSCULAR VOLUME 93.8 fl (80.0-96.0); RED CELL DISTRIBUTION WIDTH 12.7 % (11.5-14.5); WHITE BLOOD COUNT 10.4 K/mm3 (4.0-10.0)
[2017-02-14 11:02] LABS: CALCIUM LEVEL 8.8 MG/DL (8.8-10.2); CREATININE FOR GFR 2.31 MG/DL (0.55-1.02); GLOMERULAR FILTRATION RATE 21.2 (>32); POTASSIUM SERUM 4.3 MEQ/L (3.5-5.1)
== END ==
PROVIDERS: ATTEND Internal Medicine
DX: N18.9 Chronic kidney disease, unspecified (principal)

== ENCOUNTER → 2017-02-17 | Outpatient (REF) ==
[2017-02-17 14:46] LABS: CREATININE FOR GFR 2.06 MG/DL (0.55-1.02); GLOMERULAR FILTRATION RATE 24.2 (>32); POTASSIUM SERUM 4.8 MEQ/L (3.5-5.1)
== END ==
PROVIDERS: ATTEND Internal Medicine
DX: N18.9 Chronic kidney disease, unspecified (principal)

== ENCOUNTER → 2017-02-19 | Outpatient (REF) ==
[2017-02-19 14:44] LABS: CALCIUM LEVEL 9.2 MG/DL (8.8-10.2); CREATININE FOR GFR 1.94 MG/DL (0.55-1.02); GLOMERULAR FILTRATION RATE 25.9 (>32); POTASSIUM SERUM 4.7 MEQ/L (3.5-5.1)
== END ==
PROVIDERS: ATTEND Internal Medicine
DX: N18.9 Chronic kidney disease, unspecified (principal)

== ENCOUNTER → 2017-02-24 | Outpatient (REF) | PROVIDERS: ATTEND Internal Medicine | DX: I48.91 Unspecified atrial fibrillation (principal); I12.9 Hypertensive chronic kidney disease with stage 1 through stage 4 chronic kidney disease, or unspecified chronic kidney disease; N18.3 Chronic kidney disease, stage 3 (moderate) ==

== ENCOUNTER → 2017-04-22 | Outpatient (REF) ==
[~2017-04-22] MED LIST changes: +ATIV1TAB10 PO; +ENEMENE16 PR; -ENEMENE3 PR; +LISI10TA4 PO; +PROC5TA PO; +ROCA0.25 PO; +ZOLO25TA PO; +ZOLO50TA PO
== END ==
PROVIDERS: ATTEND Internal Medicine
DX: R19.7 Diarrhea, unspecified (principal)

== ENCOUNTER → 2017-04-23 | Outpatient (REF) | PROVIDERS: ATTEND Physician Assistant | DX: R19.7 Diarrhea, unspecified (principal) ==

== ENCOUNTER → 2017-04-30 | Outpatient (REF) ==
[2017-04-30 10:41] LABS: MEAN CORPUSCULAR HEMOGLOBIN 30.6 pg (27.0-33.0); MEAN CORPUSCULAR HGB CONC 33.3 g/dl (32.0-36.5); MEAN CORPUSCULAR VOLUME 91.8 fl (80.0-96.0); RED CELL DISTRIBUTION WIDTH 13.4 % (11.5-14.5); WHITE BLOOD COUNT 12.8 K/mm3 (4.0-10.0)
[2017-04-30 10:50] LABS: CALCIUM LEVEL 9.1 MG/DL (8.8-10.2); CREATININE FOR GFR 3.35 MG/DL (0.55-1.02); GLOMERULAR FILTRATION RATE 13.8 (>32); POTASSIUM SERUM 4.5 MEQ/L (3.5-5.1)
== END ==
PROVIDERS: ATTEND Internal Medicine
DX: R19.7 Diarrhea, unspecified (principal)

== ENCOUNTER → 2017-05-01 | Outpatient (REF) ==
[2017-05-01 14:29] LABS: CALCIUM LEVEL 8.4 MG/DL (8.8-10.2); CREATININE FOR GFR 2.81 MG/DL (0.55-1.02); GLOMERULAR FILTRATION RATE 16.9 (>32); POTASSIUM SERUM 4.5 MEQ/L (3.5-5.1)
== END ==
PROVIDERS: ATTEND Internal Medicine
DX: N17.9 Acute kidney failure, unspecified (principal); N18.9 Chronic kidney disease, unspecified

== ENCOUNTER → 2017-05-02 | Outpatient (REF) ==
[2017-05-02 14:12] LABS: CALCIUM LEVEL 8.3 MG/DL (8.8-10.2); CREATININE FOR GFR 2.35 MG/DL (0.55-1.02); GLOMERULAR FILTRATION RATE 20.8 (>32); POTASSIUM SERUM 4.8 MEQ/L (3.5-5.1)
== END ==
PROVIDERS: ATTEND Internal Medicine
DX: N17.9 Acute kidney failure, unspecified (principal); N18.9 Chronic kidney disease, unspecified

== ENCOUNTER → 2017-05-06 | Outpatient (REF) ==
[2017-05-06 11:42] LABS: CALCIUM LEVEL 8.2 MG/DL (8.8-10.2); CREATININE FOR GFR 1.76 MG/DL (0.55-1.02)
[2017-05-06 11:44] LABS: POTASSIUM SERUM 5.3 MEQ/L (3.5-5.1)
[2017-05-06 14:32] LABS: MEAN CORPUSCULAR HEMOGLOBIN 31.3 pg (27.0-33.0); MEAN CORPUSCULAR HGB CONC 33.9 g/dl (32.0-36.5); MEAN CORPUSCULAR VOLUME 92.3 fl (80.0-96.0); RED CELL DISTRIBUTION WIDTH 13.9 % (11.5-14.5); WHITE BLOOD COUNT 10.9 K/mm3 (4.0-10.0)
== END ==
PROVIDERS: ATTEND Internal Medicine
DX: N18.9 Chronic kidney disease, unspecified (principal)

== ENCOUNTER → 2017-05-07 | Outpatient (REF) ==
[2017-05-07 16:30] LABS: CALCIUM LEVEL 8.7 MG/DL (8.8-10.2); CREATININE FOR GFR 1.88 MG/DL (0.55-1.02); GLOMERULAR FILTRATION RATE 26.9 (>32); POTASSIUM SERUM 4.9 MEQ/L (3.5-5.1)
[2017-05-07 16:43] LABS: MEAN CORPUSCULAR HEMOGLOBIN 31.3 pg (27.0-33.0); MEAN CORPUSCULAR VOLUME 94.8 fl (80.0-96.0); RED CELL DISTRIBUTION WIDTH 14.1 % (11.5-14.5); WHITE BLOOD COUNT 11.3 K/mm3 (4.0-10.0)
== END ==
PROVIDERS: ATTEND Internal Medicine
DX: R19.7 Diarrhea, unspecified (principal)

== ENCOUNTER → 2017-05-20 | Outpatient (REF) ==
[2017-05-20 10:44] LABS: CALCIUM LEVEL 8.5 MG/DL (8.8-10.2); CREATININE FOR GFR 2.26 MG/DL (0.55-1.02); GLOMERULAR FILTRATION RATE 21.7 (>32); POTASSIUM SERUM 4.6 MEQ/L (3.5-5.1)
== END ==
PROVIDERS: ATTEND Internal Medicine
DX: N18.9 Chronic kidney disease, unspecified (principal)

== ENCOUNTER → 2017-05-23 | Outpatient (REF) ==
[2017-05-23 14:28] LABS: CALCIUM LEVEL 8.7 MG/DL (8.8-10.2); CREATININE FOR GFR 1.99 MG/DL (0.55-1.02); GLOMERULAR FILTRATION RATE 25.2 (>32); POTASSIUM SERUM 4.9 MEQ/L (3.5-5.1)
== END ==
PROVIDERS: ATTEND Internal Medicine
DX: N18.9 Chronic kidney disease, unspecified (principal)

== ENCOUNTER → 2017-05-28 | Outpatient (REF) ==
[2017-05-28 10:19] LABS: CALCIUM LEVEL 8.8 MG/DL (8.8-10.2); CREATININE FOR GFR 1.8 MG/DL (0.55-1.02); GLOMERULAR FILTRATION RATE 28.3 (>32); POTASSIUM SERUM 4.8 MEQ/L (3.5-5.1)
== END ==
PROVIDERS: ATTEND Internal Medicine
DX: N18.9 Chronic kidney disease, unspecified (principal)

== ENCOUNTER → 2017-06-05 | Outpatient (REF) | PROVIDERS: ATTEND Internal Medicine | DX: R19.7 Diarrhea, unspecified (principal) ==

== ENCOUNTER → 2017-06-17 | Outpatient (REF) | PROVIDERS: ATTEND Internal Medicine | DX: R19.7 Diarrhea, unspecified (principal) ==

== ENCOUNTER → 2017-06-18 | Outpatient (REF) ==
[2017-06-18 10:41] LABS: MEAN CORPUSCULAR HEMOGLOBIN 29.6 pg (27.0-33.0); MEAN CORPUSCULAR HGB CONC 32.6 g/dl (32.0-36.5); MEAN CORPUSCULAR VOLUME 90.6 fl (80.0-96.0); RED CELL DISTRIBUTION WIDTH 13.2 % (11.5-14.5); WHITE BLOOD COUNT 11.7 10^3/uL (4.0-10.0)
[2017-06-18 11:05] LABS: CALCIUM LEVEL 9.4 MG/DL (8.8-10.2); CREATININE FOR GFR 2.22 MG/DL (0.55-1.02); GLOMERULAR FILTRATION RATE 22.2 (>32)
== END ==
PROVIDERS: ATTEND Internal Medicine
DX: R19.7 Diarrhea, unspecified (principal)

== ENCOUNTER 2017-07-09 13:24 | Day surgery (SDC) | payer MEDICARE, OTHER ==
[~2017-07-09] VITALS: Ht 165.1 cm; Wt 81.8 kg
[~2017-07-09 13:24] MED LIST changes: +FECAL MICROBIOTA PREPARATION 250 ML BTL (J3590) XX ONE; +LIDOCAINE 2% INJ 100 MG/5 ML SDV (FOR ANES.) As Ordered ONE; +PROPOFOL 200 MG/20 ML VIAL As Ordered ONE
[2017-07-09] MEDS ORDERED: NS 1,000 ML IV ONE (13:30)
[2017-07-09] MEDS ORDERED: PROPOFOL 200 MG/20 ML VIAL As Ordered ONE (15:12)
--- NOTE | 2017-07-09 15:19 | ROOR ---
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 Procedure: Pre-Anesthesia Assessment: - The heart rate, respiratory rate, oxygen saturations, blood pressure, adequacy of pulmonary ventilation, and response to care were monitored throughout the procedure. The Colonoscope was introduced through the anus and advanced to the cecum, identified by appendiceal orifice and ileocecal valve. The colonoscopy was performed without difficulty. The patient tolerated the procedure well. The quality of the bowel preparation was good. Findings: The perianal and digital rectal examinations were normal. Non-bleeding internal hemorrhoids were found during retroflexion. The hemorrhoids were small and Grade I (internal hemorrhoids that do not prolapse). Scattered small-mouthed diverticula were found in the recto-sigmoid colon, sigmoid colon and descending colon. Fecal Microbiota Transplant (Bacteriotherapy): Donor stool was prepared as per protocol. Approximately 250 mL of the emulsified donor stool was instilled in the cecum. A detailed colonoscopic exam could not be performed upon scope withdrawal secondary to limited visibility from the instilled stool. The exam was otherwise without abnormality. Impression: - Non-bleeding internal hemorrhoids. - Diverticulosis in the recto-sigmoid colon, in the sigmoid colon and in the descending colon. - The examination was otherwise normal. - Fecal Microbiota Transplant (Bacteriotherapy) performed in the cecum. - No specimens collected. - The exam was otherwise normal to the cecum. Recommendation: - Patient has a contact number available for emergencies. The signs and symptoms of potential delayed complications were discussed with the patient. Return to normal activities tomorrow. Written discharge instructions were provided to the patient. - High fiber diet. - Discharge patient to home. - Continue present medications. - Repeat colonoscopy for symptoms only. - Return to referring physician. - The findings and recommendations were discussed with the patient's family. Conrad Lorenz MD Cnorad Lorenz MD 07/09/2017 3:18:39 PM This report has been signed electronically. Number of Addenda: 0 Note Initiated On: 07/09/2017 2:56 PM Estimated Blood Loss: Estimated blood loss: none.
[2017-07-09 15:50] VITALS: BP 181/72
== END 2017-07-09 15:59 | disposition home or self-care (01) ==
LOC: M OPP 13:24
PROVIDERS: ATTEND Internal Medicine Gastroenterology
DX: A04.71 Enterocolitis due to Clostridium difficile, recurrent (principal); K64.0 First degree hemorrhoids; K57.30 Diverticulosis of large intestine without perforation or abscess without bleeding; I48.91 Unspecified atrial fibrillation; I25.10 Atherosclerotic heart disease of native coronary artery without angina pectoris; I50.9 Heart failure, unspecified; I11.0 Hypertensive heart disease with heart failure; E78.5 Hyperlipidemia, unspecified; E03.9 Hypothyroidism, unspecified; F41.9 Anxiety disorder, unspecified; F32.9 Major depressive disorder, single episode, unspecified; F03.90 Unspecified dementia, unspecified severity, without behavioral disturbance, psychotic disturbance, mood disturbance, and anxiety; N18.4 Chronic kidney disease, stage 4 (severe); Z99.2 Dependence on renal dialysis; Z91.011 Allergy to milk products; Z88.8 Allergy status to other drugs, medicaments and biological substances; Z79.899 Other long term (current) drug therapy; Z87.891 Personal history of nicotine dependence

== ENCOUNTER → 2017-07-16 | Outpatient (REF) | payer MEDICARE, OTHER ==
[~2017-07-16] MED LIST changes: -FECAL MICROBIOTA PREPARATION 250 ML BTL (J3590) XX ONE; -LIDOCAINE 2% INJ 100 MG/5 ML SDV (FOR ANES.) As Ordered ONE; -PROPOFOL 200 MG/20 ML VIAL As Ordered ONE
[2017-07-16 13:52] LABS: MEAN CORPUSCULAR HGB CONC 31.9 g/dl (32.0-36.5); PLATELET COUNT, AUTOMATED 247 10^3/uL (150-450); RED CELL DISTRIBUTION WIDTH 13.7 % (11.5-14.5); WHITE BLOOD COUNT 14.4 10^3/uL (4.0-10.0)
[2017-07-16 14:13] LABS: CALCIUM LEVEL 8.9 MG/DL (8.8-10.2); CREATININE FOR GFR 1.71 MG/DL (0.55-1.02); GLOMERULAR FILTRATION RATE 29.9 (>32); POTASSIUM SERUM 5.1 MEQ/L (3.5-5.1)
== END ==
PROVIDERS: ATTEND Internal Medicine
DX: R19.7 Diarrhea, unspecified (principal)

== ENCOUNTER → 2017-07-18 | Outpatient (REF) | payer MEDICARE, OTHER ==
[2017-07-18 13:16] LABS: MEAN CORPUSCULAR HEMOGLOBIN 29.4 pg (27.0-33.0); MEAN CORPUSCULAR HGB CONC 31.8 g/dl (32.0-36.5); MEAN CORPUSCULAR VOLUME 92.4 fl (80.0-96.0); PLATELET COUNT, AUTOMATED 276 10^3/uL (150-450); RED CELL DISTRIBUTION WIDTH 13.6 % (11.5-14.5); WHITE BLOOD COUNT 12.5 10^3/uL (4.0-10.0)
[2017-07-18 13:18] LABS: CREATININE FOR GFR 1.61 MG/DL (0.55-1.02); GLOMERULAR FILTRATION RATE 32.1 (>32)
[2017-07-18 13:20] LABS: POTASSIUM SERUM 5.3 MEQ/L (3.5-5.1)
== END ==
PROVIDERS: ATTEND Internal Medicine
DX: R19.7 Diarrhea, unspecified (principal)

== ENCOUNTER → 2017-07-21 | Outpatient (REF) | payer MEDICARE, OTHER ==
[2017-07-21 13:37] LABS: CALCIUM LEVEL 8.8 MG/DL (8.8-10.2); CREATININE FOR GFR 1.52 MG/DL (0.55-1.02); GLOMERULAR FILTRATION RATE 34.3 (>32)
[2017-07-21 13:52] LABS: POTASSIUM SERUM 5.5 MEQ/L (3.5-5.1)
== END ==
PROVIDERS: ATTEND Internal Medicine
DX: I50.9 Heart failure, unspecified (principal)

== ENCOUNTER → 2017-07-22 | Outpatient (REF) | payer MEDICARE, OTHER | PROVIDERS: ATTEND Internal Medicine | DX: N18.9 Chronic kidney disease, unspecified (principal) ==

== ENCOUNTER → 2017-07-24 | Outpatient (REF) | payer MEDICARE, OTHER ==
[2017-07-24 08:45] LABS: CALCIUM LEVEL 8.6 MG/DL (8.8-10.2); CREATININE FOR GFR 1.62 MG/DL (0.55-1.02); GLOMERULAR FILTRATION RATE 31.8 (>32)
[2017-07-24 09:01] LABS: POTASSIUM SERUM 5.3 MEQ/L (3.5-5.1)
== END ==
PROVIDERS: ATTEND Internal Medicine
DX: E87.5 Hyperkalemia (principal)

== ENCOUNTER → 2017-07-29 | Outpatient (REF) | payer MEDICARE, OTHER ==
[2017-07-29 12:55] LABS: CALCIUM LEVEL 8.5 MG/DL (8.8-10.2); CREATININE FOR GFR 1.29 MG/DL (0.55-1.02); GLOMERULAR FILTRATION RATE 41.4 (>32); POTASSIUM SERUM 4.7 MEQ/L (3.5-5.1)
== END ==
PROVIDERS: ATTEND Internal Medicine
DX: N18.9 Chronic kidney disease, unspecified (principal)

== ENCOUNTER → 2017-08-19 | Outpatient (REF) | payer MEDICARE, OTHER | PROVIDERS: ATTEND Internal Medicine | DX: E55.9 Vitamin D deficiency, unspecified (principal) ==

== ENCOUNTER → 2017-09-08 | Outpatient (REF) | payer MEDICARE, OTHER ==
[2017-09-08 13:32] LABS: HEMATOCRIT 44.9 % (36.0-47.0); HEMOGLOBIN 14.7 g/dl (12.0-16.0); MEAN CORPUSCULAR HEMOGLOBIN 29.3 pg (27.0-33.0); MEAN CORPUSCULAR HGB CONC 32.7 g/dl (32.0-36.5); MEAN CORPUSCULAR VOLUME 89.6 fl (80.0-96.0); PLATELET COUNT, AUTOMATED 210 10^3/uL (150-450); RED BLOOD COUNT 5.01 10^6/uL (4.00-5.40); RED CELL DISTRIBUTION WIDTH 13.4 % (11.5-14.5); WHITE BLOOD COUNT 10.9 10^3/uL (4.0-10.0)
[2017-09-08 14:01] LABS: ANION GAP 8 MEQ/L (8-16); BLOOD UREA NITROGEN 32 MG/DL (7-18); CALCIUM LEVEL 8.7 MG/DL (8.8-10.2); CARBON DIOXIDE LEVEL 27 MEQ/L (21-32); CHLORIDE LEVEL 104 MEQ/L (98-107); CREATININE FOR GFR 1.58 MG/DL (0.55-1.02); GLOMERULAR FILTRATION RATE 32.8 (>32); GLUCOSE, FASTING 136 MG/DL (83-110); SODIUM LEVEL 139 MEQ/L (136-145)
== END ==
DX: I50.9 Heart failure, unspecified (principal)
CPT/HCPCS: 80048

== ENCOUNTER → 2017-12-23 | Outpatient (REF) | payer MEDICARE, OTHER ==
[2017-12-23 10:41] LABS: BASO % 0.3 % (0.0-1.0); EOS # 0.2 10^3/uL (0.0-0.50); EOS % 1.1 % (0.0-3.0); HEMOGLOBIN 14.8 g/dl (12.0-15.5); IMMATURE GRANULOCYTE % 0.5 % (0-3.0); LYMPH # 0.9 10^3/uL (1.5-4.5); MEAN CORPUSCULAR HEMOGLOBIN 29.5 pg (27.0-33.0); MEAN CORPUSCULAR HGB CONC 32.9 g/dl (32.0-36.5); MEAN CORPUSCULAR VOLUME 89.8 fl (80.0-96.0); MONO % 6.4 % (0.0-5.0); NEUTROPHILS # 12.7 10^3/uL (1.8-7.7); NEUTROPHILS % 85.7 % (36.0-66.0); PLATELET COUNT, AUTOMATED 200 10^3/uL (150-450); RED BLOOD COUNT 5.01 10^6/uL (4.00-5.40); WHITE BLOOD COUNT 14.8 10^3/uL (4.0-10.0)
[2017-12-23 11:19] LABS: PTH INTACT 75.8 PG/ML (18.5-88.0)
[2017-12-23 11:45] LABS: ALBUMIN 3.2 GM/DL (3.2-5.2); ANION GAP 10 MEQ/L (8-16); BLOOD UREA NITROGEN 30 MG/DL (7-18); CALCIUM LEVEL 9.2 MG/DL (8.8-10.2); CARBON DIOXIDE LEVEL 26 MEQ/L (21-32); CHLORIDE LEVEL 102 MEQ/L (98-107); CREATININE FOR GFR 1.72 MG/DL (0.55-1.30); GLOMERULAR FILTRATION RATE 29.7 (>32); GLUCOSE, FASTING 194 MG/DL (70-100); PHOSPHORUS LEVEL 2.7 MG/DL (2.5-4.9); POTASSIUM SERUM 4.7 MEQ/L (3.5-5.1); SODIUM LEVEL 138 MEQ/L (136-145)
[2017-12-23 11:48] LABS: MAGNESIUM LEVEL 1.8 MG/DL (1.8-2.4); URIC ACID 3.7 MG/DL (2.6-6.0)
== END ==
DX: M10.9 Gout, unspecified (principal); N18.9 Chronic kidney disease, unspecified
CPT/HCPCS: 83735

== ENCOUNTER → 2017-12-24 | Outpatient (REF) | payer MEDICARE, OTHER | DX: M25.552 Pain in left hip (principal); Z53.9 Procedure and treatment not carried out, unspecified reason ==

== ENCOUNTER → 2017-12-24 | Outpatient (CLI) | payer MEDICARE, OTHER | LOC: M RAD 15:35 | DX: M16.12 Unilateral primary osteoarthritis, left hip (principal); M17.12 Unilateral primary osteoarthritis, left knee; M25.762 Osteophyte, left knee; M79.605 Pain in left leg; Z91.81 History of falling | CPT/HCPCS: 73552 ==

== ENCOUNTER → 2018-02-17 | Outpatient (REF) ==
[2018-02-17 12:05] LABS: TOTAL 25(OH) VITAMIN D 21.4 NG/ML (30.0-100.0)
== END ==
DX: E55.9 Vitamin D deficiency, unspecified (principal)

== ENCOUNTER → 2018-04-29 | Outpatient (REF) ==
[2018-04-29 09:11] LABS: HEMOGLOBIN 14.7 g/dl (12.0-15.5); MEAN CORPUSCULAR HEMOGLOBIN 31.1 pg (27.0-33.0); MEAN CORPUSCULAR HGB CONC 32.7 g/dl (32.0-36.5); MEAN CORPUSCULAR VOLUME 95.3 fl (80.0-96.0); PLATELET COUNT, AUTOMATED 192 10^3/uL (150-450); RED BLOOD COUNT 4.72 10^6/uL (4.00-5.40); RED CELL DISTRIBUTION WIDTH 12.9 % (11.5-14.5); WHITE BLOOD COUNT 10.2 10^3/uL (4.0-10.0)
[2018-04-29 10:03] LABS: ALBUMIN 3.2 GM/DL (3.2-5.2); ANION GAP 11 MEQ/L (8-16); BLOOD UREA NITROGEN 30 MG/DL (7-18); CALCIUM LEVEL 8.7 MG/DL (8.8-10.2); CARBON DIOXIDE LEVEL 26 MEQ/L (21-32); CHLORIDE LEVEL 107 MEQ/L (98-107); GLOMERULAR FILTRATION RATE 30.1 (>32); GLUCOSE, FASTING 178 MG/DL (70-100); MAGNESIUM LEVEL 1.9 MG/DL (1.8-2.4); PHOSPHORUS LEVEL 2.7 MG/DL (2.5-4.9); SODIUM LEVEL 144 MEQ/L (136-145); URIC ACID 4.3 MG/DL (2.6-6.0)
[2018-04-29 10:28] LABS: PTH INTACT 95.7 PG/ML (18.5-88.0)
== END ==
DX: M10.9 Gout, unspecified (principal); N18.9 Chronic kidney disease, unspecified; E05.90 Thyrotoxicosis, unspecified without thyrotoxic crisis or storm

== ENCOUNTER → 2018-06-09 | Outpatient (REF) ==
[2018-06-09 10:32] LABS: HEMATOCRIT 47.8 % (36.0-47.0); HEMOGLOBIN 15.8 g/dl (12.0-15.5); MEAN CORPUSCULAR HEMOGLOBIN 31.8 pg (27.0-33.0); MEAN CORPUSCULAR HGB CONC 33.1 g/dl (32.0-36.5); MEAN CORPUSCULAR VOLUME 96.2 fl (80.0-96.0); PLATELET COUNT, AUTOMATED 200 10^3/uL (150-450); RED BLOOD COUNT 4.97 10^6/uL (4.00-5.40); RED CELL DISTRIBUTION WIDTH 12.8 % (11.5-14.5); WHITE BLOOD COUNT 10.9 10^3/uL (4.0-10.0)
[2018-06-09 11:16] LABS: ALBUMIN 3.3 GM/DL (3.2-5.2); ANION GAP 9 MEQ/L (8-16); BLOOD UREA NITROGEN 31 MG/DL (7-18); CALCIUM LEVEL 8.8 MG/DL (8.8-10.2); CARBON DIOXIDE LEVEL 29 MEQ/L (21-32); CHLORIDE LEVEL 105 MEQ/L (98-107); CREATININE FOR GFR 1.65 MG/DL (0.55-1.30); GLOMERULAR FILTRATION RATE 31.2 (>32); GLUCOSE, FASTING 170 MG/DL (70-100); PHOSPHORUS LEVEL 2.6 MG/DL (2.5-4.9); POTASSIUM SERUM 4.7 MEQ/L (3.5-5.1); SODIUM LEVEL 143 MEQ/L (136-145); URIC ACID 3.8 MG/DL (2.6-6.0)
[2018-06-09 11:41] LABS: PTH INTACT 59.5 PG/ML (18.5-88.0)
== END ==
DX: N18.9 Chronic kidney disease, unspecified (principal)